=== PATIENT | female | born 1955 | race African-American/Black ===

== ENCOUNTER 2017-06-20 12:09 | Inpatient (IN) ==
[2017-06-20] MEDS ORDERED: ALBUTEROL/IPRATROPIUM 3 ML NEB RESP TX STA (12:38)
[2017-06-20] MEDS ORDERED: SODIUM CHLORIDE 0.9% 500 ML IV STA (12:38)
[2017-06-20] MEDS ORDERED: MORPHINE 2 MG/1 ML SYRINGE IV STA (12:38)
[2017-06-20] MEDS ORDERED: ONDANSETRON 4 MG/2 ML VIAL IV STA (12:38)
[2017-06-20] MEDS ORDERED: ASPIRIN 325 MG TABLET PO STA (12:38)
[2017-06-20] MEDS ORDERED: ONDANSETRON 4 MG/2 ML VIAL ONE (13:00)
[2017-06-20] MEDS ORDERED: ASPIRIN 325 MG TABLET ONE (13:01)
[2017-06-20] MEDS ORDERED: MORPHINE 2 MG/1 ML SYRINGE ONE (13:01)
[2017-06-20 13:07] LABS: Basophils # 0.1 10*3/uL (0.0-0.2); Basophils % 1.2 % (0.0-0.8); Eosinophils # 0.3 10*3/uL (0.0-0.87); Eosinophils % 2.7 % (0.00-10.9); Hematocrit 39.6 VOL% (35.7-47.0); Hemoglobin 13.6 GM/DL (12.0-16.0); Immature Granulocytes Absolute 0.11 #; Lymphocytes # 2.5 10*3/uL (1.4-4.0); Lymphocytes % 23.3 % (21.3-54.2); Mean Corpuscular HGB Conc 34.3 GM/DL (32-36); Mean Corpuscular Hemoglobin 30 PG (27-34); Mean Platelet Volume 10.1 FL (9.6-12.0); Monocytes # 0.9 10*3/uL (0.11-0.8); Monocytes % 8.6 % (1.7-12.7); Neutrophils # 6.8 10*3/uL (1.4-7.4); Neutrophils % 63.2 % (38.7-73.9); Platelet Count 211 T/CUMM (130-400); Red Blood Count 4.55 MC/CUMM (3.8-5.5); Red Cell Distribution Width 14.8 % (9.3-17.3); White Blood Count 10.8 T/CUMM (4-12)
[2017-06-20 13:18] LABS: INR 1.1; PT Patient Result 11.1 SECS
[2017-06-20 13:44] LABS: Albumin 3.7 G/DL (3.4-5.0); Bilirubin,Total 0.6 MG/DL (0.2-1.0); Calcium 9.2 MG/DL (8.5-10.1); Magnesium 1.8 MG/DL (1.8-2.4); Osmolality,Calculated 275.7 MOS/KG (273-304); Potassium 2.6 MMOL/L (3.5-5.1); Total Protein 6.5 G/DL (6.4-8.3)
[2017-06-20] MEDS ORDERED: POTASSIUM CHLORIDE 20 MEQ TABLET PO STA (13:49)
[2017-06-20] MEDS ORDERED: DEXTROSE 50% 25 GM/50 ML VIAL IV STA (13:50)
[2017-06-20] MEDS ORDERED: POTASSIUM CHLORIDE 20 MEQ TABLET PO ONE (14:06)
[2017-06-20] MEDS ORDERED: DEXTROSE 50% 25 GM/50 ML SYRINGE IV ONE (14:06)
[2017-06-20] MEDS ORDERED: ONDANSETRON 4 MG/2 ML VIAL IV PRN (15:16)
[2017-06-20] MEDS ORDERED: ALUM/MAG/SIMETH/LIDO VISC 1:1 30 ML BOTTLE PO STA (15:34)
[2017-06-20] MEDS ORDERED: ALUM/MAG/SIMETH/LIDO VISC 1:1 30 ML BOTTLE PO ONE (15:57)
[2017-06-20] MEDS ORDERED: ALBUTEROL/IPRATROPIUM 3 ML NEB RESP TX PRN (16:11)
[2017-06-20] MEDS ORDERED: ALBUTEROL 2.5 MG/3 ML NEB RESP TX PRN (16:11)
[2017-06-20] MEDS: ALBUTEROL 2.5 MG/3 ML NEB RESP TX SCH (20:32)
[2017-06-20 20:52] LABS: Troponin I Only 0.049 NG/ML (0.00-0.045)
[2017-06-20] MEDS ORDERED: THEOPHYLLINE ER 200 MG TABLET PO SCH (21:00)
[2017-06-20] MEDS: ACETAMINOPHEN 325 MG TABLET PO PRN (21:59)
[2017-06-20] MEDS: THEOPHYLLINE ER (24 HR) 200 MG CAPSULE PO SCH (21:59)
[2017-06-20] MEDS: MONTELUKAST 10 MG TABLET PO SCH (22:00)
[2017-06-20] MEDS: FLUTICASONE/SALMETEROL 250-50 DISKUS 14 DOSE INH SCH (22:00)
[2017-06-20] MEDS: SODIUM CHLORIDE 0.9% 1,000 ML IV SCH (22:01)
[2017-06-20] MEDS ORDERED: ALBUTEROL 2.5 MG/3 ML NEB RESP TX ONE (23:32)
[2017-06-21] MEDS: ALBUTEROL 2.5 MG/3 ML NEB RESP TX SCH ×4 (00:19→19:51)
[2017-06-21] MEDS: POTASSIUM CHLORIDE 20 MEQ TABLET PO PRN ×5 (06:21→21:44)
[2017-06-21 06:31] LABS: Basophils # 0.1 10*3/uL (0.0-0.2); Eosinophils # 0.3 10*3/uL (0.0-0.87); Eosinophils % 3.3 % (0.00-10.9); Hematocrit 35.1 VOL% (35.7-47.0); Immature Granulocytes % 0.4 %; Immature Granulocytes Absolute 0.04 #; Lymphocytes # 2.5 10*3/uL (1.4-4.0); Mean Corpuscular HGB Conc 34.2 GM/DL (32-36); Mean Corpuscular Hemoglobin 30 PG (27-34); Mean Corpuscular Volume 87.8 FL (87-102); Mean Platelet Volume 10.4 FL (9.6-12.0); Monocytes # 0.9 10*3/uL (0.11-0.8); Monocytes % 9.1 % (1.7-12.7); Neutrophils # 5.7 10*3/uL (1.4-7.4); Neutrophils % 60.2 % (38.7-73.9); Platelet Count 176 T/CUMM (130-400); White Blood Count 9.4 T/CUMM (4-12)
[2017-06-21 06:54] LABS: Calcium 8.8 MG/DL (8.5-10.1); Osmolality,Calculated 278.5 MOS/KG (273-304); Potassium 2.7 MMOL/L (3.5-5.1)
[2017-06-21 07:04] LABS: Free T4 (Free Thyroxine) 1.31 NG/DL (0.76-1.46); Thyroid Stimulating Hormone 1.17 uIU/ml (0.358-3.74)
[2017-06-21 07:16] LABS: Apearance,Urine CLEAR (Clear); Bilirubin,Urine Negative (Negative); Blood, Urine Negative (Negative); Glucose,Urine (UA) Negative (Negative); Hyaline Casts,Urine 1 /LPF (0-3); Ketones,Urine Negative (Negative); Mucus,Urine Occasional /LPF (Occasional); Nitrite,Urine Negative (Negative); Protein,Urine Negative; RBC,Urine <1 /HPF (0-4); Squamous Epithelial Cell,Urine Occasional /HPF (0-10); Urine Color Straw (Yellow); Urine Specific Gravity 1.005 (1.001-1.035); Urine Urobilinogen < 2.0 EU/DL (0.2-1.0); WBC,Urine <1 /HPF (0-6)
[2017-06-21] MEDS ORDERED: POTASSIUM CHLORIDE RIDER 10 MEQ in PREMIX 1 EACH IV PRN (07:56)
[2017-06-21] MEDS: POTASSIUM CHLORIDE 20 MEQ TABLET PO SCH (08:36)
[2017-06-21] MEDS: COLCHICINE 0.6 MG TABLET PO SCH (08:37)
[2017-06-21 10:34] LABS: Troponin I Only 0.053 NG/ML (0.00-0.045)
[2017-06-21] MEDS: THEOPHYLLINE ER (24 HR) 200 MG CAPSULE PO SCH ×2 (10:52→21:44)
[2017-06-21] MEDS: CHOLECALCIFEROL 400 UNIT TABLET PO SCH (10:52)
[2017-06-21] MEDS: prednisoLONE 5 MG TABLET PO SCH (10:52)
[2017-06-21] MEDS: ASPIRIN EC 81 MG TABLET PO SCH (10:53)
[2017-06-21] MEDS: MULTIVITAMIN (BEROCCA) TABLET PO SCH (10:53)
[2017-06-21] MEDS: PRAVASTATIN 40 MG TABLET PO SCH (10:53)
[2017-06-21] MEDS: ACETAMINOPHEN 325 MG TABLET PO PRN ×2 (10:54→16:59)
[2017-06-21] MEDS: PANTOPRAZOLE 40 MG TABLET PO SCH (10:54)
[2017-06-21] MEDS: FLUTICASONE/SALMETEROL 250-50 DISKUS 14 DOSE INH SCH ×2 (10:56→21:45)
[2017-06-21] MEDS: DILTIAZEM CD 120 MG CAPSULE PO SCH (10:56)
[2017-06-21] MEDS: metOLazone 5 MG TABLET PO SCH (10:57)
[2017-06-21] MEDS: DIGOXIN 0.125 MG TABLET PO SCH (12:58)
[2017-06-21] MEDS: diphenhydrAMINE CAP 25 MG CAPSULE PO PRN (19:09)
[2017-06-21] MEDS: ALBUTEROL/IPRATROPIUM 3 ML NEB RESP TX SCH (19:21)
[2017-06-21] MEDS: MONTELUKAST 10 MG TABLET PO SCH (21:44)
[2017-06-21] MEDS: DOCUSATE SODIUM 100 MG CAPSULE PO SCH (21:44)
[2017-06-21] MEDS: POLYETHYLENE GLYCOL POWDER 17 GM PACK PO SCH (21:45)
[2017-06-22] MEDS: ALBUTEROL 2.5 MG/3 ML NEB RESP TX SCH ×3 (00:31→12:11)
[2017-06-22] MEDS: ALBUTEROL/IPRATROPIUM 3 ML NEB RESP TX SCH ×5 (00:32→20:38)
[2017-06-22] MEDS: SODIUM CHLORIDE 0.9% 1,000 ML IV SCH ×4 (00:38→14:26)
[2017-06-22 05:20] LABS: Calcium 8.7 MG/DL (8.5-10.1); Osmolality,Calculated 279.4 MOS/KG (273-304); Potassium 3.4 MMOL/L (3.5-5.1)
[2017-06-22] MEDS: POTASSIUM CHLORIDE 20 MEQ TABLET PO PRN ×2 (06:19→11:26)
[2017-06-22] MEDS: diphenhydrAMINE CAP 25 MG CAPSULE PO PRN ×2 (06:46→19:25)
[2017-06-22] MEDS: POLYETHYLENE GLYCOL POWDER 17 GM PACK PO SCH ×2 (08:57→22:04)
[2017-06-22] MEDS: MULTIVITAMIN (BEROCCA) TABLET PO SCH (08:58)
[2017-06-22] MEDS: THEOPHYLLINE ER (24 HR) 200 MG CAPSULE PO SCH ×2 (09:00→22:04)
[2017-06-22] MEDS: DILTIAZEM CD 120 MG CAPSULE PO SCH (09:00)
[2017-06-22] MEDS: metOLazone 5 MG TABLET PO SCH (09:00)
[2017-06-22] MEDS: CHOLECALCIFEROL 400 UNIT TABLET PO SCH (09:00)
[2017-06-22] MEDS: ASPIRIN EC 81 MG TABLET PO SCH (09:00)
[2017-06-22] MEDS: prednisoLONE 5 MG TABLET PO SCH (09:00)
[2017-06-22] MEDS: COLCHICINE 0.6 MG TABLET PO SCH (09:00)
[2017-06-22] MEDS: POTASSIUM CHLORIDE 20 MEQ TABLET PO SCH (09:01)
[2017-06-22] MEDS: PRAVASTATIN 40 MG TABLET PO SCH (09:01)
[2017-06-22] MEDS: PANTOPRAZOLE 40 MG TABLET PO SCH (09:01)
[2017-06-22] MEDS: FLUTICASONE/SALMETEROL 250-50 DISKUS 14 DOSE INH SCH ×2 (09:02→22:05)
[2017-06-22] MEDS: DOCUSATE SODIUM 100 MG CAPSULE PO SCH ×2 (09:02→22:05)
[2017-06-22] MEDS: DIGOXIN 0.125 MG TABLET PO SCH (13:06)
[2017-06-22] MEDS: MONTELUKAST 10 MG TABLET PO SCH (22:05)
[2017-06-23] MEDS: ALBUTEROL/IPRATROPIUM 3 ML NEB RESP TX SCH ×4 (01:18→19:14)
[2017-06-23] MEDS: diphenhydrAMINE CAP 25 MG CAPSULE PO PRN ×2 (04:15→12:35)
[2017-06-23] MEDS: SODIUM CHLORIDE 0.9% 1,000 ML IV SCH (05:41)
[2017-06-23 05:51] LABS: Calcium 8.7 MG/DL (8.5-10.1); Osmolality,Calculated 277.4 MOS/KG (273-304); Potassium 3.9 MMOL/L (3.5-5.1)
[2017-06-23] MEDS: DILTIAZEM CD 120 MG CAPSULE PO SCH (08:44)
[2017-06-23] MEDS: POLYETHYLENE GLYCOL POWDER 17 GM PACK PO SCH ×2 (08:44→22:11)
[2017-06-23] MEDS: CHOLECALCIFEROL 400 UNIT TABLET PO SCH (08:46)
[2017-06-23] MEDS: POTASSIUM CHLORIDE 20 MEQ TABLET PO SCH (08:46)
[2017-06-23] MEDS: MULTIVITAMIN (BEROCCA) TABLET PO SCH (08:46)
[2017-06-23] MEDS: THEOPHYLLINE ER (24 HR) 200 MG CAPSULE PO SCH ×2 (08:46→22:10)
[2017-06-23] MEDS: DOCUSATE SODIUM 100 MG CAPSULE PO SCH ×2 (08:46→22:10)
[2017-06-23] MEDS: COLCHICINE 0.6 MG TABLET PO SCH (08:46)
[2017-06-23] MEDS: prednisoLONE 5 MG TABLET PO SCH (08:47)
[2017-06-23] MEDS: PRAVASTATIN 40 MG TABLET PO SCH (08:47)
[2017-06-23] MEDS: ASPIRIN EC 81 MG TABLET PO SCH (08:47)
[2017-06-23] MEDS: FLUTICASONE/SALMETEROL 250-50 DISKUS 14 DOSE INH SCH ×2 (08:48→22:10)
[2017-06-23] MEDS: PANTOPRAZOLE 40 MG TABLET PO SCH (10:48)
[2017-06-23] MEDS: metOLazone 5 MG TABLET PO SCH (10:48)
[2017-06-23] MEDS ORDERED: DIAZEPAM 5 MG TABLET PO ONE (11:49)
[2017-06-23] MEDS ORDERED: diphenhydrAMINE CAP 25 MG CAPSULE PO ONE (11:49)
[2017-06-23] MEDS: DIGOXIN 0.125 MG TABLET PO SCH (12:28)
[2017-06-23] MEDS ORDERED: NITROGLYCERIN SL 0.4 MG TABLET SL PRN (13:26)
[2017-06-23] MEDS: MONTELUKAST 10 MG TABLET PO SCH (22:10)
[2017-06-24] MEDS: ALBUTEROL/IPRATROPIUM 3 ML NEB RESP TX SCH ×4 (00:09→21:42)
[2017-06-24] MEDS ORDERED: SODIUM CHLORIDE 0.45% 1,000 ML IV SCH (03:00)
[2017-06-24 05:06] LABS: Basophils # 0.1 10*3/uL (0.0-0.2); Basophils % 1.1 % (0.0-0.8); Eosinophils # 0.4 10*3/uL (0.0-0.87); Eosinophils % 4.7 % (0.00-10.9); Hematocrit 34.2 VOL% (35.7-47.0); Hemoglobin 11.4 GM/DL (12.0-16.0); Immature Granulocytes % 0.4 %; Immature Granulocytes Absolute 0.04 #; Lymphocytes # 2.6 10*3/uL (1.4-4.0); Lymphocytes % 28.1 % (21.3-54.2); Mean Corpuscular HGB Conc 33.3 GM/DL (32-36); Mean Corpuscular Hemoglobin 30 PG (27-34); Mean Platelet Volume 10.1 FL (9.6-12.0); Monocytes # 0.8 10*3/uL (0.11-0.8); Monocytes % 8.8 % (1.7-12.7); Neutrophils # 5.2 10*3/uL (1.4-7.4); Neutrophils % 56.9 % (38.7-73.9); Platelet Count 180 T/CUMM (130-400); Red Cell Distribution Width 15.9 % (9.3-17.3); White Blood Count 9.1 T/CUMM (4-12)
[2017-06-24 05:36] LABS: Potassium 3.8 MMOL/L (3.5-5.1)
[2017-06-24] MEDS: diphenhydrAMINE CAP 25 MG CAPSULE PO PRN ×2 (05:41→18:29)
[2017-06-24] MEDS ORDERED: DIAZEPAM 5 MG TABLET PO ONE (06:00)
[2017-06-24] MEDS ORDERED: diphenhydrAMINE CAP 25 MG CAPSULE PO ONE (06:00)
[2017-06-24] MEDS ORDERED: HEPARIN/NACL 0.9% 2 UNITS/ML 2,000 ML IV ONE (07:22)
[2017-06-24] MEDS ORDERED: LIDOCAINE 1% 20 ML VIAL ONE (07:22)
[2017-06-24] MEDS ORDERED: fentaNYL 100 MCG/2 ML VIAL ONE (07:33)
[2017-06-24] MEDS ORDERED: MIDAZOLAM 2 MG/2 ML VIAL ONE (07:33)
[2017-06-24] MEDS: POLYETHYLENE GLYCOL POWDER 17 GM PACK PO SCH ×2 (10:25→22:29)
[2017-06-24] MEDS: THEOPHYLLINE ER (24 HR) 200 MG CAPSULE PO SCH ×2 (10:26→22:29)
[2017-06-24] MEDS: POTASSIUM CHLORIDE 20 MEQ TABLET PO SCH (10:26)
[2017-06-24] MEDS: COLCHICINE 0.6 MG TABLET PO SCH (10:26)
[2017-06-24] MEDS: DILTIAZEM CD 120 MG CAPSULE PO SCH (10:27)
[2017-06-24] MEDS: MULTIVITAMIN (BEROCCA) TABLET PO SCH (10:27)
[2017-06-24] MEDS: PANTOPRAZOLE 40 MG TABLET PO SCH (10:27)
[2017-06-24] MEDS: prednisoLONE 5 MG TABLET PO SCH (10:27)
[2017-06-24] MEDS: ASPIRIN EC 81 MG TABLET PO SCH (10:27)
[2017-06-24] MEDS: PRAVASTATIN 40 MG TABLET PO SCH (10:27)
[2017-06-24] MEDS: DOCUSATE SODIUM 100 MG CAPSULE PO SCH ×2 (10:28→22:29)
[2017-06-24] MEDS: metOLazone 5 MG TABLET PO SCH (10:28)
[2017-06-24] MEDS: FLUTICASONE/SALMETEROL 250-50 DISKUS 14 DOSE INH SCH ×2 (10:28→22:29)
[2017-06-24] MEDS: CHOLECALCIFEROL 400 UNIT TABLET PO SCH (10:28)
[2017-06-24] MEDS: DIGOXIN 0.125 MG TABLET PO SCH (13:59)
[2017-06-24] MEDS: MONTELUKAST 10 MG TABLET PO SCH (22:29)
[2017-06-25] MEDS: ALBUTEROL/IPRATROPIUM 3 ML NEB RESP TX SCH ×2 (02:11→08:52)
[2017-06-25] MEDS: diphenhydrAMINE CAP 25 MG CAPSULE PO PRN (02:31)
[2017-06-25 04:46] LABS: Basophils # 0.1 10*3/uL (0.0-0.2); Eosinophils # 0.5 10*3/uL (0.0-0.87); Eosinophils % 4.5 % (0.00-10.9); Hematocrit 32.6 VOL% (35.7-47.0); Hemoglobin 10.9 GM/DL (12.0-16.0); Immature Granulocytes % 0.5 %; Immature Granulocytes Absolute 0.05 #; Lymphocytes # 2.5 10*3/uL (1.4-4.0); Lymphocytes % 24.9 % (21.3-54.2); Mean Corpuscular HGB Conc 33.4 GM/DL (32-36); Mean Corpuscular Hemoglobin 30 PG (27-34); Mean Corpuscular Volume 89.8 FL (87-102); Mean Platelet Volume 10.7 FL (9.6-12.0); Monocytes # 0.9 10*3/uL (0.11-0.8); Monocytes % 8.5 % (1.7-12.7); Neutrophils # 6.1 10*3/uL (1.4-7.4); Neutrophils % 60.6 % (38.7-73.9); Platelet Count 204 T/CUMM (130-400); Red Blood Count 3.63 MC/CUMM (3.8-5.5); Red Cell Distribution Width 16.1 % (9.3-17.3); White Blood Count 10.1 T/CUMM (4-12)
[2017-06-25 05:15] LABS: Calcium 8.7 MG/DL (8.5-10.1); Osmolality,Calculated 279.1 MOS/KG (273-304); Potassium 3.9 MMOL/L (3.5-5.1)
[2017-06-25 08:23] VITALS: BP 84/64
[2017-06-25] MEDS: PRAVASTATIN 40 MG TABLET PO SCH (08:51)
[2017-06-25] MEDS: DOCUSATE SODIUM 100 MG CAPSULE PO SCH (08:51)
[2017-06-25] MEDS: POTASSIUM CHLORIDE 20 MEQ TABLET PO SCH (08:52)
[2017-06-25] MEDS: CHOLECALCIFEROL 400 UNIT TABLET PO SCH (08:53)
[2017-06-25] MEDS: THEOPHYLLINE ER (24 HR) 200 MG CAPSULE PO SCH (08:53)
[2017-06-25] MEDS: MULTIVITAMIN (BEROCCA) TABLET PO SCH (08:53)
[2017-06-25] MEDS: ASPIRIN EC 81 MG TABLET PO SCH (08:53)
[2017-06-25] MEDS: prednisoLONE 5 MG TABLET PO SCH (08:53)
[2017-06-25] MEDS: DILTIAZEM CD 120 MG CAPSULE PO SCH (08:53)
[2017-06-25] MEDS: COLCHICINE 0.6 MG TABLET PO SCH (08:54)
[2017-06-25] MEDS: POLYETHYLENE GLYCOL POWDER 17 GM PACK PO SCH (08:54)
[2017-06-25] MEDS: PANTOPRAZOLE 40 MG TABLET PO SCH (08:54)
[2017-06-25] MEDS: metOLazone 5 MG TABLET PO SCH (08:54)
[2017-06-25] MEDS: FLUTICASONE/SALMETEROL 250-50 DISKUS 14 DOSE INH SCH (08:57)
[2017-06-25] MEDS ORDERED: HEPARIN LOCK FLUSH 500 UNIT/5 ML SYRINGE IV ONE (09:52)
== END 2017-06-25 10:25 | disposition home health service (06) | DRG 286 ==
LOC: N.ED 12:09 → N.EDINP 12:09 → N.TELES 18:00 → SUATTDRO 06-21 11:59
PROVIDERS: ADMIT Hospitalist; ATTEND Internal Medicine

== ENCOUNTER 2017-09-13 10:36 | Inpatient (IN) ==
[2017-09-13] MEDS ORDERED: ONDANSETRON 4 MG/2 ML VIAL IV STA (11:01)
[2017-09-13] MEDS ORDERED: SODIUM CHLORIDE 0.9% 500 ML IV STA (11:01)
[2017-09-13 11:48] LABS: Basophils # 0.1 10*3/uL (0.0-0.2); Basophils % 0.8 % (0.0-0.8); Eosinophils # 0.2 10*3/uL (0.0-0.87); Eosinophils % 1.4 % (0.00-10.9); Hematocrit 41.9 VOL% (35.7-47.0); Hemoglobin 14.7 GM/DL (12.0-16.0); Immature Granulocytes % 0.2 %; Immature Granulocytes Absolute 0.02 #; Lymphocytes # 1.7 10*3/uL (1.4-4.0); Lymphocytes % 15.9 % (21.3-54.2); Mean Corpuscular HGB Conc 35.1 GM/DL (32-36); Mean Corpuscular Hemoglobin 30 PG (27-34); Mean Corpuscular Volume 85.2 FL (87-102); Monocytes # 0.9 10*3/uL (0.11-0.8); Monocytes % 8.2 % (1.7-12.7); Neutrophils # 7.9 10*3/uL (1.4-7.4); Neutrophils % 73.5 % (38.7-73.9); Platelet Count 292 T/CUMM (130-400); Red Blood Count 4.92 MC/CUMM (3.8-5.5); Red Cell Distribution Width 13.5 % (9.3-17.3); White Blood Count 10.8 T/CUMM (4-12)
[2017-09-13] MEDS ORDERED: ONDANSETRON 4 MG/2 ML VIAL ONE (12:04)
[2017-09-13 12:06] LABS: Alanine Aminotransferase 12 U/L (13-56); Alkaline Phosphatase 89 U/L (45-117); Aspartate Amino Transferase < 3 U/L (0-37); Blood Urea Nitrogen 16 MG/DL (7-18); Calcium 9.7 MG/DL (8.5-10.1); Glucose 97 MG/DL (74-106); Osmolality,Calculated 270.1 MOS/KG (273-304); Potassium 3.2 MMOL/L (3.5-5.1); Sodium 135 MMOL/L (136-145); Total Protein 7.4 G/DL (6.4-8.3)
[2017-09-13 12:14] LABS: Apearance,Urine Slightly Hazy (Clear); Bilirubin,Urine Negative (Negative); Blood, Urine Negative (Negative); Glucose,Urine (UA) Negative (Negative); Hyaline Casts,Urine 3 /LPF (0-3); Ketones,Urine Negative (Negative); Nitrite,Urine Negative (Negative); Protein,Urine Negative; Squamous Epithelial Cell,Urine Occasional /HPF (0-10); Urine Color Yellow (Yellow); Urine Specific Gravity 1.003 (1.001-1.035); Urine Urobilinogen < 2.0 EU/DL (0.2-1.0); WBC,Urine <1 /HPF (0-6)
[2017-09-13 12:21] LABS: Uric Acid 16.1 MG/DL (2.6-6.0)
[2017-09-13] MEDS ORDERED: methylPREDNISolone SOD SUC 125 MG/2 ML VIAL IV STA (13:46)
[2017-09-13] MEDS ORDERED: COLCHICINE 0.6 MG TABLET PO STA (13:49)
[2017-09-13] MEDS ORDERED: COLCHICINE 0.6 MG TABLET ONE (13:52)
[2017-09-13] MEDS ORDERED: methylPREDNISolone SOD SUC 125 MG/2 ML VIAL ONE (13:52)
[2017-09-13] MEDS ORDERED: ACETAMINOPHEN 325 MG TABLET PO PRN (15:17)
[2017-09-13] MEDS ORDERED: ONDANSETRON 4 MG/2 ML VIAL IV PRN (15:17)
[2017-09-13] MEDS ORDERED: DOCUSATE SODIUM 100 MG CAPSULE PO PRN (15:17)
[2017-09-13] MEDS ORDERED: guaiFENesin/DM ER 600-30 MG TABLET PO PRN (15:17)
[2017-09-13] MEDS ORDERED: LACTULOSE 20 GM/30 ML UDCUP PO PRN (15:17)
[2017-09-13] MEDS ORDERED: COLCHICINE 0.6 MG TABLET PO ONE (15:23)
[2017-09-13] MEDS ORDERED: ALBUTEROL 2.5 MG/3 ML NEB RESP TX PRN (15:42)
[2017-09-13] MEDS ORDERED: traMADol 50 MG TABLET PO PRN (15:42)
[2017-09-13 15:52] LABS: Risk Ratio 4.11; Thyroid Stimulating Hormone 0.598 uIU/ml (0.358-3.74); VLDL CHOLESTEROL 25.4 MG/DL
[2017-09-13] MEDS: SODIUM CHLORIDE 0.9% 1,000 ML IV SCH (17:41)
[2017-09-13] MEDS: predniSONE 20 MG TABLET PO SCH (17:42)
[2017-09-13] MEDS: FLUTICASONE/SALMETEROL 250-50 DISKUS 14 DOSE INH SCH (22:06)
[2017-09-13] MEDS: MONTELUKAST 10 MG TABLET PO SCH (22:07)
[2017-09-13] MEDS: PRAVASTATIN 40 MG TABLET PO SCH (22:07)
[2017-09-13] MEDS: METOPROLOL TARTRATE 25 MG TABLET PO SCH (22:07)
[2017-09-13] MEDS: INSULIN LISPRO 100 UNIT/ML SUBCUT SCH (22:07)
[2017-09-13] MEDS: THEOPHYLLINE ER (24 HR) 400 MG TABLET PO SCH (22:08)
[2017-09-14] MEDS ORDERED: diphenhydrAMINE CAP 25 MG CAPSULE ONE (00:59)
[2017-09-14] MEDS: diphenhydrAMINE CAP 25 MG CAPSULE PO PRN ×4 (01:01→21:22)
[2017-09-14] MEDS: SODIUM CHLORIDE 0.9% 1,000 ML IV SCH ×4 (01:32→23:49)
[2017-09-14] MEDS: POTASSIUM CHLORIDE 20 MEQ TABLET PO PRN ×4 (02:01→09:24)
[2017-09-14 06:23] LABS: Basophils % 0.3 % (0.0-0.8); Hematocrit 39.4 VOL% (35.7-47.0); Hemoglobin 13.8 GM/DL (12.0-16.0); Immature Granulocytes % 0.6 %; Immature Granulocytes Absolute 0.06 #; Lymphocytes # 1.3 10*3/uL (1.4-4.0); Lymphocytes % 12.8 % (21.3-54.2); Mean Corpuscular Hemoglobin 30 PG (27-34); Mean Corpuscular Volume 84.5 FL (87-102); Monocytes # 0.4 10*3/uL (0.11-0.8); Monocytes % 3.6 % (1.7-12.7); Neutrophils # 8.6 10*3/uL (1.4-7.4); Neutrophils % 82.7 % (38.7-73.9); Platelet Count 300 T/CUMM (130-400); Red Blood Count 4.66 MC/CUMM (3.8-5.5); Red Cell Distribution Width 13.4 % (9.3-17.3); White Blood Count 10.3 T/CUMM (4-12)
[2017-09-14 06:57] LABS: Albumin 3.3 G/DL (3.4-5.0); Bilirubin,Total 0.8 MG/DL (0.2-1.0); Osmolality,Calculated 272.2 MOS/KG (273-304); Potassium 3.9 MMOL/L (3.5-5.1)
[2017-09-14] MEDS: INSULIN LISPRO 100 UNIT/ML SUBCUT SCH ×4 (08:02→21:20)
[2017-09-14] MEDS ORDERED: FUROSEMIDE 40 MG TABLET PO SCH (09:00)
[2017-09-14] MEDS: METOPROLOL TARTRATE 25 MG TABLET PO SCH ×2 (09:20→21:22)
[2017-09-14] MEDS: DILTIAZEM CD 120 MG CAPSULE PO SCH (09:20)
[2017-09-14] MEDS: FLUTICASONE/SALMETEROL 250-50 DISKUS 14 DOSE INH SCH ×2 (09:22→21:21)
[2017-09-14] MEDS: ASPIRIN EC 81 MG TABLET PO SCH (09:23)
[2017-09-14] MEDS: PANTOPRAZOLE 40 MG TABLET PO SCH (09:23)
[2017-09-14] MEDS: THEOPHYLLINE ER (24 HR) 400 MG TABLET PO SCH ×2 (09:24→21:22)
[2017-09-14] MEDS: metOLazone 5 MG TABLET PO SCH (09:24)
[2017-09-14] MEDS: DIGOXIN 0.125 MG TABLET PO SCH ×2 (12:27→16:53)
[2017-09-14] MEDS: predniSONE 20 MG TABLET PO SCH (15:23)
[2017-09-14] MEDS ORDERED: SODIUM CHLORIDE 0.9% 500 ML IV ONE (15:34)
[2017-09-14] MEDS: ENOXAPARIN 30 MG/0.3 ML SYRINGE SUBCUT SCH (21:22)
[2017-09-14] MEDS: MONTELUKAST 10 MG TABLET PO SCH (21:22)
[2017-09-14] MEDS: PRAVASTATIN 40 MG TABLET PO SCH (21:22)
[2017-09-14] MEDS: ALUMINUM/MAGNES/SIMETH MAX STR 30 ML UDCUP PO PRN (23:15)
[2017-09-15 07:13] LABS: Basophils % 0.2 % (0.0-0.8); Hematocrit 35.5 VOL% (35.7-47.0); Hemoglobin 12.3 GM/DL (12.0-16.0); Immature Granulocytes % 0.9 %; Immature Granulocytes Absolute 0.11 #; Lymphocytes # 1.4 10*3/uL (1.4-4.0); Mean Corpuscular HGB Conc 34.6 GM/DL (32-36); Mean Corpuscular Hemoglobin 30 PG (27-34); Mean Corpuscular Volume 86.2 FL (87-102); Mean Platelet Volume 9.8 FL (9.6-12.0); Monocytes # 1.1 10*3/uL (0.11-0.8); Monocytes % 8.4 % (1.7-12.7); Neutrophils # 9.9 10*3/uL (1.4-7.4); Neutrophils % 79.5 % (38.7-73.9); Platelet Count 280 T/CUMM (130-400); Red Blood Count 4.12 MC/CUMM (3.8-5.5); Red Cell Distribution Width 13.7 % (9.3-17.3); White Blood Count 12.5 T/CUMM (4-12)
[2017-09-15 07:39] LABS: Albumin 3.1 G/DL (3.4-5.0); Bilirubin,Total 0.4 MG/DL (0.2-1.0); Calcium 8.4 MG/DL (8.5-10.1); Osmolality,Calculated 277.7 MOS/KG (273-304); Potassium 3.5 MMOL/L (3.5-5.1)
[2017-09-15 07:54] LABS: Theophylline 21.5 UG/ML (10-20)
[2017-09-15] MEDS: INSULIN LISPRO 100 UNIT/ML SUBCUT SCH ×4 (08:41→21:53)
[2017-09-15] MEDS: THEOPHYLLINE ER (24 HR) 400 MG TABLET PO SCH (08:42)
[2017-09-15] MEDS: FLUTICASONE/SALMETEROL 250-50 DISKUS 14 DOSE INH SCH ×2 (09:29→21:10)
[2017-09-15] MEDS: SODIUM CHLORIDE 0.9% 1,000 ML IV SCH ×2 (09:29→18:00)
[2017-09-15] MEDS: DILTIAZEM CD 120 MG CAPSULE PO SCH (09:30)
[2017-09-15] MEDS: metOLazone 5 MG TABLET PO SCH (09:35)
[2017-09-15] MEDS: PANTOPRAZOLE 40 MG TABLET PO SCH ×2 (09:35→21:11)
[2017-09-15] MEDS: ASPIRIN EC 81 MG TABLET PO SCH (09:35)
[2017-09-15] MEDS: METOPROLOL TARTRATE 25 MG TABLET PO SCH ×2 (09:35→21:11)
[2017-09-15] MEDS ORDERED: ALUM/MAG/SIMETH/LIDO VISC 1:1 30 ML BOTTLE PO ONE (10:09)
[2017-09-15] MEDS: predniSONE 20 MG TABLET PO SCH (11:39)
[2017-09-15] MEDS: DIGOXIN 0.125 MG TABLET PO SCH (14:44)
[2017-09-15] MEDS: PRAVASTATIN 40 MG TABLET PO SCH (21:10)
[2017-09-15] MEDS: ENOXAPARIN 30 MG/0.3 ML SYRINGE SUBCUT SCH (21:10)
[2017-09-15] MEDS: MONTELUKAST 10 MG TABLET PO SCH (21:11)
[2017-09-16 05:40] LABS: Basophils % 0.3 % (0.0-0.8); Eosinophils % 0.1 % (0.00-10.9); Hematocrit 34.7 VOL% (35.7-47.0); Hemoglobin 11.9 GM/DL (12.0-16.0); Immature Granulocytes % 0.9 %; Immature Granulocytes Absolute 0.08 #; Lymphocytes # 1.8 10*3/uL (1.4-4.0); Lymphocytes % 20.6 % (21.3-54.2); Mean Corpuscular HGB Conc 34.3 GM/DL (32-36); Mean Corpuscular Hemoglobin 30 PG (27-34); Mean Corpuscular Volume 87.2 FL (87-102); Mean Platelet Volume 10.1 FL (9.6-12.0); Monocytes # 0.7 10*3/uL (0.11-0.8); Monocytes % 7.6 % (1.7-12.7); Neutrophils # 6.2 10*3/uL (1.4-7.4); Neutrophils % 70.5 % (38.7-73.9); Platelet Count 267 T/CUMM (130-400); Red Blood Count 3.98 MC/CUMM (3.8-5.5); Red Cell Distribution Width 14.1 % (9.3-17.3); White Blood Count 8.8 T/CUMM (4-12)
[2017-09-16 06:04] LABS: Calcium 8.2 MG/DL (8.5-10.1); Osmolality,Calculated 281.4 MOS/KG (273-304); Potassium 3.3 MMOL/L (3.5-5.1)
[2017-09-16 06:08] LABS: Albumin 3.1 G/DL (3.4-5.0); Bilirubin,Total 0.6 MG/DL (0.2-1.0); Calcium 8.3 MG/DL (8.5-10.1); Potassium 3.3 MMOL/L (3.5-5.1); Total Protein 5.8 G/DL (6.4-8.3)
[2017-09-16] MEDS: INSULIN LISPRO 100 UNIT/ML SUBCUT SCH ×4 (08:12→22:54)
[2017-09-16] MEDS: POTASSIUM CHLORIDE 20 MEQ TABLET PO PRN ×2 (09:22→11:03)
[2017-09-16] MEDS: DILTIAZEM CD 120 MG CAPSULE PO SCH (09:22)
[2017-09-16] MEDS: METOPROLOL TARTRATE 25 MG TABLET PO SCH ×2 (09:22→23:02)
[2017-09-16] MEDS: ASPIRIN EC 81 MG TABLET PO SCH (09:23)
[2017-09-16] MEDS: PANTOPRAZOLE 40 MG TABLET PO SCH ×3 (09:23→23:02)
[2017-09-16] MEDS: metOLazone 5 MG TABLET PO SCH (09:23)
[2017-09-16] MEDS: FLUTICASONE/SALMETEROL 250-50 DISKUS 14 DOSE INH SCH ×2 (09:23→23:57)
[2017-09-16] MEDS: diphenhydrAMINE CAP 25 MG CAPSULE PO PRN ×2 (09:30→23:56)
[2017-09-16] MEDS: SODIUM CHLORIDE 0.9% 1,000 ML IV SCH (10:00)
[2017-09-16] MEDS: predniSONE 20 MG TABLET PO SCH (11:03)
[2017-09-16] MEDS ORDERED: NITROGLYCERIN SL 0.4 MG TABLET SL ONE (11:35)
[2017-09-16] MEDS ORDERED: ASPIRIN CHEW 81 MG TABLET PO ONE ×2 (11:35→11:36)
[2017-09-16] MEDS ORDERED: NITROGLYCERIN SL 0.4 MG TABLET SL PRN (11:36)
[2017-09-16] MEDS ORDERED: SODIUM CHLORIDE 0.9% 1,000 ML IV ONE (11:39)
[2017-09-16 11:56] LABS: Basophils # 0.1 10*3/uL (0.0-0.2); Basophils % 0.4 % (0.0-0.8); Eosinophils % 0.1 % (0.00-10.9); Hematocrit 37.8 VOL% (35.7-47.0); Hemoglobin 12.6 GM/DL (12.0-16.0); Immature Granulocytes % 0.9 %; Lymphocytes # 3.4 10*3/uL (1.4-4.0); Lymphocytes % 29.9 % (21.3-54.2); Mean Corpuscular HGB Conc 33.3 GM/DL (32-36); Mean Corpuscular Hemoglobin 30 PG (27-34); Mean Corpuscular Volume 88.5 FL (87-102); Mean Platelet Volume 9.9 FL (9.6-12.0); Monocytes % 9.1 % (1.7-12.7); Neutrophils # 6.7 10*3/uL (1.4-7.4); Neutrophils % 59.6 % (38.7-73.9); Platelet Count 293 T/CUMM (130-400); Red Blood Count 4.27 MC/CUMM (3.8-5.5); Red Cell Distribution Width 14.4 % (9.3-17.3); White Blood Count 11.3 T/CUMM (4-12)
[2017-09-16 12:05] LABS: INR 1.2; PT Patient Result 12.4 SECS; Partial Thromboplastin Time 29.2 SECS (0-40)
[2017-09-16 12:17] LABS: Albumin 3.2 G/DL (3.4-5.0); Bilirubin,Total 0.4 MG/DL (0.2-1.0); Calcium 7.8 MG/DL (8.5-10.1); Osmolality,Calculated 282.5 MOS/KG (273-304); Potassium 3.7 MMOL/L (3.5-5.1); Total Protein 5.8 G/DL (6.4-8.3); Troponin I Only 0.04 NG/ML (0.00-0.045)
[2017-09-16] MEDS ORDERED: LIDOCAINE 1% 20 ML VIAL ONE (12:39)
[2017-09-16] MEDS ORDERED: MEPERIDINE 25 MG/1 ML VIAL ONE (12:43)
[2017-09-16] MEDS ORDERED: MIDAZOLAM 2 MG/2 ML VIAL ONE (12:43)
[2017-09-16] MEDS ORDERED: HEPARIN 5,000 UNIT/1 ML VIAL ONE (12:56)
[2017-09-16] MEDS ORDERED: ONDANSETRON 4 MG/2 ML VIAL ONE (12:58)
[2017-09-16] MEDS ORDERED: DOPamine 800 MG/250 ML PREMIX IV ONE (13:12)
[2017-09-16] MEDS ORDERED: DOBUTamine 500 MG/250 ML PREMIX IV ONE ×2 (13:13)
[2017-09-16] MEDS ORDERED: NALOXONE 0.4 MG/ML VIAL ONE (13:14)
[2017-09-16 17:27] LABS: Troponin I Only 0.039 NG/ML (0.00-0.045)
[2017-09-16] MEDS: DIGOXIN 0.125 MG TABLET PO SCH (18:09)
[2017-09-16 19:38] LABS: Troponin I Only 0.047 NG/ML (0.00-0.045)
[2017-09-16 21:50] LABS: Troponin I Only 0.047 NG/ML (0.00-0.045)
[2017-09-16] MEDS: MONTELUKAST 10 MG TABLET PO SCH (23:01)
[2017-09-16] MEDS: PRAVASTATIN 40 MG TABLET PO SCH (23:02)
[2017-09-17] MEDS: SODIUM CHLORIDE 0.9% 1,000 ML IV SCH ×3 (00:45→23:25)
[2017-09-17 04:49] LABS: Basophils % 0.3 % (0.0-0.8); Hematocrit 37.2 VOL% (35.7-47.0); Hemoglobin 12.6 GM/DL (12.0-16.0); Immature Granulocytes % 0.7 %; Immature Granulocytes Absolute 0.08 #; Lymphocytes % 17.7 % (21.3-54.2); Mean Corpuscular HGB Conc 33.9 GM/DL (32-36); Mean Corpuscular Hemoglobin 29 PG (27-34); Mean Corpuscular Volume 86.9 FL (87-102); Mean Platelet Volume 10.1 FL (9.6-12.0); Monocytes # 0.9 10*3/uL (0.11-0.8); Monocytes % 8.5 % (1.7-12.7); Neutrophils % 72.8 % (38.7-73.9); Platelet Count 296 T/CUMM (130-400); Red Blood Count 4.28 MC/CUMM (3.8-5.5); Red Cell Distribution Width 14.4 % (9.3-17.3)
[2017-09-17 05:18] LABS: Albumin 3.3 G/DL (3.4-5.0); Bilirubin,Total 0.4 MG/DL (0.2-1.0); Calcium 8.4 MG/DL (8.5-10.1); Osmolality,Calculated 281.4 MOS/KG (273-304); Potassium 3.9 MMOL/L (3.5-5.1); Total Protein 6.3 G/DL (6.4-8.3)
[2017-09-17 05:55] LABS: Troponin I Only 0.045 NG/ML (0.00-0.045)
[2017-09-17] MEDS ORDERED: DEXTROSE 50% 25 GM/50 ML VIAL IV PRN (09:29)
[2017-09-17] MEDS ORDERED: GLUCAGON 1 MG VIAL IM PRN (09:29)
[2017-09-17] MEDS: INSULIN LISPRO 100 UNIT/ML SUBCUT SCH ×4 (10:37→22:27)
[2017-09-17] MEDS: THEOPHYLLINE ER (24 HR) 400 MG TABLET PO SCH ×2 (10:39→20:14)
[2017-09-17] MEDS: DILTIAZEM CD 120 MG CAPSULE PO SCH (10:39)
[2017-09-17] MEDS: predniSONE 20 MG TABLET PO SCH (10:40)
[2017-09-17] MEDS: PANTOPRAZOLE 40 MG TABLET PO SCH ×2 (10:40→20:13)
[2017-09-17] MEDS: ASPIRIN EC 81 MG TABLET PO SCH (10:41)
[2017-09-17] MEDS: METOPROLOL TARTRATE 25 MG TABLET PO SCH (10:41)
[2017-09-17] MEDS: metOLazone 5 MG TABLET PO SCH (10:50)
[2017-09-17] MEDS: FLUTICASONE/SALMETEROL 250-50 DISKUS 14 DOSE INH SCH ×2 (11:27→20:14)
[2017-09-17] MEDS: DOPamine 800 MG/250 ML PREMIX IV SCH ×2 (11:32→22:30)
[2017-09-17] MEDS ORDERED: ONDANSETRON 4 MG/2 ML VIAL ONE (11:38)
[2017-09-17] MEDS ORDERED: PROPOFOL 200 MG/20 ML VIAL IV ONE (11:38)
[2017-09-17] MEDS ORDERED: LIDOCAINE 100 MG/5 ML SYRINGE ONE (11:38)
[2017-09-17] MEDS: DIGOXIN 0.125 MG TABLET PO SCH (13:40)
[2017-09-17] MEDS: MONTELUKAST 10 MG TABLET PO SCH (20:13)
[2017-09-17] MEDS ORDERED: ATORVASTATIN 40 MG TABLET PO SCH (21:00)
[2017-09-18] MEDS: SODIUM CHLORIDE 0.9% 1,000 ML IV SCH ×3 (03:21→14:26)
[2017-09-18 04:37] LABS: Basophils % 0.2 % (0.0-0.8); Eosinophils % 0.1 % (0.00-10.9); Hematocrit 35.2 VOL% (35.7-47.0); Hemoglobin 11.5 GM/DL (12.0-16.0); Immature Granulocytes % 0.6 %; Immature Granulocytes Absolute 0.07 #; Lymphocytes # 1.8 10*3/uL (1.4-4.0); Lymphocytes % 16.5 % (21.3-54.2); Mean Corpuscular HGB Conc 32.7 GM/DL (32-36); Mean Corpuscular Hemoglobin 29 PG (27-34); Mean Corpuscular Volume 88.9 FL (87-102); Mean Platelet Volume 10.1 FL (9.6-12.0); Monocytes # 0.7 10*3/uL (0.11-0.8); Monocytes % 6.3 % (1.7-12.7); Neutrophils # 8.4 10*3/uL (1.4-7.4); Neutrophils % 76.3 % (38.7-73.9); Platelet Count 256 T/CUMM (130-400); Red Blood Count 3.96 MC/CUMM (3.8-5.5); Red Cell Distribution Width 14.1 % (9.3-17.3); White Blood Count 11.1 T/CUMM (4-12)
[2017-09-18 04:53] LABS: Calcium 8.5 MG/DL (8.5-10.1); Osmolality,Calculated 282.3 MOS/KG (273-304); Potassium 3.2 MMOL/L (3.5-5.1)
[2017-09-18] MEDS: INSULIN LISPRO 100 UNIT/ML SUBCUT SCH ×5 (08:03→21:19)
[2017-09-18] MEDS: POTASSIUM CHLORIDE 20 MEQ TABLET PO PRN (08:49)
[2017-09-18] MEDS: THEOPHYLLINE ER (24 HR) 400 MG TABLET PO SCH ×2 (08:50→21:14)
[2017-09-18] MEDS: metOLazone 5 MG TABLET PO SCH (08:50)
[2017-09-18] MEDS: ASPIRIN EC 81 MG TABLET PO SCH (08:50)
[2017-09-18] MEDS: PANTOPRAZOLE 40 MG TABLET PO SCH ×2 (08:50→21:14)
[2017-09-18] MEDS: FLUTICASONE/SALMETEROL 250-50 DISKUS 14 DOSE INH SCH ×2 (08:51→21:16)
[2017-09-18] MEDS: predniSONE 20 MG TABLET PO SCH (10:04)
[2017-09-18] MEDS: DOPamine 800 MG/250 ML PREMIX IV SCH (10:32)
[2017-09-18] MEDS: DIGOXIN 0.125 MG TABLET PO SCH (12:51)
[2017-09-18] MEDS: diphenhydrAMINE CAP 25 MG CAPSULE PO PRN ×3 (12:51→23:45)
[2017-09-18] MEDS: POTASSIUM CHLORIDE 20 MEQ TABLET PO SCH ×2 (14:11→21:14)
[2017-09-18] MEDS: ALUMINUM/MAGNES/SIMETH MAX STR 30 ML UDCUP PO PRN (20:05)
[2017-09-18] MEDS: ATORVASTATIN 20 MG TABLET PO SCH (21:14)
[2017-09-18] MEDS: MONTELUKAST 10 MG TABLET PO SCH (21:14)
[2017-09-19] MEDS: SODIUM CHLORIDE 0.9% 1,000 ML IV SCH ×2 (06:02→18:18)
[2017-09-19 07:06] LABS: Calcium 8.5 MG/DL (8.5-10.1); Osmolality,Calculated 282.1 MOS/KG (273-304); Potassium 3.7 MMOL/L (3.5-5.1)
[2017-09-19] MEDS: INSULIN LISPRO 100 UNIT/ML SUBCUT SCH ×4 (08:54→21:29)
[2017-09-19] MEDS: FLUTICASONE/SALMETEROL 250-50 DISKUS 14 DOSE INH SCH ×2 (10:08→21:34)
[2017-09-19] MEDS: ASPIRIN EC 81 MG TABLET PO SCH (10:08)
[2017-09-19] MEDS: COLCHICINE 0.6 MG TABLET PO SCH (10:08)
[2017-09-19] MEDS: predniSONE 20 MG TABLET PO SCH (10:08)
[2017-09-19] MEDS: THEOPHYLLINE ER (24 HR) 400 MG TABLET PO SCH ×2 (10:08→21:28)
[2017-09-19] MEDS: PANTOPRAZOLE 40 MG TABLET PO SCH ×2 (10:09→21:29)
[2017-09-19] MEDS: POTASSIUM CHLORIDE 20 MEQ TABLET PO SCH (10:09)
[2017-09-19] MEDS: diphenhydrAMINE CAP 25 MG CAPSULE PO PRN ×2 (10:10→18:01)
[2017-09-19] MEDS: DILTIAZEM CD 120 MG CAPSULE PO SCH (14:58)
[2017-09-19] MEDS: DIGOXIN 0.125 MG TABLET PO SCH (15:00)
[2017-09-19] MEDS: metOLazone 5 MG TABLET PO SCH (15:00)
[2017-09-19] MEDS ORDERED: FUROSEMIDE 40 MG TABLET PO ONE (18:00)
[2017-09-19] MEDS: SILDENAFIL 20 MG TABLET PO SCH (21:29)
[2017-09-19] MEDS: MONTELUKAST 10 MG TABLET PO SCH (21:29)
[2017-09-19] MEDS: ATORVASTATIN 20 MG TABLET PO SCH (21:29)
[2017-09-19] MEDS: ALUMINUM/MAGNES/SIMETH MAX STR 30 ML UDCUP PO PRN (21:34)
[2017-09-20] MEDS: diphenhydrAMINE CAP 25 MG CAPSULE PO PRN ×3 (03:00→20:35)
[2017-09-20 05:44] LABS: Calcium 8.5 MG/DL (8.5-10.1); Osmolality,Calculated 280.3 MOS/KG (273-304); Potassium 3.7 MMOL/L (3.5-5.1)
[2017-09-20] MEDS ORDERED: MAGNESIUM SULF RIDER 4 GM in PREMIX 1 EACH IV PRN (07:11)
[2017-09-20] MEDS ORDERED: MAGNESIUM SULF RIDER 2 GM in PREMIX 1 EACH IV PRN (07:11)
[2017-09-20] MEDS: INSULIN LISPRO 100 UNIT/ML SUBCUT SCH ×4 (08:34→20:32)
[2017-09-20] MEDS: DILTIAZEM CD 120 MG CAPSULE PO SCH (08:39)
[2017-09-20] MEDS: COLCHICINE 0.6 MG TABLET PO SCH (08:40)
[2017-09-20] MEDS: SILDENAFIL 20 MG TABLET PO SCH ×3 (08:40→20:35)
[2017-09-20] MEDS: metOLazone 5 MG TABLET PO SCH (08:40)
[2017-09-20] MEDS: THEOPHYLLINE ER (24 HR) 400 MG TABLET PO SCH ×2 (08:40→20:34)
[2017-09-20] MEDS: PANTOPRAZOLE 40 MG TABLET PO SCH ×2 (08:40→20:35)
[2017-09-20] MEDS: ASPIRIN EC 81 MG TABLET PO SCH (08:41)
[2017-09-20] MEDS: FLUTICASONE/SALMETEROL 250-50 DISKUS 14 DOSE INH SCH ×2 (08:41→20:35)
[2017-09-20] MEDS: predniSONE 20 MG TABLET PO SCH (10:07)
[2017-09-20] MEDS: SODIUM CHLORIDE 0.9% 1,000 ML IV SCH (10:43)
[2017-09-20] MEDS: DIGOXIN 0.125 MG TABLET PO SCH (14:43)
[2017-09-20] MEDS ORDERED: FUROSEMIDE 40 MG/4 ML VIAL IV ONE (18:11)
[2017-09-20] MEDS: ATORVASTATIN 20 MG TABLET PO SCH (20:35)
[2017-09-20] MEDS: METOPROLOL TARTRATE 25 MG TABLET PO SCH (20:35)
[2017-09-20] MEDS: MAGNESIUM OXIDE 400 MG TABLET PO SCH (20:35)
[2017-09-20] MEDS: MONTELUKAST 10 MG TABLET PO SCH (20:35)
[2017-09-21 06:59] LABS: Albumin 3.7 G/DL (3.4-5.0); Bilirubin,Total 0.6 MG/DL (0.2-1.0); Calcium 9.4 MG/DL (8.5-10.1); Osmolality,Calculated 276.4 MOS/KG (273-304); Potassium 3.2 MMOL/L (3.5-5.1); Total Protein 6.2 G/DL (6.4-8.3)
[2017-09-21] MEDS ORDERED: POTASSIUM CHLORIDE 20 MEQ TABLET PO ONE (08:22)
[2017-09-21] MEDS ORDERED: ALUMINUM/MAGNES/SIMETH MAX STR 30 ML UDCUP PO SCH (09:00)
[2017-09-21] MEDS: COLCHICINE 0.6 MG TABLET PO SCH (10:02)
[2017-09-21] MEDS: DILTIAZEM CD 120 MG CAPSULE PO SCH (10:03)
[2017-09-21] MEDS: METOPROLOL TARTRATE 25 MG TABLET PO SCH (10:03)
[2017-09-21] MEDS: ASPIRIN EC 81 MG TABLET PO SCH (10:03)
[2017-09-21] MEDS: PANTOPRAZOLE 40 MG TABLET PO SCH (10:03)
[2017-09-21] MEDS: SILDENAFIL 20 MG TABLET PO SCH (10:03)
[2017-09-21] MEDS: MAGNESIUM OXIDE 400 MG TABLET PO SCH (10:03)
[2017-09-21] MEDS: metOLazone 5 MG TABLET PO SCH (10:08)
[2017-09-21] MEDS: THEOPHYLLINE ER (24 HR) 400 MG TABLET PO SCH (10:08)
[2017-09-21] MEDS: FLUTICASONE/SALMETEROL 250-50 DISKUS 14 DOSE INH SCH (10:09)
[2017-09-21] MEDS: INSULIN LISPRO 100 UNIT/ML SUBCUT SCH (10:16)
[2017-09-21 12:11] VITALS: BP 110/70
[2017-09-21] MEDS: predniSONE 20 MG TABLET PO SCH (12:29)
== END 2017-09-21 12:13 | disposition home health service (06) | DRG 381 ==
LOC: EDBD → EDUNIT# → N.ED 10:36 → SUATTDRO 13:50 → SUPCPDRO 13:50 → N.EDINP 13:50 → N.2E 15:35 → N.ICU 09-16 11:59 → N.2E 09-18 16:35
PROVIDERS: ADMIT Internal Medicine; ATTEND Internal Medicine Cardiovascular Disease

== ENCOUNTER 2017-10-09 10:00 | Observation (INO) ==
[2017-10-09] MEDS ORDERED: SODIUM CHLORIDE 0.9% 1,000 ML IV STA (10:45)
[2017-10-09 10:50] LABS: Basophils # 0.1 10*3/uL (0.0-0.2); Basophils % 0.4 % (0.0-0.8); Eosinophils # 0.2 10*3/uL (0.0-0.87); Eosinophils % 1.5 % (0.00-10.9); Hematocrit 40.3 VOL% (35.7-47.0); Immature Granulocytes % 1.5 %; Immature Granulocytes Absolute 0.17 #; Lymphocytes # 3.5 10*3/uL (1.4-4.0); Lymphocytes % 30.8 % (21.3-54.2); Mean Corpuscular HGB Conc 32.3 GM/DL (32-36); Mean Corpuscular Hemoglobin 29 PG (27-34); Mean Corpuscular Volume 90.4 FL (87-102); Monocytes # 0.7 10*3/uL (0.11-0.8); Monocytes % 6.5 % (1.7-12.7); Neutrophils # 6.8 10*3/uL (1.4-7.4); Neutrophils % 59.3 % (38.7-73.9); Platelet Count 206 T/CUMM (130-400); Red Blood Count 4.46 MC/CUMM (3.8-5.5); Red Cell Distribution Width 15.7 % (9.3-17.3); White Blood Count 11.5 T/CUMM (4-12)
[2017-10-09 11:21] LABS: Albumin 3.8 G/DL (3.4-5.0); Bilirubin,Total 0.5 MG/DL (0.2-1.0); Potassium 3.5 MMOL/L (3.5-5.1); Total Protein 6.5 G/DL (6.4-8.3); Troponin I Only 0.036 NG/ML (0.00-0.045)
[2017-10-09] MEDS ORDERED: DOCUSATE SODIUM 100 MG CAPSULE PO PRN (13:59)
[2017-10-09] MEDS ORDERED: ONDANSETRON 4 MG/2 ML VIAL IV PRN (13:59)
[2017-10-09] MEDS ORDERED: LACTULOSE 20 GM/30 ML UDCUP PO PRN (13:59)
[2017-10-09] MEDS: PANTOPRAZOLE 40 MG TABLET PO SCH (14:13)
[2017-10-09 15:32] LABS: Apearance,Urine Slightly Hazy (Clear); Bacteria,Urine Occasional /HPF (Few); Bilirubin,Urine Negative (Negative); Blood, Urine Negative (Negative); Glucose,Urine (UA) Negative (Negative); Ketones,Urine Negative (Negative); Mucus,Urine Occasional /LPF (Occasional); Nitrite,Urine Negative (Negative); Protein,Urine Negative; RBC,Urine <1 /HPF (0-4); Squamous Epithelial Cell,Urine Occasional /HPF (0-10); Urine Color Yellow (Yellow); Urine Specific Gravity 1.006 (1.001-1.035); Urine Urobilinogen < 2.0 EU/DL (0.2-1.0); WBC,Urine <1 /HPF (0-6)
[2017-10-09] MEDS ORDERED: NYSTATIN CREAM 15 GM TUBE TOP PRN (16:52)
[2017-10-09] MEDS ORDERED: NITROGLYCERIN SL 0.4 MG TABLET SL PRN (16:52)
[2017-10-09] MEDS ORDERED: ALBUTEROL 2.5 MG/3 ML NEB RESP TX PRN ×2 (16:52→19:00)
[2017-10-09] MEDS: METOPROLOL TARTRATE 25 MG TABLET PO SCH (21:13)
[2017-10-09] MEDS: ACETAMINOPHEN 325 MG TABLET PO PRN (21:19)
[2017-10-09] MEDS: FLUTICASONE/SALMETEROL 250-50 DISKUS 14 DOSE INH SCH (21:19)
[2017-10-10 07:19] LABS: Basophils # 0.1 10*3/uL (0.0-0.2); Basophils % 0.5 % (0.0-0.8); Eosinophils # 0.2 10*3/uL (0.0-0.87); Eosinophils % 1.8 % (0.00-10.9); Hematocrit 36.9 VOL% (35.7-47.0); Hemoglobin 12.2 GM/DL (12.0-16.0); Immature Granulocytes % 1.1 %; Immature Granulocytes Absolute 0.12 #; Lymphocytes # 3.4 10*3/uL (1.4-4.0); Lymphocytes % 32.3 % (21.3-54.2); Mean Corpuscular HGB Conc 33.1 GM/DL (32-36); Mean Corpuscular Hemoglobin 30 PG (27-34); Mean Platelet Volume 9.7 FL (9.6-12.0); Monocytes # 0.9 10*3/uL (0.11-0.8); Monocytes % 8.1 % (1.7-12.7); Neutrophils # 5.9 10*3/uL (1.4-7.4); Neutrophils % 56.2 % (38.7-73.9); Platelet Count 170 T/CUMM (130-400); Red Cell Distribution Width 15.8 % (9.3-17.3); White Blood Count 10.5 T/CUMM (4-12)
[2017-10-10 07:34] LABS: Calcium 8.7 MG/DL (8.5-10.1); Osmolality,Calculated 286.1 MOS/KG (273-304); Potassium 3.3 MMOL/L (3.5-5.1)
[2017-10-10] MEDS ORDERED: HEPARIN/NACL 0.9% 2 UNITS/ML 500 ML IV ONE (08:14)
[2017-10-10] MEDS ORDERED: LIDOCAINE 1% 20 ML VIAL ONE ×2 (08:14→10:08)
[2017-10-10] MEDS ORDERED: ISOPROTERENOL 1 MG/5 ML VIAL IV ONE (08:15)
[2017-10-10] MEDS ORDERED: MIDAZOLAM 2 MG/2 ML VIAL ONE ×2 (08:20→09:08)
[2017-10-10] MEDS ORDERED: fentaNYL 100 MCG/2 ML VIAL ONE ×2 (08:20→09:08)
[2017-10-10] MEDS ORDERED: HEPARIN 5,000 UNIT/1 ML VIAL ONE (09:22)
[2017-10-10] MEDS ORDERED: VANCOMYCIN 500 MG VIAL ONE (09:39)
[2017-10-10] MEDS ORDERED: TISSUE ADHESIVE 1 EACH APPLICATOR TOP ONE (09:49)
[2017-10-10] MEDS: METOPROLOL TARTRATE 25 MG TABLET PO SCH ×2 (10:59→22:26)
[2017-10-10] MEDS: DILTIAZEM CD 120 MG CAPSULE PO SCH (10:59)
[2017-10-10] MEDS: COLCHICINE 0.6 MG TABLET PO SCH (10:59)
[2017-10-10] MEDS: ASPIRIN EC 81 MG TABLET PO SCH (10:59)
[2017-10-10] MEDS: FLUTICASONE/SALMETEROL 250-50 DISKUS 14 DOSE INH SCH ×2 (11:00→22:21)
[2017-10-10] MEDS: PANTOPRAZOLE 40 MG TABLET PO SCH (11:00)
[2017-10-10] MEDS: predniSONE 5 MG TABLET PO SCH (11:00)
[2017-10-10] MEDS ORDERED: DIGOXIN 0.125 MG TABLET PO SCH (13:00)
[2017-10-10] MEDS: SILDENAFIL 20 MG TABLET PO SCH ×2 (15:36→22:26)
[2017-10-10] MEDS: ACETAMINOPHEN 325 MG TABLET PO PRN (22:26)
[2017-10-11] MEDS: predniSONE 5 MG TABLET PO SCH (09:33)
[2017-10-11] MEDS: PANTOPRAZOLE 40 MG TABLET PO SCH (09:33)
[2017-10-11] MEDS: DILTIAZEM CD 120 MG CAPSULE PO SCH (09:34)
[2017-10-11] MEDS: SILDENAFIL 20 MG TABLET PO SCH (09:35)
[2017-10-11] MEDS: METOPROLOL TARTRATE 25 MG TABLET PO SCH (09:35)
[2017-10-11] MEDS: ASPIRIN EC 81 MG TABLET PO SCH (09:35)
[2017-10-11] MEDS: COLCHICINE 0.6 MG TABLET PO SCH (09:35)
[2017-10-11] MEDS: FLUTICASONE/SALMETEROL 250-50 DISKUS 14 DOSE INH SCH (09:35)
[2017-10-11 12:10] VITALS: BP 90/66
== END 2017-10-11 12:20 | disposition home or self-care (01) ==
LOC: N.EDINP 10:00 → N.ED 10:00 → N.5E 14:01
PROVIDERS: ADMIT Internal Medicine; ATTEND Internal Medicine

== ENCOUNTER 2017-10-25 12:15 | Inpatient (IN) ==
[2017-10-25] MEDS ORDERED: ONDANSETRON 4 MG/2 ML VIAL IV STA (12:56)
[2017-10-25] MEDS ORDERED: ONDANSETRON 4 MG/2 ML VIAL ONE (13:02)
[2017-10-25] MEDS ORDERED: SODIUM CHLORIDE 0.9% 1,000 ML IV STA (13:25)
[2017-10-25 14:20] LABS: Basophils # 0.1 10*3/uL (0.0-0.2); Basophils % 0.8 % (0.0-0.8); Eosinophils # 0.1 10*3/uL (0.0-0.87); Eosinophils % 1.2 % (0.00-10.9); Hematocrit 36.8 VOL% (35.7-47.0); Hemoglobin 11.7 GM/DL (12.0-16.0); Immature Granulocytes % 0.8 %; Immature Granulocytes Absolute 0.07 #; Lymphocytes % 23.7 % (21.3-54.2); Mean Corpuscular HGB Conc 31.8 GM/DL (32-36); Mean Corpuscular Hemoglobin 29 PG (27-34); Mean Corpuscular Volume 91.3 FL (87-102); Monocytes # 1.2 10*3/uL (0.11-0.8); Neutrophils # 5.1 10*3/uL (1.4-7.4); Neutrophils % 59.5 % (38.7-73.9); Platelet Count 235 T/CUMM (130-400); Red Blood Count 4.03 MC/CUMM (3.8-5.5); Red Cell Distribution Width 15.9 % (9.3-17.3); White Blood Count 8.6 T/CUMM (4-12)
[2017-10-25 14:43] LABS: Alanine Aminotransferase 30 U/L (13-56); Albumin 3.2 G/DL (3.4-5.0); Alkaline Phosphatase 89 U/L (45-117); Aspartate Amino Transferase 68 U/L (0-37); Blood Urea Nitrogen 18 MG/DL (7-18); Calcium 8.4 MG/DL (8.5-10.1); Glucose 88 MG/DL (74-106); Osmolality,Calculated 283.1 MOS/KG (273-304); Potassium 3.3 MMOL/L (3.5-5.1); Sodium 142 MMOL/L (136-145); Total Protein 5.7 G/DL (6.4-8.3); Troponin I Only 0.037 NG/ML (0.00-0.045)
[2017-10-25 16:44] LABS: INR 1.1; PT Patient Result 11.9 SECS
[2017-10-25] MEDS ORDERED: ONDANSETRON 4 MG/2 ML VIAL IV PRN (18:12)
[2017-10-25] MEDS ORDERED: DEXTROSE 50% 25 GM/50 ML VIAL IV PRN (18:12)
[2017-10-25] MEDS ORDERED: GLUCAGON 1 MG VIAL IM PRN (18:12)
[2017-10-25] MEDS: THEOPHYLLINE ER (24 HR) 200 MG CAPSULE PO SCH (18:53)
[2017-10-25] MEDS: ALBUTEROL/IPRATROPIUM 3 ML NEB RESP TX SCH (20:32)
[2017-10-25] MEDS: PRAVASTATIN 40 MG TABLET PO SCH (21:31)
[2017-10-25] MEDS: traZODone 50 MG TABLET PO SCH (21:31)
[2017-10-25] MEDS: INSULIN REGULAR 100 UNIT/ML SUBCUT SCH (21:31)
[2017-10-26] MEDS: ALBUTEROL/IPRATROPIUM 3 ML NEB RESP TX SCH ×4 (02:00→19:29)
[2017-10-26] MEDS ORDERED: PROMETHAZINE 25 MG TABLET PO PRN (07:24)
[2017-10-26] MEDS ORDERED: ALBUTEROL 2.5 MG/3 ML NEB RESP TX PRN ×2 (07:24→13:00)
[2017-10-26] MEDS ORDERED: DICLOFENAC 1% GEL 100 GM TUBE TOP PRN (07:24)
[2017-10-26] MEDS ORDERED: MECLIZINE 25 MG TABLET PO PRN (07:24)
[2017-10-26] MEDS ORDERED: NITROGLYCERIN SL 0.4 MG TABLET SL PRN (07:24)
[2017-10-26] MEDS ORDERED: CYCLOBENZAPRINE 10 MG TABLET PO PRN (07:24)
[2017-10-26 08:15] LABS: Blood Urea Nitrogen 23 MG/DL (7-18); Calcium 8.4 MG/DL (8.5-10.1); Glucose 73 MG/DL (74-106); Osmolality,Calculated 277.7 MOS/KG (273-304); Potassium 3.3 MMOL/L (3.5-5.1); Sodium 138 MMOL/L (136-145); Troponin I Only 0.043 NG/ML (0.00-0.045)
[2017-10-26] MEDS: diphenhydrAMINE CAP 25 MG CAPSULE PO SCH ×4 (08:37→20:43)
[2017-10-26] MEDS ORDERED: FUROSEMIDE 40 MG TABLET PO SCH (09:00)
[2017-10-26] MEDS ORDERED: CHERRY TART PO SCH (09:00)
[2017-10-26] MEDS: OMEGA 3 ACID ETHYL ESTERS 1 GM CAPSULE PO SCH (09:48)
[2017-10-26] MEDS: DILTIAZEM CD 120 MG CAPSULE PO SCH (09:48)
[2017-10-26] MEDS: FAMOTIDINE 20 MG TABLET PO SCH (09:49)
[2017-10-26] MEDS: CHOLECALCIFEROL 400 UNIT TABLET PO SCH (09:49)
[2017-10-26] MEDS: PANTOPRAZOLE 40 MG TABLET PO SCH (09:49)
[2017-10-26] MEDS: COLCHICINE 0.6 MG TABLET PO SCH (09:49)
[2017-10-26] MEDS: MAGNESIUM OXIDE 400 MG TABLET PO SCH (09:49)
[2017-10-26] MEDS: MULTIVITAMIN (BEROCCA) TABLET PO SCH (09:50)
[2017-10-26] MEDS: POTASSIUM CHLORIDE 10 MEQ TABLET PO SCH (09:50)
[2017-10-26] MEDS: THEOPHYLLINE ER (24 HR) 200 MG CAPSULE PO SCH ×2 (09:50→17:25)
[2017-10-26] MEDS: predniSONE 5 MG TABLET PO SCH (09:50)
[2017-10-26] MEDS: MONTELUKAST 10 MG TABLET PO SCH (09:50)
[2017-10-26] MEDS: ASPIRIN 325 MG TABLET PO SCH (09:51)
[2017-10-26] MEDS: metOLazone 5 MG TABLET PO SCH (09:51)
[2017-10-26] MEDS: FLUTICASONE/SALMETEROL 250-50 DISKUS 14 DOSE INH SCH ×2 (09:59→20:42)
[2017-10-26] MEDS: SILDENAFIL 20 MG TABLET PO SCH ×3 (10:00→20:46)
[2017-10-26] MEDS: INSULIN REGULAR 100 UNIT/ML SUBCUT SCH ×4 (12:03→20:47)
[2017-10-26] MEDS: THEOPHYLLINE ER (24 HR) 400 MG TABLET PO SCH ×2 (12:14→20:43)
[2017-10-26] MEDS: DIGOXIN 0.125 MG TABLET PO SCH (13:53)
[2017-10-26] MEDS: traZODone 50 MG TABLET PO SCH ×2 (20:43→20:46)
[2017-10-26] MEDS: PRAVASTATIN 40 MG TABLET PO SCH ×2 (20:43→20:47)
[2017-10-27] MEDS: ALBUTEROL/IPRATROPIUM 3 ML NEB RESP TX SCH ×4 (00:56→19:25)
[2017-10-27] MEDS ORDERED: ENOXAPARIN 40 MG/0.4 ML SYRINGE SUBCUT ONE (06:00)
[2017-10-27] MEDS ORDERED: methylPREDNISolone SOD SUC 125 MG/2 ML VIAL IV ONE (06:30)
[2017-10-27] MEDS ORDERED: MORPHINE 4 MG/1 ML VIAL IV PRN (06:42)
[2017-10-27] MEDS: FUROSEMIDE 40 MG/4 ML VIAL IV SCH (09:04)
[2017-10-27] MEDS: diphenhydrAMINE CAP 25 MG CAPSULE PO SCH ×4 (09:05→21:22)
[2017-10-27] MEDS: COLCHICINE 0.6 MG TABLET PO SCH (09:05)
[2017-10-27] MEDS: FAMOTIDINE 20 MG TABLET PO SCH (09:05)
[2017-10-27] MEDS: MULTIVITAMIN (BEROCCA) TABLET PO SCH (09:05)
[2017-10-27] MEDS: ASPIRIN 325 MG TABLET PO SCH (09:06)
[2017-10-27] MEDS: THEOPHYLLINE ER (24 HR) 200 MG CAPSULE PO SCH ×2 (09:06→16:53)
[2017-10-27] MEDS: MONTELUKAST 10 MG TABLET PO SCH (09:06)
[2017-10-27] MEDS: predniSONE 5 MG TABLET PO SCH (09:07)
[2017-10-27] MEDS: POTASSIUM CHLORIDE 10 MEQ TABLET PO SCH (09:08)
[2017-10-27] MEDS: THEOPHYLLINE ER (24 HR) 400 MG TABLET PO SCH ×2 (09:08→21:23)
[2017-10-27] MEDS: DILTIAZEM CD 120 MG CAPSULE PO SCH (09:09)
[2017-10-27] MEDS: OMEGA 3 ACID ETHYL ESTERS 1 GM CAPSULE PO SCH (09:09)
[2017-10-27] MEDS: FLUTICASONE/SALMETEROL 250-50 DISKUS 14 DOSE INH SCH ×2 (09:21→21:22)
[2017-10-27] MEDS ORDERED: ENOXAPARIN 30 MG/0.3 ML SYRINGE SUBCUT SCH (10:00)
[2017-10-27] MEDS: SILDENAFIL 20 MG TABLET PO SCH ×3 (10:32→21:23)
[2017-10-27] MEDS: CHOLECALCIFEROL 400 UNIT TABLET PO SCH (10:32)
[2017-10-27] MEDS: metOLazone 5 MG TABLET PO SCH (10:32)
[2017-10-27] MEDS: MAGNESIUM OXIDE 400 MG TABLET PO SCH (10:33)
[2017-10-27] MEDS: PANTOPRAZOLE 40 MG TABLET PO SCH (10:33)
[2017-10-27] MEDS: INSULIN REGULAR 100 UNIT/ML SUBCUT SCH ×4 (10:33→21:23)
[2017-10-27] MEDS ORDERED: DIGOXIN 0.125 MG TABLET PO ONE (11:30)
[2017-10-27] MEDS: methylPREDNISolone SOD SUC 40 MG/1 ML VIAL IV SCH ×2 (16:51→22:11)
[2017-10-27] MEDS: DIGOXIN 0.125 MG TABLET PO SCH (16:52)
[2017-10-27] MEDS: traZODone 50 MG TABLET PO SCH ×2 (21:22)
[2017-10-27] MEDS: POTASSIUM CHLORIDE 20 MEQ TABLET PO SCH (21:23)
[2017-10-27] MEDS: PRAVASTATIN 40 MG TABLET PO SCH ×2 (21:23)
[2017-10-28] MEDS: ALBUTEROL/IPRATROPIUM 3 ML NEB RESP TX SCH ×4 (00:09→21:25)
[2017-10-28 05:44] LABS: Albumin 3.2 G/DL (3.4-5.0); Bilirubin,Total 1.1 MG/DL (0.2-1.0); Osmolality,Calculated 274.2 MOS/KG (273-304); Potassium 3.3 MMOL/L (3.5-5.1)
[2017-10-28] MEDS: methylPREDNISolone SOD SUC 40 MG/1 ML VIAL IV SCH ×3 (05:59→21:47)
[2017-10-28] MEDS: INSULIN REGULAR 100 UNIT/ML SUBCUT SCH ×4 (07:56→21:49)
[2017-10-28] MEDS: MONTELUKAST 10 MG TABLET PO SCH (08:53)
[2017-10-28] MEDS: CHOLECALCIFEROL 400 UNIT TABLET PO SCH (08:53)
[2017-10-28] MEDS: metOLazone 5 MG TABLET PO SCH (08:53)
[2017-10-28] MEDS: ASPIRIN 325 MG TABLET PO SCH (08:53)
[2017-10-28] MEDS: COLCHICINE 0.6 MG TABLET PO SCH (08:53)
[2017-10-28] MEDS: MAGNESIUM OXIDE 400 MG TABLET PO SCH (08:54)
[2017-10-28] MEDS: diphenhydrAMINE CAP 25 MG CAPSULE PO SCH ×4 (08:54→21:48)
[2017-10-28] MEDS: PANTOPRAZOLE 40 MG TABLET PO SCH (08:54)
[2017-10-28] MEDS: MULTIVITAMIN (BEROCCA) TABLET PO SCH (08:54)
[2017-10-28] MEDS: THEOPHYLLINE ER (24 HR) 200 MG CAPSULE PO SCH ×2 (08:54→16:49)
[2017-10-28] MEDS: THEOPHYLLINE ER (24 HR) 400 MG TABLET PO SCH ×2 (08:54→21:48)
[2017-10-28] MEDS: FAMOTIDINE 20 MG TABLET PO SCH (08:54)
[2017-10-28] MEDS: OMEGA 3 ACID ETHYL ESTERS 1 GM CAPSULE PO SCH (08:55)
[2017-10-28] MEDS: POTASSIUM CHLORIDE 20 MEQ TABLET PO SCH ×2 (08:55→21:48)
[2017-10-28] MEDS: SILDENAFIL 20 MG TABLET PO SCH ×3 (08:55→21:48)
[2017-10-28] MEDS: predniSONE 5 MG TABLET PO SCH (08:55)
[2017-10-28] MEDS: DILTIAZEM CD 120 MG CAPSULE PO SCH (08:55)
[2017-10-28] MEDS: FLUTICASONE/SALMETEROL 250-50 DISKUS 14 DOSE INH SCH ×2 (08:56→21:51)
[2017-10-28] MEDS: FUROSEMIDE 40 MG/4 ML VIAL IV SCH (08:56)
[2017-10-28] MEDS ORDERED: AMIODARONE INJ 450 MG in DEXTROSE 5% 241 ML IV SCH (09:30)
[2017-10-28] MEDS: APIXABAN 5 MG TABLET PO SCH ×2 (09:33→21:48)
[2017-10-28] MEDS ORDERED: MAGNESIUM HYDROXIDE SUSP 30 ML UDCUP PO ONE (11:49)
[2017-10-28] MEDS: DIGOXIN 0.125 MG TABLET PO SCH (12:14)
[2017-10-28] MEDS ORDERED: SODIUM CHLORIDE 0.45% 500 ML IV ONE (12:18)
[2017-10-28] MEDS: AMIODARONE INJ 450 MG in DEXTROSE 5% 241 ML IV SCH (16:48)
[2017-10-28 17:54] LABS: ABG Base Excess 2.4 MMOL/L (-2.5-2.5); ABG HCO3 26.4 MMOL/L (20-26); ABG PCO2 27.5 MM HG (35-48); ABG PH 7.546 (7.35-7.45); ABG PO2 68.6 MM HG (80-95); ABG TCO2 21.1 MMOL/L (23-27)
[2017-10-28] MEDS: traZODone 50 MG TABLET PO SCH ×2 (21:48→21:50)
[2017-10-28] MEDS: PRAVASTATIN 40 MG TABLET PO SCH (21:50)
[2017-10-28] MEDS: POLYETHYLENE GLYCOL POWDER 17 GM PACK PO PRN (21:57)
[2017-10-29] MEDS: ALBUTEROL/IPRATROPIUM 3 ML NEB RESP TX SCH ×4 (00:18→19:30)
[2017-10-29] MEDS: methylPREDNISolone SOD SUC 40 MG/1 ML VIAL IV SCH (06:03)
[2017-10-29] MEDS: AMIODARONE INJ 450 MG in DEXTROSE 5% 241 ML IV SCH ×2 (06:06→21:14)
[2017-10-29 06:17] LABS: Basophils % 0.2 % (0.0-0.8); Hematocrit 31.6 VOL% (35.7-47.0); Hemoglobin 10.9 GM/DL (12.0-16.0); Immature Granulocytes % 4.1 %; Immature Granulocytes Absolute 0.82 #; Lymphocytes % 5.2 % (21.3-54.2); Mean Corpuscular HGB Conc 34.5 GM/DL (32-36); Mean Corpuscular Hemoglobin 29 PG (27-34); Mean Corpuscular Volume 84.3 FL (87-102); Mean Platelet Volume 10.3 FL (9.6-12.0); Monocytes # 0.8 10*3/uL (0.11-0.8); Monocytes % 4.2 % (1.7-12.7); Neutrophils # 17.1 10*3/uL (1.4-7.4); Neutrophils % 86.3 % (38.7-73.9); Platelet Count 284 T/CUMM (130-400); Red Blood Count 3.75 MC/CUMM (3.8-5.5); Red Cell Distribution Width 15.6 % (9.3-17.3); White Blood Count 19.8 T/CUMM (4-12)
[2017-10-29 06:36] LABS: Band Neutrophils 2 % (0-10); Lymphocytes 5 % (20-55); Segmented Neutrophils 86 % (50-85); Total Cells Counted 100
[2017-10-29 06:37] LABS: Giant Platelets Few; Hypochromasia 1+; Ovalocytes Slight; Platelet Estimate Adequate
[2017-10-29 06:51] LABS: Albumin 3.2 G/DL (3.4-5.0); Bilirubin,Direct 0.19 MG/DL (0.0-0.20); Bilirubin,Indirect 0.3 MG/DL (0.0-1.0); Bilirubin,Total 0.5 MG/DL (0.2-1.0); Calcium 8.5 MG/DL (8.5-10.1); Osmolality,Calculated 269.7 MOS/KG (273-304); Potassium 3.6 MMOL/L (3.5-5.1)
[2017-10-29] MEDS: INSULIN REGULAR 100 UNIT/ML SUBCUT SCH ×4 (09:37→21:05)
[2017-10-29] MEDS: FAMOTIDINE 20 MG TABLET PO SCH (09:51)
[2017-10-29] MEDS: POTASSIUM CHLORIDE 20 MEQ TABLET PO SCH ×2 (09:52→21:05)
[2017-10-29] MEDS: MAGNESIUM OXIDE 400 MG TABLET PO SCH (09:52)
[2017-10-29] MEDS: OMEGA 3 ACID ETHYL ESTERS 1 GM CAPSULE PO SCH (09:52)
[2017-10-29] MEDS: SILDENAFIL 20 MG TABLET PO SCH ×3 (09:52→21:05)
[2017-10-29] MEDS: THEOPHYLLINE ER (24 HR) 200 MG CAPSULE PO SCH (09:52)
[2017-10-29] MEDS: MONTELUKAST 10 MG TABLET PO SCH (09:52)
[2017-10-29] MEDS: PANTOPRAZOLE 40 MG TABLET PO SCH (09:52)
[2017-10-29] MEDS: COLCHICINE 0.6 MG TABLET PO SCH (09:52)
[2017-10-29] MEDS: diphenhydrAMINE CAP 25 MG CAPSULE PO SCH ×5 (09:52→21:05)
[2017-10-29] MEDS: CHOLECALCIFEROL 400 UNIT TABLET PO SCH (09:52)
[2017-10-29] MEDS: FLUTICASONE/SALMETEROL 250-50 DISKUS 14 DOSE INH SCH ×2 (09:52→21:06)
[2017-10-29] MEDS: MULTIVITAMIN (BEROCCA) TABLET PO SCH (09:53)
[2017-10-29] MEDS: ASPIRIN CHEW 81 MG TABLET PO SCH (09:53)
[2017-10-29] MEDS: APIXABAN 5 MG TABLET PO SCH ×2 (09:53→21:05)
[2017-10-29] MEDS: THEOPHYLLINE ER (24 HR) 400 MG TABLET PO SCH (09:53)
[2017-10-29] MEDS: DILTIAZEM INJ 100 MG in SODIUM CHLORIDE 0.9% 100 ML IV SCH ×2 (11:05→21:13)
[2017-10-29] MEDS: DIGOXIN 0.125 MG TABLET PO SCH (12:41)
[2017-10-29] MEDS: AMIODARONE 200 MG TABLET PO SCH ×2 (14:07→21:05)
[2017-10-29] MEDS: traZODone 50 MG TABLET PO SCH (21:05)
[2017-10-29] MEDS: PRAVASTATIN 40 MG TABLET PO SCH (21:06)
[2017-10-30] MEDS: ALBUTEROL/IPRATROPIUM 3 ML NEB RESP TX SCH ×4 (00:52→20:02)
[2017-10-30] MEDS: DILTIAZEM INJ 100 MG in SODIUM CHLORIDE 0.9% 100 ML IV SCH ×2 (05:57→12:04)
[2017-10-30 05:58] LABS: Basophils % 0.1 % (0.0-0.8); Hematocrit 31.7 VOL% (35.7-47.0); Hemoglobin 10.5 GM/DL (12.0-16.0); Immature Granulocytes Absolute 0.72 #; Lymphocytes # 0.9 10*3/uL (1.4-4.0); Lymphocytes % 5.3 % (21.3-54.2); Mean Corpuscular HGB Conc 33.1 GM/DL (32-36); Mean Corpuscular Hemoglobin 29 PG (27-34); Mean Corpuscular Volume 88.1 FL (87-102); Mean Platelet Volume 9.9 FL (9.6-12.0); Monocytes # 1.1 10*3/uL (0.11-0.8); Monocytes % 6.4 % (1.7-12.7); Neutrophils % 84.2 % (38.7-73.9); Platelet Count 264 T/CUMM (130-400); Red Cell Distribution Width 15.8 % (9.3-17.3); White Blood Count 17.8 T/CUMM (4-12)
[2017-10-30 06:17] LABS: Calcium 8.8 MG/DL (8.5-10.1); Osmolality,Calculated 274.1 MOS/KG (273-304); Potassium 4.2 MMOL/L (3.5-5.1)
[2017-10-30 06:35] LABS: Hypochromasia 1+
[2017-10-30 06:36] LABS: Giant Platelets Few; Ovalocytes Slight; Platelet Estimate Adequate
[2017-10-30] MEDS ORDERED: methylPREDNISolone SOD SUC 40 MG/1 ML VIAL IV SCH (09:00)
[2017-10-30] MEDS: INSULIN REGULAR 100 UNIT/ML SUBCUT SCH ×4 (09:03→21:08)
[2017-10-30] MEDS: MONTELUKAST 10 MG TABLET PO SCH (09:05)
[2017-10-30] MEDS: CHOLECALCIFEROL 400 UNIT TABLET PO SCH (09:05)
[2017-10-30] MEDS: COLCHICINE 0.6 MG TABLET PO SCH (09:05)
[2017-10-30] MEDS: OMEGA 3 ACID ETHYL ESTERS 1 GM CAPSULE PO SCH (09:05)
[2017-10-30] MEDS: MAGNESIUM OXIDE 400 MG TABLET PO SCH (09:06)
[2017-10-30] MEDS: PANTOPRAZOLE 40 MG TABLET PO SCH (09:06)
[2017-10-30] MEDS: FAMOTIDINE 20 MG TABLET PO SCH (09:06)
[2017-10-30] MEDS: AMIODARONE 200 MG TABLET PO SCH ×2 (09:06→21:07)
[2017-10-30] MEDS: MULTIVITAMIN (BEROCCA) TABLET PO SCH (09:06)
[2017-10-30] MEDS: ASPIRIN CHEW 81 MG TABLET PO SCH (09:06)
[2017-10-30] MEDS: POTASSIUM CHLORIDE 20 MEQ TABLET PO SCH ×2 (09:07→21:07)
[2017-10-30] MEDS: diphenhydrAMINE CAP 25 MG CAPSULE PO SCH ×4 (09:07→21:08)
[2017-10-30] MEDS: APIXABAN 5 MG TABLET PO SCH ×2 (09:07→21:08)
[2017-10-30] MEDS: FLUTICASONE/SALMETEROL 250-50 DISKUS 14 DOSE INH SCH ×2 (09:12→21:08)
[2017-10-30] MEDS: ALLOPURINOL 100 MG TABLET PO SCH (12:03)
[2017-10-30] MEDS: SILDENAFIL 20 MG TABLET PO SCH ×3 (12:04→21:08)
[2017-10-30] MEDS: MUPIROCIN 2% OINT 22 GM TUBE TOP SCH ×2 (12:04→21:08)
[2017-10-30] MEDS: AMIODARONE INJ 450 MG in DEXTROSE 5% 241 ML IV SCH (12:57)
[2017-10-30] MEDS: DIGOXIN 0.125 MG TABLET PO SCH (13:06)
[2017-10-30] MEDS: methylPREDNISolone SOD SUC 40 MG/1 ML VIAL IV SCH (15:59)
[2017-10-30] MEDS: PRAVASTATIN 40 MG TABLET PO SCH (21:08)
[2017-10-30] MEDS: traZODone 50 MG TABLET PO SCH (21:08)
[2017-10-31] MEDS: methylPREDNISolone SOD SUC 40 MG/1 ML VIAL IV SCH ×3 (00:18→15:51)
[2017-10-31] MEDS: ALBUTEROL/IPRATROPIUM 3 ML NEB RESP TX SCH ×4 (03:02→20:23)
[2017-10-31 05:31] LABS: Basophils % 0.2 % (0.0-0.8); Hematocrit 31.1 VOL% (35.7-47.0); Hemoglobin 10.1 GM/DL (12.0-16.0); Immature Granulocytes % 7.4 %; Immature Granulocytes Absolute 1.28 #; Lymphocytes # 1.1 10*3/uL (1.4-4.0); Lymphocytes % 6.1 % (21.3-54.2); Mean Corpuscular HGB Conc 32.5 GM/DL (32-36); Mean Corpuscular Hemoglobin 29 PG (27-34); Mean Corpuscular Volume 88.9 FL (87-102); Mean Platelet Volume 10.5 FL (9.6-12.0); Monocytes # 0.7 10*3/uL (0.11-0.8); Monocytes % 4.3 % (1.7-12.7); Neutrophils # 14.1 10*3/uL (1.4-7.4); Platelet Count 264 T/CUMM (130-400); Red Cell Distribution Width 16.2 % (9.3-17.3); White Blood Count 17.3 T/CUMM (4-12)
[2017-10-31 05:59] LABS: Band Neutrophils 5 % (0-10); Burr Cells Slight; Hypochromasia 1+; Lymphocytes 2 % (20-55); Ovalocytes Slight; Platelet Estimate Adequate; Segmented Neutrophils 89 % (50-85); Total Cells Counted 100
[2017-10-31 06:10] LABS: Calcium 8.5 MG/DL (8.5-10.1); Osmolality,Calculated 278.7 MOS/KG (273-304); Potassium 4.5 MMOL/L (3.5-5.1)
[2017-10-31] MEDS: FLUTICASONE/SALMETEROL 250-50 DISKUS 14 DOSE INH SCH ×2 (08:26→21:36)
[2017-10-31] MEDS: MUPIROCIN 2% OINT 22 GM TUBE TOP SCH ×2 (08:27→21:36)
[2017-10-31] MEDS: FAMOTIDINE 20 MG TABLET PO SCH (08:27)
[2017-10-31] MEDS: MAGNESIUM OXIDE 400 MG TABLET PO SCH (08:28)
[2017-10-31] MEDS: APIXABAN 5 MG TABLET PO SCH ×2 (08:28→21:35)
[2017-10-31] MEDS: ASPIRIN CHEW 81 MG TABLET PO SCH (08:28)
[2017-10-31] MEDS: POTASSIUM CHLORIDE 20 MEQ TABLET PO SCH ×2 (08:28→21:35)
[2017-10-31] MEDS: COLCHICINE 0.6 MG TABLET PO SCH (08:29)
[2017-10-31] MEDS: AMIODARONE 200 MG TABLET PO SCH (08:29)
[2017-10-31] MEDS: MULTIVITAMIN (BEROCCA) TABLET PO SCH (08:29)
[2017-10-31] MEDS: ALLOPURINOL 100 MG TABLET PO SCH (08:29)
[2017-10-31] MEDS: CHOLECALCIFEROL 400 UNIT TABLET PO SCH (08:29)
[2017-10-31] MEDS: OMEGA 3 ACID ETHYL ESTERS 1 GM CAPSULE PO SCH (08:29)
[2017-10-31] MEDS: PANTOPRAZOLE 40 MG TABLET PO SCH (08:30)
[2017-10-31] MEDS: diphenhydrAMINE CAP 25 MG CAPSULE PO SCH ×4 (08:30→21:35)
[2017-10-31] MEDS: INSULIN REGULAR 100 UNIT/ML SUBCUT SCH ×4 (08:31→22:14)
[2017-10-31] MEDS ORDERED: DIGOXIN 0.125 MG TABLET PO SCH (10:56)
[2017-10-31] MEDS: SILDENAFIL 20 MG TABLET PO SCH ×3 (12:37→21:35)
[2017-10-31] MEDS: MONTELUKAST 10 MG TABLET PO SCH (12:37)
[2017-10-31] MEDS: DILTIAZEM CD 180 MG CAPSULE PO SCH ×2 (12:40→21:35)
[2017-10-31] MEDS: POLYETHYLENE GLYCOL POWDER 17 GM PACK PO PRN (21:34)
[2017-10-31] MEDS: traZODone 50 MG TABLET PO SCH (21:35)
[2017-10-31] MEDS: PRAVASTATIN 40 MG TABLET PO SCH (21:36)
[2017-11-01] MEDS: methylPREDNISolone SOD SUC 40 MG/1 ML VIAL IV SCH ×2 (00:02→08:33)
[2017-11-01] MEDS: ALBUTEROL/IPRATROPIUM 3 ML NEB RESP TX SCH ×2 (01:07→06:52)
[2017-11-01 05:56] LABS: Basophils # 0.1 10*3/uL (0.0-0.2); Basophils % 0.3 % (0.0-0.8); Hematocrit 32.6 VOL% (35.7-47.0); Hemoglobin 10.7 GM/DL (12.0-16.0); Immature Granulocytes % 7.5 %; Immature Granulocytes Absolute 1.75 #; Lymphocytes # 1.3 10*3/uL (1.4-4.0); Lymphocytes % 5.4 % (21.3-54.2); Mean Corpuscular HGB Conc 32.8 GM/DL (32-36); Mean Corpuscular Hemoglobin 29 PG (27-34); Mean Corpuscular Volume 88.6 FL (87-102); Monocytes % 4.1 % (1.7-12.7); Neutrophils # 19.3 10*3/uL (1.4-7.4); Neutrophils % 82.7 % (38.7-73.9); Platelet Count 271 T/CUMM (130-400); Red Blood Count 3.68 MC/CUMM (3.8-5.5); Red Cell Distribution Width 16.4 % (9.3-17.3); White Blood Count 23.3 T/CUMM (4-12)
[2017-11-01 06:15] LABS: Band Neutrophils 3 % (0-10); Lymphocytes 5 % (20-55); Platelet Estimate Adequate; Segmented Neutrophils 89 % (50-85); Total Cells Counted 100
[2017-11-01 06:16] LABS: Giant Platelets Few; Hypochromasia 1+; Ovalocytes Slight
[2017-11-01 06:31] LABS: Calcium 8.3 MG/DL (8.5-10.1); Osmolality,Calculated 279.7 MOS/KG (273-304); Potassium 4.5 MMOL/L (3.5-5.1)
[2017-11-01] MEDS: INSULIN REGULAR 100 UNIT/ML SUBCUT SCH ×2 (08:02→11:59)
[2017-11-01] MEDS: FAMOTIDINE 20 MG TABLET PO SCH (08:34)
[2017-11-01] MEDS: MULTIVITAMIN (BEROCCA) TABLET PO SCH (08:34)
[2017-11-01] MEDS: MONTELUKAST 10 MG TABLET PO SCH (08:34)
[2017-11-01] MEDS: MAGNESIUM OXIDE 400 MG TABLET PO SCH (08:34)
[2017-11-01] MEDS: COLCHICINE 0.6 MG TABLET PO SCH (08:34)
[2017-11-01] MEDS: CHOLECALCIFEROL 400 UNIT TABLET PO SCH (08:34)
[2017-11-01] MEDS: SILDENAFIL 20 MG TABLET PO SCH (08:35)
[2017-11-01] MEDS: PANTOPRAZOLE 40 MG TABLET PO SCH (08:35)
[2017-11-01] MEDS: DILTIAZEM CD 180 MG CAPSULE PO SCH (08:35)
[2017-11-01] MEDS: ASPIRIN CHEW 81 MG TABLET PO SCH (08:35)
[2017-11-01] MEDS: diphenhydrAMINE CAP 25 MG CAPSULE PO SCH ×2 (08:35→12:00)
[2017-11-01] MEDS: ALLOPURINOL 100 MG TABLET PO SCH (08:35)
[2017-11-01] MEDS: POTASSIUM CHLORIDE 20 MEQ TABLET PO SCH (08:35)
[2017-11-01] MEDS: OMEGA 3 ACID ETHYL ESTERS 1 GM CAPSULE PO SCH (08:35)
[2017-11-01] MEDS: FLUTICASONE/SALMETEROL 250-50 DISKUS 14 DOSE INH SCH (08:36)
[2017-11-01] MEDS: APIXABAN 5 MG TABLET PO SCH (08:36)
[2017-11-01] MEDS: MUPIROCIN 2% OINT 22 GM TUBE TOP SCH (08:36)
[2017-11-01] MEDS ORDERED: AMIODARONE 200 MG TABLET PO SCH (09:00)
[2017-11-01] MEDS: POLYETHYLENE GLYCOL POWDER 17 GM PACK PO PRN (09:58)
[2017-11-01 12:09] VITALS: BP 117/67
[2017-11-01] MEDS ORDERED: THEOPHYLLINE ER (24 HR) 400 MG CAPSULE PO SCH (17:00)
== END 2017-11-01 13:05 | disposition swing bed (61) | DRG 291 ==
LOC: EDBD → EDUNIT# → N.ED 12:15 → N.EDINP 16:41 → N.TELEN 18:12
PROVIDERS: ADMIT Family Medicine; ATTEND Family Medicine

== ENCOUNTER 2017-11-29 09:39 | Observation (INO) ==
[2017-11-29] MEDS ORDERED: ONDANSETRON 4 MG/2 ML VIAL IV STA (10:55)
[2017-11-29] MEDS ORDERED: SODIUM CHLORIDE 0.9% 500 ML IV STA (10:55)
[2017-11-29] MEDS ORDERED: ONDANSETRON 4 MG/2 ML VIAL ONE (11:02)
[2017-11-29 11:06] LABS: Basophils # 0.1 10*3/uL (0.0-0.2); Basophils % 0.9 % (0.0-0.8); Eosinophils # 0.1 10*3/uL (0.0-0.87); Eosinophils % 0.8 % (0.00-10.9); Hematocrit 41.2 VOL% (35.7-47.0); Hemoglobin 13.5 GM/DL (12.0-16.0); Immature Granulocytes % 1.5 %; Immature Granulocytes Absolute 0.18 #; Lymphocytes # 2.9 10*3/uL (1.4-4.0); Lymphocytes % 23.5 % (21.3-54.2); Mean Corpuscular HGB Conc 32.8 GM/DL (32-36); Mean Corpuscular Hemoglobin 29 PG (27-34); Mean Platelet Volume 9.7 FL (9.6-12.0); Monocytes # 1.1 10*3/uL (0.11-0.8); Monocytes % 9.4 % (1.7-12.7); NRBC # 0.02 10*3/uL; Neutrophils # 7.7 10*3/uL (1.4-7.4); Neutrophils % 63.9 % (38.7-73.9); Platelet Count 312 T/CUMM (130-400); Red Blood Count 4.68 MC/CUMM (3.8-5.5); Red Cell Distribution Width 16.2 % (9.3-17.3); White Blood Count 12.1 T/CUMM (4-12)
[2017-11-29 11:35] LABS: Albumin 4.1 G/DL (3.4-5.0); Bilirubin,Total 0.7 MG/DL (0.2-1.0); Calcium 9.5 MG/DL (8.5-10.1); Total Protein 7.4 G/DL (6.4-8.3)
[2017-11-29 11:36] LABS: Osmolality,Calculated 268.4 MOS/KG (273-304)
[2017-11-29 11:38] LABS: Potassium 2.3 MMOL/L (3.5-5.1)
[2017-11-29] MEDS ORDERED: POTASSIUM CHLORIDE RIDER 20 MEQ in PREMIX 1 EACH IV STA (11:43)
[2017-11-29 11:45] LABS: Apearance,Urine CLOUDY (Clear); Bacteria,Urine Occasional /HPF (Few); Bilirubin,Urine Negative (Negative); Blood, Urine Negative (Negative); Glucose,Urine (UA) Negative (Negative); Granular Casts,Urine 2 /LPF (0-1); Hyaline Casts,Urine 43 /LPF (0-3); Ketones,Urine Negative (Negative); Mucus,Urine Occasional /LPF (Occasional); Nitrite,Urine Negative (Negative); Protein,Urine Negative; RBC,Urine 2 /HPF (0-4); Squamous Epithelial Cell,Urine Moderate /HPF (0-10); Urine Color Amber (Yellow); Urine Specific Gravity 1.016 (1.001-1.035); Urine Urobilinogen < 2.0 EU/DL (0.2-1.0); WBC,Urine 4 /HPF (0-6); White Blood Cell Casts,Urine 2 /LPF (<1)
[2017-11-29] MEDS ORDERED: ACETAMINOPHEN 325 MG TABLET PO PRN (16:44)
[2017-11-29] MEDS ORDERED: ONDANSETRON 4 MG/2 ML VIAL IV PRN (16:44)
[2017-11-29] MEDS ORDERED: ALBUTEROL 2.5 MG/3 ML NEB RESP TX PRN (16:47)
[2017-11-29] MEDS ORDERED: POLYETHYLENE GLYCOL POWDER 17 GM PACK PO PRN (16:47)
[2017-11-29] MEDS ORDERED: PROMETHAZINE 25 MG TABLET PO PRN (16:47)
[2017-11-29] MEDS ORDERED: COLCHICINE 0.6 MG TABLET PO PRN (16:47)
[2017-11-29] MEDS ORDERED: NITROGLYCERIN SL 0.4 MG TABLET SL PRN (16:47)
[2017-11-29] MEDS ORDERED: ALLOPURINOL 100 MG TABLET PO PRN (16:47)
[2017-11-29] MEDS ORDERED: ENOXAPARIN 30 MG/0.3 ML SYRINGE SUBCUT SCH (17:00)
[2017-11-29] MEDS ORDERED: CIPROFLOXACIN INJ 400 MG in PREMIX 1 EACH IV SCH (17:00)
[2017-11-29] MEDS ORDERED: POTASSIUM CHLORIDE INJ 40 MEQ in SODIUM CHLORIDE 0.45% 1,000 ML IV SCH (18:00)
[2017-11-29] MEDS ORDERED: diphenhydrAMINE CAP 25 MG CAPSULE PO PRN (20:21)
[2017-11-29] MEDS: ALBUTEROL/IPRATROPIUM 3 ML NEB RESP TX SCH (20:36)
[2017-11-29] MEDS ORDERED: traZODone 50 MG TABLET PO SCH (21:00)
[2017-11-29] MEDS ORDERED: MONTELUKAST 10 MG TABLET PO SCH (21:00)
[2017-11-29] MEDS: POTASSIUM CHLORIDE 10 MEQ TABLET PO SCH (22:09)
[2017-11-29] MEDS: THEOPHYLLINE ER (24 HR) 400 MG TABLET PO SCH (22:09)
[2017-11-29] MEDS: DOCUSATE SODIUM 100 MG CAPSULE PO SCH (22:09)
[2017-11-29] MEDS: DILTIAZEM CD 180 MG CAPSULE PO SCH (22:10)
[2017-11-29] MEDS: SILDENAFIL 20 MG TABLET PO SCH (23:16)
[2017-11-30] MEDS: ALBUTEROL/IPRATROPIUM 3 ML NEB RESP TX SCH ×2 (01:41→07:45)
[2017-11-30] MEDS: metroNIDAZOLE INJ 500 MG in PREMIX 1 EACH IV SCH ×2 (02:05)
[2017-11-30 04:49] LABS: Basophils # 0.1 10*3/uL (0.0-0.2); Basophils % 0.9 % (0.0-0.8); Eosinophils # 0.1 10*3/uL (0.0-0.87); Eosinophils % 1.4 % (0.00-10.9); Hematocrit 34.9 VOL% (35.7-47.0); Hemoglobin 11.7 GM/DL (12.0-16.0); Immature Granulocytes % 1.3 %; Lymphocytes # 2.5 10*3/uL (1.4-4.0); Lymphocytes % 31.4 % (21.3-54.2); Mean Corpuscular HGB Conc 33.5 GM/DL (32-36); Mean Corpuscular Hemoglobin 29 PG (27-34); Mean Corpuscular Volume 86.2 FL (87-102); Mean Platelet Volume 10.3 FL (9.6-12.0); Monocytes # 0.9 10*3/uL (0.11-0.8); Monocytes % 11.6 % (1.7-12.7); Neutrophils # 4.2 10*3/uL (1.4-7.4); Neutrophils % 53.4 % (38.7-73.9); Platelet Count 254 T/CUMM (130-400); Red Blood Count 4.05 MC/CUMM (3.8-5.5); Red Cell Distribution Width 15.9 % (9.3-17.3); White Blood Count 7.9 T/CUMM (4-12)
[2017-11-30 05:16] LABS: Calcium 8.6 MG/DL (8.5-10.1); Osmolality,Calculated 269.1 MOS/KG (273-304)
[2017-11-30 05:19] LABS: Potassium 2.5 MMOL/L (3.5-5.1)
[2017-11-30] MEDS ORDERED: CHOLECALCIFEROL 5,000 UNIT TABLET PO SCH (09:00)
[2017-11-30] MEDS ORDERED: FUROSEMIDE 40 MG TABLET PO SCH (09:00)
[2017-11-30] MEDS ORDERED: predniSONE 5 MG TABLET PO SCH (09:00)
[2017-11-30] MEDS ORDERED: ASPIRIN EC 81 MG TABLET PO SCH (09:00)
[2017-11-30] MEDS ORDERED: PANTOPRAZOLE 40 MG TABLET PO SCH (09:00)
[2017-11-30] MEDS ORDERED: MAGNESIUM GLUCONATE 500 MG TABLET PO SCH (09:00)
[2017-11-30] MEDS ORDERED: AMIODARONE 200 MG TABLET PO SCH (09:00)
[2017-11-30] MEDS ORDERED: metOLazone 5 MG TABLET PO SCH (09:00)
[2017-11-30] MEDS: THEOPHYLLINE ER (24 HR) 400 MG TABLET PO SCH (10:41)
[2017-11-30] MEDS: DILTIAZEM CD 180 MG CAPSULE PO SCH (10:42)
[2017-11-30] MEDS: SILDENAFIL 20 MG TABLET PO SCH (10:42)
[2017-11-30] MEDS: DOCUSATE SODIUM 100 MG CAPSULE PO SCH (10:42)
[2017-11-30] MEDS: POTASSIUM CHLORIDE 10 MEQ TABLET PO SCH (10:44)
[2017-11-30 12:04] VITALS: BP 113/60
[2017-11-30] MEDS ORDERED: DIGOXIN 0.125 MG TABLET PO SCH (13:00)
== END 2017-11-30 12:40 | disposition home or self-care (01) ==
LOC: N.ED 09:39 → N.EDINP 09:39 → N.3E 17:26
PROVIDERS: ADMIT Family Medicine; ATTEND Family Medicine

== ENCOUNTER 2018-04-01 08:27 | Inpatient (IN) ==
[2018-04-01] MEDS ORDERED: MORPHINE 4 MG/1 ML VIAL IV PRN (08:55)
[2018-04-01] MEDS ORDERED: ONDANSETRON 4 MG/2 ML VIAL IV PRN ×2 (08:55→14:15)
[2018-04-01] MEDS ORDERED: ASPIRIN 325 MG TABLET PO STA (08:55)
[2018-04-01] MEDS ORDERED: KETOROLAC 30 MG/1 ML VIAL IV STA (09:03)
[2018-04-01 09:17] LABS: INR 1.2; PT Patient Result 12.5 SECS
[2018-04-01 09:52] LABS: Partial Thromboplastin Time 68.6 SECS (0-40)
[2018-04-01 09:58] LABS: Albumin 3.9 G/DL (3.4-5.0); Bilirubin,Total 0.8 MG/DL (0.2-1.0); Calcium 8.9 MG/DL (8.5-10.1); Potassium 2.9 MMOL/L (3.5-5.1); Total Protein 7.3 G/DL (6.4-8.3)
[2018-04-01 10:20] LABS: Barbiturates Screen,Urine Negative (Negative); Benzodiazepines Screen,Urine Negative (Negative); Cannabinoid Screen,Urine Negative (Negative); Opiate Screen,Urine Positive (Negative); Phencyclidine Screen,Urine Negative (Negative)
[2018-04-01 10:22] LABS: Theophylline < 2.0 UG/ML (10-20)
[2018-04-01] MEDS ORDERED: POTASSIUM CHLORIDE 20 MEQ TABLET PO STA (11:40)
[2018-04-01 12:10] LABS: Basophils # 0.1 10*3/uL (0.0-0.2); Basophils % 0.4 % (0.0-0.8); Eosinophils # 0.2 10*3/uL (0.0-0.87); Eosinophils % 1.2 % (0.00-10.9); Hematocrit 39.5 VOL% (35.7-47.0); Hemoglobin 12.5 GM/DL (12.0-16.0); Immature Granulocytes % 0.6 %; Immature Granulocytes Absolute 0.09 #; Lymphocytes # 1.5 10*3/uL (1.4-4.0); Lymphocytes % 10.3 % (21.3-54.2); Mean Corpuscular HGB Conc 31.6 GM/DL (32-36); Mean Corpuscular Hemoglobin 27 PG (27-34); Mean Corpuscular Volume 85.3 FL (87-102); Mean Platelet Volume 12.1 FL (9.6-12.0); Monocytes # 1.4 10*3/uL (0.11-0.8); Monocytes % 9.9 % (1.7-12.7); Neutrophils # 11.1 10*3/uL (1.4-7.4); Neutrophils % 77.6 % (38.7-73.9); Platelet Count 224 T/CUMM (130-400); Red Blood Count 4.63 MC/CUMM (3.8-5.5); Red Cell Distribution Width 15.1 % (9.3-17.3); White Blood Count 14.3 T/CUMM (4-12)
[2018-04-01] MEDS ORDERED: ACETAMINOPHEN 325 MG TABLET PO PRN (14:15)
[2018-04-01] MEDS ORDERED: GLUCAGON 1 MG VIAL IM PRN (14:15)
[2018-04-01] MEDS ORDERED: DEXTROSE 50% 25 GM/50 ML VIAL IV PRN (14:15)
[2018-04-01] MEDS ORDERED: FAMOTIDINE 20 MG TABLET PO PRN (16:03)
[2018-04-01] MEDS ORDERED: COLCHICINE 0.6 MG TABLET PO PRN (16:03)
[2018-04-01] MEDS ORDERED: ALBUTEROL 2.5 MG/3 ML NEB RESP TX PRN (16:03)
[2018-04-01] MEDS ORDERED: PROMETHAZINE 25 MG TABLET PO PRN (16:03)
[2018-04-01] MEDS ORDERED: NITROGLYCERIN SL 0.4 MG TABLET SL PRN (16:03)
[2018-04-01] MEDS ORDERED: ONDANSETRON 4 MG TABLET PO PRN (16:03)
[2018-04-01] MEDS ORDERED: POLYETHYLENE GLYCOL POWDER 17 GM PACK PO PRN (16:03)
[2018-04-01] MEDS ORDERED: ALLOPURINOL 100 MG TABLET PO PRN (16:03)
[2018-04-01] MEDS: INSULIN LISPRO 100 UNIT/ML SUBCUT SCH ×2 (17:06→22:28)
[2018-04-01] MEDS: CYCLOBENZAPRINE 10 MG TABLET PO PRN (17:37)
[2018-04-01] MEDS: SODIUM CHLORIDE 0.9% 1,000 ML IV SCH (17:52)
[2018-04-01] MEDS: ALBUTEROL/IPRATROPIUM 3 ML NEB RESP TX SCH (19:10)
[2018-04-01] MEDS ORDERED: DOCUSATE SODIUM 100 MG CAPSULE PO SCH (21:00)
[2018-04-01] MEDS: traZODone 50 MG TABLET PO SCH (21:32)
[2018-04-01] MEDS: MONTELUKAST 10 MG TABLET PO SCH (21:32)
[2018-04-01] MEDS: PRAVASTATIN 40 MG TABLET PO SCH (21:32)
[2018-04-01] MEDS: DILTIAZEM CD 180 MG CAPSULE PO SCH (21:33)
[2018-04-01] MEDS: SILDENAFIL 20 MG TABLET PO SCH (21:34)
[2018-04-01] MEDS: APIXABAN 5 MG TABLET PO SCH (21:34)
[2018-04-01] MEDS: POTASSIUM CHLORIDE 20 MEQ TABLET PO SCH (21:34)
[2018-04-02] MEDS: POTASSIUM CHLORIDE 20 MEQ TABLET PO PRN ×2 (00:24→05:41)
[2018-04-02] MEDS: ALBUTEROL/IPRATROPIUM 3 ML NEB RESP TX SCH ×5 (00:33→19:32)
[2018-04-02] MEDS: KETOROLAC 30 MG/1 ML VIAL IV PRN ×3 (03:03→21:52)
[2018-04-02 05:12] LABS: Basophils % 0.3 % (0.0-0.8); Eosinophils # 0.1 10*3/uL (0.0-0.87); Eosinophils % 0.4 % (0.00-10.9); Hematocrit 33.3 VOL% (35.7-47.0); Hemoglobin 10.6 GM/DL (12.0-16.0); Immature Granulocytes % 0.5 %; Immature Granulocytes Absolute 0.07 #; Lymphocytes # 1.3 10*3/uL (1.4-4.0); Lymphocytes % 9.5 % (21.3-54.2); Mean Corpuscular HGB Conc 31.8 GM/DL (32-36); Mean Corpuscular Hemoglobin 27 PG (27-34); Mean Corpuscular Volume 83.9 FL (87-102); Mean Platelet Volume 11.2 FL (9.6-12.0); Monocytes # 1.7 10*3/uL (0.11-0.8); Monocytes % 12.6 % (1.7-12.7); Neutrophils # 10.2 10*3/uL (1.4-7.4); Neutrophils % 76.7 % (38.7-73.9); Platelet Count 178 T/CUMM (130-400); Red Blood Count 3.97 MC/CUMM (3.8-5.5); Red Cell Distribution Width 15.1 % (9.3-17.3); White Blood Count 13.4 T/CUMM (4-12)
[2018-04-02 05:34] LABS: Calcium 7.9 MG/DL (8.5-10.1); Osmolality,Calculated 274.8 MOS/KG (273-304); Potassium 3.5 MMOL/L (3.5-5.1); Thyroid Stimulating Hormone 0.422 uIU/ml (0.358-3.74)
[2018-04-02] MEDS: CHOLECALCIFEROL 1,000 UNIT TABLET PO SCH (08:57)
[2018-04-02] MEDS: PANTOPRAZOLE 40 MG TABLET PO SCH (08:57)
[2018-04-02] MEDS: AMIODARONE 200 MG TABLET PO SCH (08:57)
[2018-04-02] MEDS: SILDENAFIL 20 MG TABLET PO SCH ×3 (08:58→21:53)
[2018-04-02] MEDS: CYCLOBENZAPRINE 10 MG TABLET PO PRN (08:58)
[2018-04-02] MEDS: POTASSIUM CHLORIDE 20 MEQ TABLET PO SCH ×2 (08:58→21:52)
[2018-04-02] MEDS: MAGNESIUM OXIDE 400 MG TABLET PO SCH (08:58)
[2018-04-02] MEDS: INSULIN LISPRO 100 UNIT/ML SUBCUT SCH ×4 (08:59→22:02)
[2018-04-02] MEDS: APIXABAN 5 MG TABLET PO SCH ×2 (08:59→21:53)
[2018-04-02] MEDS: predniSONE 5 MG TABLET PO SCH (08:59)
[2018-04-02] MEDS: ASPIRIN EC 81 MG TABLET PO SCH (08:59)
[2018-04-02 11:33] LABS: ABG Base Excess 2.6 MMOL/L (-2.5-2.5); ABG HCO3 26.2 MMOL/L (20-26); ABG Oxygen Saturation 68.9 % (95-100); ABG PCO2 42.1 MM HG (35-48); ABG TCO2 24.6 MMOL/L (23-27)
[2018-04-02] MEDS: DILTIAZEM CD 180 MG CAPSULE PO SCH ×2 (11:33→22:02)
[2018-04-02 11:43] LABS: ABG PO2 40.1 MM HG (80-95)
[2018-04-02] MEDS: BENZONATATE 100 MG CAPSULE PO SCH ×3 (12:14→21:52)
[2018-04-02] MEDS: FUROSEMIDE 40 MG TABLET PO SCH (12:14)
[2018-04-02] MEDS: DIGOXIN 0.125 MG TABLET PO SCH (12:18)
[2018-04-02 15:07] LABS: ABG Base Excess 2.3 MMOL/L (-2.5-2.5); ABG HCO3 26.1 MMOL/L (20-26); ABG Oxygen Saturation 81.6 % (95-100); ABG PCO2 38.1 MM HG (35-48); ABG PH 7.447 (7.35-7.45); ABG PO2 48.6 MM HG (80-95); ABG TCO2 23.8 MMOL/L (23-27)
[2018-04-02] MEDS: SODIUM CHLORIDE 0.9% 1,000 ML IV SCH (15:42)
[2018-04-02] MEDS: PRAVASTATIN 40 MG TABLET PO SCH (21:52)
[2018-04-02] MEDS: MONTELUKAST 10 MG TABLET PO SCH (21:53)
[2018-04-02] MEDS: traZODone 50 MG TABLET PO SCH (21:53)
[2018-04-03] MEDS: ALBUTEROL/IPRATROPIUM 3 ML NEB RESP TX SCH ×4 (00:41→19:15)
[2018-04-03] MEDS: INSULIN LISPRO 100 UNIT/ML SUBCUT SCH ×4 (07:51→21:50)
[2018-04-03] MEDS ORDERED: metOLazone 5 MG TABLET PO SCH (09:00)
[2018-04-03] MEDS: PANTOPRAZOLE 40 MG TABLET PO SCH (09:37)
[2018-04-03] MEDS: predniSONE 5 MG TABLET PO SCH (09:38)
[2018-04-03] MEDS: AMIODARONE 200 MG TABLET PO SCH (09:38)
[2018-04-03] MEDS: APIXABAN 5 MG TABLET PO SCH ×2 (09:38→21:32)
[2018-04-03] MEDS: SILDENAFIL 20 MG TABLET PO SCH ×3 (09:38→21:31)
[2018-04-03] MEDS: FUROSEMIDE 40 MG TABLET PO SCH (09:38)
[2018-04-03] MEDS: CHOLECALCIFEROL 1,000 UNIT TABLET PO SCH (09:38)
[2018-04-03] MEDS: ASPIRIN EC 81 MG TABLET PO SCH (09:38)
[2018-04-03] MEDS: BENZONATATE 100 MG CAPSULE PO SCH ×3 (09:38→21:31)
[2018-04-03] MEDS: DILTIAZEM CD 180 MG CAPSULE PO SCH ×2 (09:38→21:32)
[2018-04-03] MEDS: MAGNESIUM OXIDE 400 MG TABLET PO SCH (09:38)
[2018-04-03] MEDS: POTASSIUM CHLORIDE 20 MEQ TABLET PO SCH ×2 (09:39→21:32)
[2018-04-03] MEDS: POTASSIUM CHLORIDE 20 MEQ TABLET PO PRN (09:39)
[2018-04-03] MEDS: CYCLOBENZAPRINE 10 MG TABLET PO PRN (09:45)
[2018-04-03] MEDS: KETOROLAC 30 MG/1 ML VIAL IV PRN ×2 (09:45→21:30)
[2018-04-03 10:07] LABS: Basophils % 0.2 % (0.0-0.8); Eosinophils # 0.2 10*3/uL (0.0-0.87); Eosinophils % 1.7 % (0.00-10.9); Immature Granulocytes % 0.5 %; Immature Granulocytes Absolute 0.06 #; Lymphocytes # 0.8 10*3/uL (1.4-4.0); Lymphocytes % 7.5 % (21.3-54.2); Mean Corpuscular HGB Conc 32.3 GM/DL (32-36); Mean Corpuscular Hemoglobin 27 PG (27-34); Mean Corpuscular Volume 84.5 FL (87-102); Mean Platelet Volume 11.1 FL (9.6-12.0); Monocytes # 1.1 10*3/uL (0.11-0.8); Monocytes % 9.5 % (1.7-12.7); Neutrophils # 8.9 10*3/uL (1.4-7.4); Neutrophils % 80.6 % (38.7-73.9); Platelet Count 162 T/CUMM (130-400); Red Blood Count 3.67 MC/CUMM (3.8-5.5); Red Cell Distribution Width 15.2 % (9.3-17.3)
[2018-04-03 10:41] LABS: Calcium 8.2 MG/DL (8.5-10.1); Osmolality,Calculated 276.8 MOS/KG (273-304); Potassium 3.9 MMOL/L (3.5-5.1)
[2018-04-03] MEDS: SODIUM CHLORIDE 0.9% 1,000 ML IV SCH (11:57)
[2018-04-03] MEDS: DIGOXIN 0.125 MG TABLET PO SCH (14:06)
[2018-04-03] MEDS ORDERED: POLYETHYLENE GLYCOL POWDER 17 GM PACK PO PRN (16:13)
[2018-04-03] MEDS: PRAVASTATIN 40 MG TABLET PO SCH (21:32)
[2018-04-03] MEDS: traZODone 50 MG TABLET PO SCH (21:32)
[2018-04-03] MEDS: MONTELUKAST 10 MG TABLET PO SCH (21:50)
[2018-04-04] MEDS: ALBUTEROL/IPRATROPIUM 3 ML NEB RESP TX SCH ×2 (00:02→06:54)
[2018-04-04 04:44] LABS: Basophils # 0.1 10*3/uL (0.0-0.2); Basophils % 0.4 % (0.0-0.8); Eosinophils # 0.2 10*3/uL (0.0-0.87); Eosinophils % 1.8 % (0.00-10.9); Hematocrit 30.2 VOL% (35.7-47.0); Hemoglobin 9.5 GM/DL (12.0-16.0); Immature Granulocytes % 0.7 %; Immature Granulocytes Absolute 0.08 #; Lymphocytes # 1.1 10*3/uL (1.4-4.0); Lymphocytes % 8.9 % (21.3-54.2); Mean Corpuscular HGB Conc 31.5 GM/DL (32-36); Mean Corpuscular Hemoglobin 27 PG (27-34); Mean Corpuscular Volume 84.1 FL (87-102); Mean Platelet Volume 11.2 FL (9.6-12.0); Monocytes # 1.2 10*3/uL (0.11-0.8); Monocytes % 9.9 % (1.7-12.7); Neutrophils # 9.6 10*3/uL (1.4-7.4); Neutrophils % 78.3 % (38.7-73.9); Platelet Count 181 T/CUMM (130-400); Red Blood Count 3.59 MC/CUMM (3.8-5.5); Red Cell Distribution Width 15.2 % (9.3-17.3); White Blood Count 12.3 T/CUMM (4-12)
[2018-04-04 05:06] LABS: Calcium 8.4 MG/DL (8.5-10.1); Potassium 4.4 MMOL/L (3.5-5.1)
[2018-04-04] MEDS ORDERED: DILTIAZEM CD 120 MG CAPSULE PO SCH (07:58)
[2018-04-04] MEDS: INSULIN LISPRO 100 UNIT/ML SUBCUT SCH (08:08)
[2018-04-04 08:23] VITALS: BP 91/61
[2018-04-04] MEDS: KETOROLAC 30 MG/1 ML VIAL IV PRN (09:41)
[2018-04-04] MEDS: BENZONATATE 100 MG CAPSULE PO SCH (09:42)
[2018-04-04] MEDS: FUROSEMIDE 40 MG TABLET PO SCH (09:42)
[2018-04-04] MEDS: PANTOPRAZOLE 40 MG TABLET PO SCH (09:42)
[2018-04-04] MEDS: AMIODARONE 200 MG TABLET PO SCH (09:42)
[2018-04-04] MEDS: MAGNESIUM OXIDE 400 MG TABLET PO SCH (09:43)
[2018-04-04] MEDS: SILDENAFIL 20 MG TABLET PO SCH (09:43)
[2018-04-04] MEDS: predniSONE 5 MG TABLET PO SCH (09:43)
[2018-04-04] MEDS: CHOLECALCIFEROL 1,000 UNIT TABLET PO SCH (09:43)
[2018-04-04] MEDS: POTASSIUM CHLORIDE 20 MEQ TABLET PO SCH (09:43)
[2018-04-04] MEDS: ASPIRIN EC 81 MG TABLET PO SCH (09:43)
[2018-04-04] MEDS: APIXABAN 5 MG TABLET PO SCH (09:43)
[2018-04-04] MEDS: CYCLOBENZAPRINE 10 MG TABLET PO PRN (09:48)
== END 2018-04-04 11:26 | disposition home health service (06) | DRG 206 ==
LOC: N.EDINP 08:27 → N.ED 08:27 → N.TELES 15:15
PROVIDERS: ADMIT Family Medicine; ATTEND Family Medicine

== ENCOUNTER 2018-08-04 13:31 | Inpatient (IN) ==
[2018-08-04 14:17] LABS: Basophils # 0.1 10*3/uL (0.0-0.2); Basophils % 1.2 % (0.0-0.8); Eosinophils # 0.9 10*3/uL (0.0-0.87); Eosinophils % 15.6 % (0.00-10.9); Hematocrit 31.5 VOL% (35.7-47.0); Hemoglobin 9.8 GM/DL (12.0-16.0); Immature Granulocytes % 0.5 %; Immature Granulocytes Absolute 0.03 #; Lymphocytes # 1.4 10*3/uL (1.4-4.0); Lymphocytes % 23.1 % (21.3-54.2); Mean Corpuscular HGB Conc 31.1 GM/DL (32-36); Mean Corpuscular Hemoglobin 27 PG (27-34); Mean Corpuscular Volume 85.4 FL (87-102); Mean Platelet Volume 10.8 FL (9.6-12.0); Monocytes # 0.5 10*3/uL (0.11-0.8); Monocytes % 7.5 % (1.7-12.7); Neutrophils # 3.2 10*3/uL (1.4-7.4); Neutrophils % 52.1 % (38.7-73.9); Platelet Count 228 T/CUMM (130-400); Red Blood Count 3.69 MC/CUMM (3.8-5.5); Red Cell Distribution Width 17.7 % (9.3-17.3)
[2018-08-04 14:43] LABS: Albumin 3.7 G/DL (3.4-5.0); Bilirubin,Total 0.5 MG/DL (0.2-1.0); Calcium 9.3 MG/DL (8.5-10.1); Osmolality,Calculated 263.9 MOS/KG (273-304)
[2018-08-04 15:25] LABS: Band Neutrophils 1 % (0-10); Eosinophils 10 % (0-10); Hypochromasia 2+; Lymphocytes 16 % (20-55); Ovalocytes Few; Poikilocytosis 1+; Schistocytes Few; Segmented Neutrophils 61 % (50-85); Sickle Cells Few; Total Cells Counted 100
[2018-08-04 15:26] LABS: Platelet Estimate Normal
[2018-08-04 15:41] LABS: Apearance,Urine CLEAR (Clear); Bilirubin,Urine Negative (Negative); Blood, Urine Negative (Negative); Glucose,Urine (UA) Negative (Negative); Hyaline Casts,Urine 15 /LPF (0-3); Ketones,Urine Negative (Negative); Nitrite,Urine Negative (Negative); Protein,Urine Negative; RBC,Urine 2 /HPF (0-4); Squamous Epithelial Cell,Urine Occasional /HPF (0-10); Urine Color Straw (Yellow); Urine Specific Gravity 1.004 (1.001-1.035); Urine Urobilinogen < 2.0 EU/DL (0.2-1.0); WBC,Urine <1 /HPF (0-6)
[2018-08-04] MEDS ORDERED: SODIUM CHLORIDE 0.9% 500 ML IV STA (17:27)
[2018-08-04] MEDS ORDERED: ONDANSETRON 4 MG/2 ML VIAL IV PRN (18:47)
[2018-08-04] MEDS ORDERED: DOCUSATE SODIUM 100 MG CAPSULE PO SCH (21:00)
[2018-08-04] MEDS: ACETAMINOPHEN 325 MG TABLET PO PRN (22:00)
[2018-08-05 05:18] LABS: Basophils # 0.1 10*3/uL (0.0-0.2); Basophils % 1.5 % (0.0-0.8); Eosinophils # 1.1 10*3/uL (0.0-0.87); Eosinophils % 17.6 % (0.00-10.9); Hematocrit 25.7 VOL% (35.7-47.0); Immature Granulocytes % 0.5 %; Immature Granulocytes Absolute 0.03 #; Lymphocytes # 1.5 10*3/uL (1.4-4.0); Lymphocytes % 25.1 % (21.3-54.2); Mean Corpuscular HGB Conc 31.1 GM/DL (32-36); Mean Corpuscular Hemoglobin 27 PG (27-34); Mean Corpuscular Volume 85.1 FL (87-102); Mean Platelet Volume 10.7 FL (9.6-12.0); Monocytes # 0.6 10*3/uL (0.11-0.8); Monocytes % 9.8 % (1.7-12.7); Neutrophils # 2.7 10*3/uL (1.4-7.4); Neutrophils % 45.5 % (38.7-73.9); Platelet Count 204 T/CUMM (130-400); Red Blood Count 3.02 MC/CUMM (3.8-5.5); Red Cell Distribution Width 17.6 % (9.3-17.3)
[2018-08-05 05:40] LABS: Bilirubin,Total 0.5 MG/DL (0.2-1.0); Calcium 8.5 MG/DL (8.5-10.1); Osmolality,Calculated 268.5 MOS/KG (273-304); Potassium 3.3 MMOL/L (3.5-5.1); Total Protein 5.7 G/DL (6.4-8.3)
[2018-08-05 05:42] LABS: Eosinophils 18 % (0-10); Hypochromasia 1+; Lymphocytes 20 % (20-55); Ovalocytes Slight; Platelet Estimate Adequate; Segmented Neutrophils 50 % (50-85); Total Cells Counted 100
[2018-08-05] MEDS: ACETAMINOPHEN 325 MG TABLET PO PRN (05:44)
[2018-08-05] MEDS: PANTOPRAZOLE 40 MG TABLET PO SCH ×2 (08:39→20:19)
[2018-08-05] MEDS: LINACLOTIDE 145 MCG CAPSULE PO SCH (08:41)
[2018-08-05] MEDS ORDERED: PANTOPRAZOLE 40 MG VIAL IV SCH (09:00)
[2018-08-05] MEDS ORDERED: PANTOPRAZOLE 40 MG TABLET PO SCH (09:00)
[2018-08-05] MEDS ORDERED: ALBUTEROL/IPRATROPIUM 3 ML NEB RESP TX PRN (09:58)
[2018-08-05 10:40] LABS: Free T4 (Free Thyroxine) 1.69 NG/DL (0.76-1.46); Thyroid Stimulating Hormone 2.32 uIU/ml (0.358-3.74)
[2018-08-05] MEDS ORDERED: POTASSIUM CHLORIDE 20 MEQ TABLET PO ONE (10:48)
[2018-08-05 11:00] LABS: % Iron Saturation 8.1 % (18-50)
[2018-08-05] MEDS ORDERED: SODIUM CHLORIDE 0.45% 1,000 ML IV SCH ×2 (11:00)
[2018-08-05 11:43] LABS: Folate 10.2 NG/ML (5.4-24.0)
[2018-08-05] MEDS: ALBUTEROL/IPRATROPIUM 3 ML NEB RESP TX SCH ×2 (12:36→19:41)
[2018-08-05] MEDS: AMBRISENTAN 10 MG PO SCH (12:50)
[2018-08-05] MEDS ORDERED: traMADol 50 MG TABLET PO PRN (14:30)
[2018-08-05] MEDS ORDERED: NITROGLYCERIN SL 0.4 MG TABLET SL PRN (14:30)
[2018-08-05] MEDS ORDERED: PROMETHAZINE 25 MG TABLET PO PRN (14:30)
[2018-08-05 15:27] LABS: Hemoglobin 8.3 GM/DL (12.0-16.0)
[2018-08-05] MEDS: SILDENAFIL 20 MG TABLET PO SCH ×2 (15:27→20:59)
[2018-08-05] MEDS: diphenhydrAMINE 25 MG/10 ML UDCUP PO PRN (18:15)
[2018-08-05] MEDS: POTASSIUM CHLORIDE 20 MEQ TABLET PO SCH (21:01)
[2018-08-06] MEDS: ALBUTEROL/IPRATROPIUM 3 ML NEB RESP TX SCH ×4 (01:26→19:49)
[2018-08-06] MEDS: diphenhydrAMINE 25 MG/10 ML UDCUP PO PRN (02:32)
[2018-08-06 06:19] LABS: Basophils # 0.1 10*3/uL (0.0-0.2); Basophils % 1.2 % (0.0-0.8); Eosinophils # 1.1 10*3/uL (0.0-0.87); Eosinophils % 17.8 % (0.00-10.9); Hematocrit 25.7 VOL% (35.7-47.0); Hemoglobin 7.9 GM/DL (12.0-16.0); Immature Granulocytes % 0.3 %; Immature Granulocytes Absolute 0.02 #; Lymphocytes # 1.7 10*3/uL (1.4-4.0); Lymphocytes % 28.5 % (21.3-54.2); Mean Corpuscular HGB Conc 30.7 GM/DL (32-36); Mean Corpuscular Hemoglobin 27 PG (27-34); Mean Corpuscular Volume 86.2 FL (87-102); Mean Platelet Volume 11.5 FL (9.6-12.0); Monocytes # 0.5 10*3/uL (0.11-0.8); Neutrophils # 2.6 10*3/uL (1.4-7.4); Neutrophils % 43.2 % (38.7-73.9); Platelet Count 205 T/CUMM (130-400); Red Blood Count 2.98 MC/CUMM (3.8-5.5); Red Cell Distribution Width 17.6 % (9.3-17.3); White Blood Count 5.9 T/CUMM (4-12)
[2018-08-06 06:58] LABS: Eosinophils 19 % (0-10); Lymphocytes 34 % (20-55); Platelet Estimate Normal; Poikilocytosis 1+; Segmented Neutrophils 40 % (50-85); Total Cells Counted 100
[2018-08-06 06:59] LABS: Anisocytosis 2+
[2018-08-06 07:00] LABS: Osmolality,Calculated 265.5 MOS/KG (273-304); Potassium 3.2 MMOL/L (3.5-5.1)
[2018-08-06] MEDS: PANTOPRAZOLE 40 MG TABLET PO SCH ×2 (07:12→20:42)
[2018-08-06] MEDS: predniSONE 5 MG TABLET PO SCH (08:58)
[2018-08-06] MEDS: POTASSIUM CHLORIDE 20 MEQ TABLET PO SCH ×2 (08:58→20:42)
[2018-08-06] MEDS: MAGNESIUM OXIDE 400 MG TABLET PO SCH (08:58)
[2018-08-06] MEDS: SILDENAFIL 20 MG TABLET PO SCH ×3 (08:58→20:42)
[2018-08-06] MEDS: LINACLOTIDE 145 MCG CAPSULE PO SCH (08:58)
[2018-08-06] MEDS: COLCHICINE 0.6 MG CAPSULE PO SCH (08:58)
[2018-08-06] MEDS ORDERED: SODIUM CHLORIDE 0.9% 1,000 ML IV PRN (09:21)
[2018-08-06] MEDS: FERROUS SULFATE 325 MG TABLET PO SCH ×2 (10:32→20:42)
[2018-08-06] MEDS: ACETAMINOPHEN 325 MG TABLET PO PRN (17:51)
[2018-08-06 18:39] LABS: Hematocrit 31.1 VOL% (35.7-47.0); Hemoglobin 9.8 GM/DL (12.0-16.0)
[2018-08-07] MEDS: ALBUTEROL/IPRATROPIUM 3 ML NEB RESP TX SCH ×4 (01:03→20:23)
[2018-08-07 06:07] LABS: Basophils # 0.1 10*3/uL (0.0-0.2); Basophils % 0.9 % (0.0-0.8); Hematocrit 27.7 VOL% (35.7-47.0); Hemoglobin 8.6 GM/DL (12.0-16.0); Immature Granulocytes % 0.2 %; Immature Granulocytes Absolute 0.01 #; Lymphocytes # 1.2 10*3/uL (1.4-4.0); Lymphocytes % 18.8 % (21.3-54.2); Mean Corpuscular Hemoglobin 27 PG (27-34); Mean Corpuscular Volume 85.8 FL (87-102); Mean Platelet Volume 11.5 FL (9.6-12.0); Monocytes # 0.6 10*3/uL (0.11-0.8); Monocytes % 9.3 % (1.7-12.7); Neutrophils # 3.6 10*3/uL (1.4-7.4); Neutrophils % 55.8 % (38.7-73.9); Platelet Count 206 T/CUMM (130-400); Red Blood Count 3.23 MC/CUMM (3.8-5.5); Red Cell Distribution Width 17.3 % (9.3-17.3); White Blood Count 6.5 T/CUMM (4-12)
[2018-08-07] MEDS: PANTOPRAZOLE 40 MG TABLET PO SCH ×2 (06:10→20:38)
[2018-08-07 06:24] LABS: Calcium 8.3 MG/DL (8.5-10.1); Potassium 3.5 MMOL/L (3.5-5.1)
[2018-08-07 06:45] LABS: Band Neutrophils 1 % (0-10); Eosinophils 14 % (0-10); Hypochromasia 1+; Lymphocytes 22 % (20-55); Nucleated Red Blood Cells 1 (0-5); Ovalocytes Slight; Platelet Estimate Adequate; Segmented Neutrophils 58 % (50-85); Total Cells Counted 100
[2018-08-07] MEDS ORDERED: SODIUM CHLORIDE 0.9% 1,000 ML IV PRN (08:34)
[2018-08-07] MEDS: COLCHICINE 0.6 MG CAPSULE PO SCH (09:07)
[2018-08-07] MEDS: MAGNESIUM OXIDE 400 MG TABLET PO SCH (09:07)
[2018-08-07] MEDS: predniSONE 5 MG TABLET PO SCH (09:09)
[2018-08-07] MEDS: FERROUS SULFATE 325 MG TABLET PO SCH ×2 (09:09→20:38)
[2018-08-07] MEDS: SILDENAFIL 20 MG TABLET PO SCH ×2 (09:09→15:10)
[2018-08-07] MEDS: POTASSIUM CHLORIDE 20 MEQ TABLET PO SCH ×2 (09:10→20:38)
[2018-08-07] MEDS: LINACLOTIDE 145 MCG CAPSULE PO SCH (09:14)
[2018-08-07] MEDS: ACETAMINOPHEN 325 MG TABLET PO PRN (09:23)
[2018-08-07 16:02] LABS: Hematocrit 32.4 VOL% (35.7-47.0); Hemoglobin 10.3 GM/DL (12.0-16.0)
[2018-08-08] MEDS: ALBUTEROL/IPRATROPIUM 3 ML NEB RESP TX SCH ×2 (00:22→07:40)
[2018-08-08] MEDS: ACETAMINOPHEN 325 MG TABLET PO PRN (05:23)
[2018-08-08 05:52] LABS: Basophils # 0.1 10*3/uL (0.0-0.2); Basophils % 1.1 % (0.0-0.8); Eosinophils # 1.3 10*3/uL (0.0-0.87); Eosinophils % 16.8 % (0.00-10.9); Hematocrit 31.3 VOL% (35.7-47.0); Hemoglobin 9.8 GM/DL (12.0-16.0); Immature Granulocytes % 0.8 %; Immature Granulocytes Absolute 0.06 #; Lymphocytes # 1.5 10*3/uL (1.4-4.0); Mean Corpuscular HGB Conc 31.3 GM/DL (32-36); Mean Corpuscular Hemoglobin 27 PG (27-34); Mean Platelet Volume 10.7 FL (9.6-12.0); Monocytes # 0.7 10*3/uL (0.11-0.8); Monocytes % 9.2 % (1.7-12.7); Neutrophils # 4.2 10*3/uL (1.4-7.4); Neutrophils % 53.1 % (38.7-73.9); Platelet Count 191 T/CUMM (130-400); Red Blood Count 3.64 MC/CUMM (3.8-5.5); Red Cell Distribution Width 17.2 % (9.3-17.3); White Blood Count 7.9 T/CUMM (4-12)
[2018-08-08 06:10] LABS: Calcium 8.8 MG/DL (8.5-10.1); Osmolality,Calculated 270.8 MOS/KG (273-304); Potassium 3.9 MMOL/L (3.5-5.1)
[2018-08-08 06:27] LABS: Eosinophils 13 % (0-10); Lymphocytes 27 % (20-55); Segmented Neutrophils 55 % (50-85); Total Cells Counted 100
[2018-08-08 06:28] LABS: Hypochromasia 1+; Ovalocytes Slight; Platelet Estimate Adequate
[2018-08-08] MEDS: LINACLOTIDE 145 MCG CAPSULE PO SCH (10:26)
[2018-08-08] MEDS: PANTOPRAZOLE 40 MG TABLET PO SCH (10:26)
[2018-08-08] MEDS: FERROUS SULFATE 325 MG TABLET PO SCH (10:27)
[2018-08-08] MEDS: POTASSIUM CHLORIDE 20 MEQ TABLET PO SCH (10:27)
[2018-08-08] MEDS: AMBRISENTAN 10 MG PO SCH (10:27)
[2018-08-08] MEDS: COLCHICINE 0.6 MG CAPSULE PO SCH (10:27)
[2018-08-08] MEDS: MAGNESIUM OXIDE 400 MG TABLET PO SCH (10:28)
[2018-08-08] MEDS: predniSONE 5 MG TABLET PO SCH (10:28)
[2018-08-08] MEDS ORDERED: ASPIRIN EC 81 MG TABLET PO SCH (12:00)
[2018-08-08 12:38] VITALS: BP 121/80
== END 2018-08-08 15:03 | disposition home health service (06) | DRG 291 ==
LOC: N.ED 13:31 → N.EDINP 18:47 → N.ICU 20:18 → N.TELEN 08-07 16:18
PROVIDERS: ADMIT Family Medicine; ATTEND Family Medicine

== ENCOUNTER 2018-11-07 10:12 | Inpatient (IN) ==
[2018-11-07] MEDS ORDERED: ONDANSETRON 4 MG/2 ML VIAL IV PRN (11:05)
[2018-11-07 12:06] LABS: Basophils # 0.1 10*3/uL (0.0-0.2); Basophils % 0.6 % (0.0-0.8); Eosinophils % 11.7 % (0.00-10.9); Hemoglobin 8.1 GM/DL (12.0-16.0); Immature Granulocytes % 1.3 %; Immature Granulocytes Absolute 0.11 #; Lymphocytes % 12.3 % (21.3-54.2); Mean Corpuscular HGB Conc 31.2 GM/DL (32-36); Mean Corpuscular Volume 93.2 FL (87-102); Mean Platelet Volume 10.3 FL (9.6-12.0); Monocytes % 8.2 % (1.7-12.7); Neutrophils % 65.9 % (38.7-73.9); Platelet Count 179 T/CUMM (130-400); Red Blood Count 2.79 MC/CUMM (3.8-5.5); Red Cell Distribution Width 19.7 % (9.3-17.3); White Blood Count 8.5 T/CUMM (4-12)
[2018-11-07 12:33] LABS: Anisocytosis 2+; Band Neutrophils 7 % (0-10); Eosinophils 10 % (0-10); Lymphocytes 11 % (20-55); Macrocytosis 1+; Platelet Estimate Normal; Poikilocytosis 1+; Polychromasia Slight; Segmented Neutrophils 67 % (50-85); Total Cells Counted 100
[2018-11-07 12:34] LABS: Acanthocytes Few; Helmet Cells Few
[2018-11-07 12:40] LABS: Albumin 3.6 G/DL (3.4-5.0); Bilirubin,Total 0.6 MG/DL (0.2-1.0); Calcium 8.3 MG/DL (8.5-10.1); Osmolality,Calculated 288.7 MOS/KG (273-304); Total Protein 6.6 G/DL (6.4-8.3)
[2018-11-07 12:47] LABS: Troponin I < 0.015 NG/ML (0.00-0.045)
[2018-11-07] MEDS ORDERED: NITROGLYCERIN SL 0.4 MG TABLET SL PRN (12:51)
[2018-11-07] MEDS ORDERED: PROMETHAZINE 25 MG TABLET PO PRN (12:51)
[2018-11-07] MEDS ORDERED: ALBUTEROL 2.5 MG/3 ML NEB RESP TX PRN (13:30)
[2018-11-07] MEDS: MAGNESIUM OXIDE 400 MG TABLET PO SCH (14:19)
[2018-11-07] MEDS: BENZONATATE 100 MG CAPSULE PO SCH ×2 (14:19→20:57)
[2018-11-07] MEDS: POTASSIUM CHLORIDE 10 MEQ TABLET PO SCH ×2 (14:19→20:57)
[2018-11-07] MEDS: SILDENAFIL 20 MG TABLET PO SCH ×2 (14:19→20:57)
[2018-11-07] MEDS ORDERED: FUROSEMIDE 40 MG/4 ML VIAL IV SCH (16:00)
[2018-11-07 18:43] LABS: Apearance,Urine CLEAR (Clear); Bacteria,Urine Occasional /HPF (Few); Bilirubin,Urine Negative (Negative); Blood, Urine Negative (Negative); Glucose,Urine (UA) Negative (Negative); Hyaline Casts,Urine 7 /LPF (0-3); Ketones,Urine Negative (Negative); Mucus,Urine Occasional /LPF (Occasional); Nitrite,Urine Negative (Negative); Protein,Urine Negative; RBC,Urine 2 /HPF (0-4); Squamous Epithelial Cell,Urine Occasional /HPF (0-10); Urine Color Colorless (Yellow); Urine Specific Gravity 1.004 (1.001-1.035); Urine Urobilinogen < 2.0 EU/DL (0.2-1.0); WBC,Urine 8 /HPF (0-6)
[2018-11-07] MEDS: ALBUTEROL 2.5 MG/3 ML NEB RESP TX SCH (19:36)
[2018-11-07] MEDS: DOCUSATE SODIUM 100 MG CAPSULE PO SCH (20:57)
[2018-11-07] MEDS ORDERED: DILTIAZEM 60 MG TABLET PO SCH (21:00)
[2018-11-07] MEDS: SIMVASTATIN 20 MG TABLET PO SCH (21:16)
[2018-11-07] MEDS: diphenhydrAMINE CAP 25 MG CAPSULE PO PRN (21:24)
[2018-11-08 05:12] LABS: Basophils # 0.1 10*3/uL (0.0-0.2); Basophils % 0.6 % (0.0-0.8); Eosinophils % 12.6 % (0.00-10.9); Hematocrit 23.6 VOL% (35.7-47.0); Hemoglobin 7.4 GM/DL (12.0-16.0); Immature Granulocytes Absolute 0.08 #; Lymphocytes # 1.5 10*3/uL (1.4-4.0); Lymphocytes % 18.9 % (21.3-54.2); Mean Corpuscular HGB Conc 31.4 GM/DL (32-36); Mean Corpuscular Volume 92.9 FL (87-102); Mean Platelet Volume 10.4 FL (9.6-12.0); Monocytes % 9.7 % (1.7-12.7); Neutrophils % 57.2 % (38.7-73.9); Platelet Count 178 T/CUMM (130-400); Red Blood Count 2.54 MC/CUMM (3.8-5.5); Red Cell Distribution Width 19.6 % (9.3-17.3); White Blood Count 7.9 T/CUMM (4-12)
[2018-11-08 05:43] LABS: Albumin 3.4 G/DL (3.4-5.0); Bilirubin,Total 0.6 MG/DL (0.2-1.0); Calcium 8.5 MG/DL (8.5-10.1)
[2018-11-08 06:26] LABS: Eosinophils 4 % (0-10); Lymphocytes 13 % (20-55); Segmented Neutrophils 81 % (50-85); Total Cells Counted 100
[2018-11-08 06:27] LABS: Acanthocytes Few; Anisocytosis 1+; Helmet Cells Slight; Hypochromasia 1+; Microcytosis 1+; Polychromasia Slight; Smudge Cells Few
[2018-11-08 06:28] LABS: Platelet Estimate Adequate
[2018-11-08] MEDS: ALBUTEROL 2.5 MG/3 ML NEB RESP TX SCH ×3 (07:13→13:56)
[2018-11-08] MEDS ORDERED: SODIUM CHLORIDE 0.9% 1,000 ML IV PRN (08:39)
[2018-11-08] MEDS ORDERED: FUROSEMIDE 40 MG/4 ML VIAL IV ONE (08:40)
[2018-11-08] MEDS ORDERED: MECLIZINE 12.5 MG TABLET PO PRN (08:45)
[2018-11-08] MEDS ORDERED: AMBRISENTAN 10 MG PO SCH (09:00)
[2018-11-08] MEDS ORDERED: metOLazone 2.5 MG TABLET PO SCH (09:00)
[2018-11-08] MEDS: POTASSIUM CHLORIDE 10 MEQ TABLET PO SCH ×3 (09:25→20:29)
[2018-11-08] MEDS: FEXOFENADINE 60 MG TABLET PO SCH (09:25)
[2018-11-08] MEDS: COLCHICINE 0.6 MG CAPSULE PO SCH (09:25)
[2018-11-08] MEDS: ASPIRIN EC 81 MG TABLET PO SCH (09:25)
[2018-11-08] MEDS: SILDENAFIL 20 MG TABLET PO SCH ×3 (09:25→20:28)
[2018-11-08] MEDS: BENZONATATE 100 MG CAPSULE PO SCH ×3 (09:25→20:28)
[2018-11-08] MEDS: LEVOFLOXACIN 250 MG TABLET PO SCH (09:25)
[2018-11-08] MEDS: DOCUSATE SODIUM 100 MG CAPSULE PO SCH ×2 (09:26→20:29)
[2018-11-08] MEDS: ALLOPURINOL 100 MG TABLET PO SCH (09:26)
[2018-11-08] MEDS: PANTOPRAZOLE 40 MG TABLET PO SCH (09:26)
[2018-11-08] MEDS: FERROUS SULFATE 325 MG TABLET PO SCH ×2 (09:26→20:29)
[2018-11-08] MEDS: MAGNESIUM OXIDE 400 MG TABLET PO SCH (09:26)
[2018-11-08] MEDS: DILTIAZEM CD 120 MG CAPSULE PO SCH ×2 (09:26→20:29)
[2018-11-08] MEDS: CHOLECALCIFEROL 1,000 UNIT TABLET PO SCH (09:26)
[2018-11-08] MEDS: FUROSEMIDE 40 MG/4 ML VIAL IV SCH (09:27)
[2018-11-08] MEDS: predniSONE 5 MG TABLET PO SCH (09:31)
[2018-11-08] MEDS: diphenhydrAMINE CAP 25 MG CAPSULE PO PRN ×2 (09:31→20:31)
[2018-11-08] MEDS: ALBUTEROL/IPRATROPIUM 3 ML NEB RESP TX SCH ×3 (10:54→19:48)
[2018-11-08 19:02] LABS: Hematocrit 29.9 VOL% (35.7-47.0); Hemoglobin 9.3 GM/DL (12.0-16.0)
[2018-11-08] MEDS: SIMVASTATIN 20 MG TABLET PO SCH (20:29)
[2018-11-09] MEDS: ALBUTEROL/IPRATROPIUM 3 ML NEB RESP TX SCH ×7 (00:35→23:48)
[2018-11-09 04:59] LABS: Basophils # 0.1 10*3/uL (0.0-0.2); Basophils % 0.8 % (0.0-0.8); Eosinophils # 0.9 10*3/uL (0.0-0.87); Eosinophils % 12.1 % (0.00-10.9); Hematocrit 28.5 VOL% (35.7-47.0); Immature Granulocytes % 0.8 %; Immature Granulocytes Absolute 0.06 #; Lymphocytes # 1.7 10*3/uL (1.4-4.0); Lymphocytes % 22.2 % (21.3-54.2); Mean Corpuscular HGB Conc 31.6 GM/DL (32-36); Mean Corpuscular Volume 90.2 FL (87-102); Mean Platelet Volume 10.1 FL (9.6-12.0); Monocytes % 9.1 % (1.7-12.7); Platelet Count 172 T/CUMM (130-400); Red Blood Count 3.16 MC/CUMM (3.8-5.5); Red Cell Distribution Width 19.3 % (9.3-17.3); White Blood Count 7.6 T/CUMM (4-12)
[2018-11-09 05:24] LABS: Albumin 3.4 G/DL (3.4-5.0); Bilirubin,Total 0.7 MG/DL (0.2-1.0); Calcium 8.8 MG/DL (8.5-10.1); Osmolality,Calculated 282.3 MOS/KG (273-304)
[2018-11-09 06:00] LABS: Anisocytosis 2+; Eosinophils 12 % (0-10); Lymphocytes 13 % (20-55); Metamyelocytes 1 %; Microcytosis 1+; Poikilocytosis 1+; Segmented Neutrophils 70 % (50-85); Total Cells Counted 100
[2018-11-09 06:01] LABS: Burr Cells Few; Macrocytosis Slight; Ovalocytes 1+; Platelet Estimate Adequate; Polychromasia Slight; Smudge Cells Few; Target Cells Slight
[2018-11-09] MEDS: LINACLOTIDE 145 MCG CAPSULE PO SCH (09:59)
[2018-11-09] MEDS: DOCUSATE SODIUM 100 MG CAPSULE PO SCH ×2 (09:59→20:32)
[2018-11-09] MEDS: COLCHICINE 0.6 MG CAPSULE PO SCH (09:59)
[2018-11-09] MEDS: FEXOFENADINE 60 MG TABLET PO SCH (09:59)
[2018-11-09] MEDS: CHOLECALCIFEROL 1,000 UNIT TABLET PO SCH (09:59)
[2018-11-09] MEDS: LEVOFLOXACIN 250 MG TABLET PO SCH (09:59)
[2018-11-09] MEDS: ALLOPURINOL 100 MG TABLET PO SCH (10:00)
[2018-11-09] MEDS: ASPIRIN EC 81 MG TABLET PO SCH (10:00)
[2018-11-09] MEDS: PANTOPRAZOLE 40 MG TABLET PO SCH (10:00)
[2018-11-09] MEDS: predniSONE 5 MG TABLET PO SCH (10:00)
[2018-11-09] MEDS: POTASSIUM CHLORIDE 20 MEQ TABLET PO SCH ×2 (10:00→20:32)
[2018-11-09] MEDS: MAGNESIUM OXIDE 400 MG TABLET PO SCH (10:00)
[2018-11-09] MEDS: SILDENAFIL 20 MG TABLET PO SCH ×3 (10:00→20:36)
[2018-11-09] MEDS: DILTIAZEM CD 120 MG CAPSULE PO SCH ×2 (10:00→20:32)
[2018-11-09] MEDS: BENZONATATE 100 MG CAPSULE PO SCH ×3 (10:00→20:32)
[2018-11-09] MEDS: FUROSEMIDE 40 MG/4 ML VIAL IV SCH (10:01)
[2018-11-09] MEDS: FERROUS SULFATE 325 MG TABLET PO SCH ×2 (10:01→20:32)
[2018-11-09] MEDS: POTASSIUM CHLORIDE 10 MEQ TABLET PO SCH (10:08)
[2018-11-09] MEDS: SIMVASTATIN 20 MG TABLET PO SCH (20:32)
[2018-11-09] MEDS: diphenhydrAMINE CAP 25 MG CAPSULE PO PRN (20:36)
[2018-11-10] MEDS: ALBUTEROL/IPRATROPIUM 3 ML NEB RESP TX SCH ×6 (03:21→23:54)
[2018-11-10 04:27] LABS: Basophils # 0.1 10*3/uL (0.0-0.2); Basophils % 0.8 % (0.0-0.8); Eosinophils # 1.1 10*3/uL (0.0-0.87); Eosinophils % 12.5 % (0.00-10.9); Hematocrit 29.5 VOL% (35.7-47.0); Hemoglobin 9.4 GM/DL (12.0-16.0); Immature Granulocytes % 0.7 %; Immature Granulocytes Absolute 0.06 #; Lymphocytes # 1.8 10*3/uL (1.4-4.0); Lymphocytes % 20.3 % (21.3-54.2); Mean Corpuscular HGB Conc 31.9 GM/DL (32-36); Mean Platelet Volume 10.2 FL (9.6-12.0); Monocytes % 8.4 % (1.7-12.7); Neutrophils % 57.3 % (38.7-73.9); Platelet Count 178 T/CUMM (130-400); Red Blood Count 3.24 MC/CUMM (3.8-5.5); Red Cell Distribution Width 18.6 % (9.3-17.3); White Blood Count 8.8 T/CUMM (4-12)
[2018-11-10 05:11] LABS: Albumin 3.4 G/DL (3.4-5.0); Anisocytosis 1+; Band Neutrophils 2 % (0-10); Bilirubin,Total 0.5 MG/DL (0.2-1.0); Calcium 8.5 MG/DL (8.5-10.1); Eosinophils 9 % (0-10); Lymphocytes 15 % (20-55); Osmolality,Calculated 273.8 MOS/KG (273-304); Segmented Neutrophils 66 % (50-85); Total Cells Counted 100; Total Protein 6.1 G/DL (6.4-8.3)
[2018-11-10 05:12] LABS: Acanthocytes 1+; Ovalocytes Few; Platelet Estimate Adequate
[2018-11-10] MEDS: LINACLOTIDE 145 MCG CAPSULE PO SCH (10:20)
[2018-11-10] MEDS: CHOLECALCIFEROL 1,000 UNIT TABLET PO SCH (10:20)
[2018-11-10] MEDS: MAGNESIUM OXIDE 400 MG TABLET PO SCH (10:21)
[2018-11-10] MEDS: DILTIAZEM CD 120 MG CAPSULE PO SCH ×2 (10:21→20:12)
[2018-11-10] MEDS: COLCHICINE 0.6 MG CAPSULE PO SCH (10:21)
[2018-11-10] MEDS: DOCUSATE SODIUM 100 MG CAPSULE PO SCH ×2 (10:22→20:12)
[2018-11-10] MEDS: predniSONE 5 MG TABLET PO SCH (10:22)
[2018-11-10] MEDS: LEVOFLOXACIN 250 MG TABLET PO SCH (10:22)
[2018-11-10] MEDS: ALLOPURINOL 100 MG TABLET PO SCH (10:22)
[2018-11-10] MEDS: SILDENAFIL 20 MG TABLET PO SCH ×3 (10:23→20:12)
[2018-11-10] MEDS: PANTOPRAZOLE 40 MG TABLET PO SCH (10:23)
[2018-11-10] MEDS: ASPIRIN EC 81 MG TABLET PO SCH (10:23)
[2018-11-10] MEDS: POTASSIUM CHLORIDE 20 MEQ TABLET PO SCH ×2 (10:23→20:12)
[2018-11-10] MEDS: BENZONATATE 100 MG CAPSULE PO SCH ×3 (10:23→20:12)
[2018-11-10] MEDS: FUROSEMIDE 40 MG/4 ML VIAL IV SCH (10:23)
[2018-11-10] MEDS: FERROUS SULFATE 325 MG TABLET PO SCH ×2 (10:23→20:12)
[2018-11-10] MEDS: FEXOFENADINE 60 MG TABLET PO SCH (10:34)
[2018-11-10] MEDS: AMBRISENTAN 10 MG PO SCH (13:41)
[2018-11-10] MEDS: diphenhydrAMINE CAP 25 MG CAPSULE PO PRN (20:12)
[2018-11-10] MEDS: SIMVASTATIN 20 MG TABLET PO SCH (20:12)
[2018-11-11] MEDS: ALBUTEROL/IPRATROPIUM 3 ML NEB RESP TX SCH ×5 (03:50→20:35)
[2018-11-11 05:18] LABS: Basophils # 0.1 10*3/uL (0.0-0.2); Basophils % 0.9 % (0.0-0.8); Eosinophils # 1.3 10*3/uL (0.0-0.87); Eosinophils % 14.9 % (0.00-10.9); Hematocrit 30.8 VOL% (35.7-47.0); Hemoglobin 9.5 GM/DL (12.0-16.0); Immature Granulocytes % 0.8 %; Immature Granulocytes Absolute 0.07 #; Lymphocytes # 1.5 10*3/uL (1.4-4.0); Lymphocytes % 17.9 % (21.3-54.2); Mean Corpuscular HGB Conc 30.8 GM/DL (32-36); Mean Corpuscular Volume 92.8 FL (87-102); Mean Platelet Volume 10.9 FL (9.6-12.0); Monocytes % 7.8 % (1.7-12.7); Neutrophils % 57.7 % (38.7-73.9); Platelet Count 187 T/CUMM (130-400); Red Blood Count 3.32 MC/CUMM (3.8-5.5); Red Cell Distribution Width 18.2 % (9.3-17.3); White Blood Count 8.6 T/CUMM (4-12)
[2018-11-11 06:00] LABS: Calcium 9.1 MG/DL (8.5-10.1); Osmolality,Calculated 276.5 MOS/KG (273-304)
[2018-11-11 06:13] LABS: Eosinophils 5 % (0-10); Lymphocytes 21 % (20-55); Segmented Neutrophils 67 % (50-85); Total Cells Counted 100
[2018-11-11 06:14] LABS: Acanthocytes Few; Anisocytosis 1+; Microcytosis 1+
[2018-11-11 06:15] LABS: Ovalocytes Slight; Platelet Estimate Normal
[2018-11-11] MEDS: FEXOFENADINE 60 MG TABLET PO SCH (09:10)
[2018-11-11] MEDS: LINACLOTIDE 145 MCG CAPSULE PO SCH (09:10)
[2018-11-11] MEDS: predniSONE 5 MG TABLET PO SCH (09:11)
[2018-11-11] MEDS: POTASSIUM CHLORIDE 20 MEQ TABLET PO SCH ×2 (09:11→21:12)
[2018-11-11] MEDS: SILDENAFIL 20 MG TABLET PO SCH ×3 (09:11→21:13)
[2018-11-11] MEDS: LEVOFLOXACIN 250 MG TABLET PO SCH (09:11)
[2018-11-11] MEDS: PANTOPRAZOLE 40 MG TABLET PO SCH (09:12)
[2018-11-11] MEDS: CHOLECALCIFEROL 1,000 UNIT TABLET PO SCH (09:12)
[2018-11-11] MEDS: BENZONATATE 100 MG CAPSULE PO SCH ×3 (09:12→21:10)
[2018-11-11] MEDS: ALLOPURINOL 100 MG TABLET PO SCH (09:12)
[2018-11-11] MEDS: FERROUS SULFATE 325 MG TABLET PO SCH ×2 (09:12→21:13)
[2018-11-11] MEDS: DILTIAZEM CD 120 MG CAPSULE PO SCH ×2 (09:12→21:11)
[2018-11-11] MEDS: COLCHICINE 0.6 MG CAPSULE PO SCH (09:12)
[2018-11-11] MEDS: ASPIRIN EC 81 MG TABLET PO SCH (09:12)
[2018-11-11] MEDS: DOCUSATE SODIUM 100 MG CAPSULE PO SCH ×2 (09:13→21:10)
[2018-11-11] MEDS: MAGNESIUM OXIDE 400 MG TABLET PO SCH (09:13)
[2018-11-11] MEDS: AMBRISENTAN 10 MG PO SCH (09:13)
[2018-11-11] MEDS: FUROSEMIDE 40 MG/4 ML VIAL IV SCH (09:19)
[2018-11-11 13:28] LABS: % Iron Saturation 17.9 % (18-50); Free T4 (Free Thyroxine) 1.68 NG/DL (0.76-1.46); Thyroid Stimulating Hormone 3.47 uIU/ml (0.358-3.74)
[2018-11-11] MEDS: MONTELUKAST 10 MG TABLET PO SCH ×2 (14:38→21:11)
[2018-11-11] MEDS: ACETAMINOPHEN 325 MG TABLET PO PRN (14:38)
[2018-11-11] MEDS: diphenhydrAMINE CAP 25 MG CAPSULE PO PRN (18:13)
[2018-11-11] MEDS: SIMVASTATIN 20 MG TABLET PO SCH (21:10)
[2018-11-12] MEDS: ALBUTEROL/IPRATROPIUM 3 ML NEB RESP TX SCH ×6 (00:05→20:57)
[2018-11-12 05:04] LABS: Basophils # 0.1 10*3/uL (0.0-0.2); Basophils % 0.9 % (0.0-0.8); Eosinophils # 0.9 10*3/uL (0.0-0.87); Eosinophils % 13.8 % (0.00-10.9); Hematocrit 40.2 VOL% (35.7-47.0); Hemoglobin 12.5 GM/DL (12.0-16.0); Immature Granulocytes % 0.6 %; Immature Granulocytes Absolute 0.04 #; Lymphocytes # 1.1 10*3/uL (1.4-4.0); Lymphocytes % 16.5 % (21.3-54.2); Mean Corpuscular HGB Conc 31.1 GM/DL (32-36); Mean Corpuscular Volume 91.4 FL (87-102); Mean Platelet Volume 9.9 FL (9.6-12.0); Monocytes % 7.4 % (1.7-12.7); Neutrophils % 60.8 % (38.7-73.9); Platelet Count 139 T/CUMM (130-400); Red Cell Distribution Width 17.8 % (9.3-17.3); White Blood Count 6.5 T/CUMM (4-12)
[2018-11-12 05:27] LABS: Calcium 8.2 MG/DL (8.5-10.1); Osmolality,Calculated 278.4 MOS/KG (273-304)
[2018-11-12 05:37] LABS: Eosinophils 10 % (0-10); Lymphocytes 17 % (20-55); Segmented Neutrophils 66 % (50-85); Total Cells Counted 100
[2018-11-12 05:38] LABS: Acanthocytes 1+; Anisocytosis 1+; Platelet Estimate Adequate
[2018-11-12] MEDS: diphenhydrAMINE CAP 25 MG CAPSULE PO PRN (06:07)
[2018-11-12] MEDS ORDERED: FUROSEMIDE 40 MG TABLET PO SCH (09:00)
[2018-11-12] MEDS: MONTELUKAST 10 MG TABLET PO SCH ×2 (09:07→21:03)
[2018-11-12] MEDS: DOCUSATE SODIUM 100 MG CAPSULE PO SCH ×2 (09:07→21:04)
[2018-11-12] MEDS: ASPIRIN EC 81 MG TABLET PO SCH (09:07)
[2018-11-12] MEDS: MAGNESIUM OXIDE 400 MG TABLET PO SCH (09:07)
[2018-11-12] MEDS: CHOLECALCIFEROL 1,000 UNIT TABLET PO SCH (09:08)
[2018-11-12] MEDS: FEXOFENADINE 60 MG TABLET PO SCH (09:08)
[2018-11-12] MEDS: COLCHICINE 0.6 MG CAPSULE PO SCH (09:09)
[2018-11-12] MEDS: PANTOPRAZOLE 40 MG TABLET PO SCH (09:09)
[2018-11-12] MEDS: SILDENAFIL 20 MG TABLET PO SCH (09:09)
[2018-11-12] MEDS: LEVOFLOXACIN 250 MG TABLET PO SCH (09:09)
[2018-11-12] MEDS: DILTIAZEM CD 120 MG CAPSULE PO SCH (09:09)
[2018-11-12] MEDS: LINACLOTIDE 145 MCG CAPSULE PO SCH (09:09)
[2018-11-12] MEDS: ALLOPURINOL 100 MG TABLET PO SCH (09:09)
[2018-11-12] MEDS: POTASSIUM CHLORIDE 20 MEQ TABLET PO SCH ×3 (09:09→21:03)
[2018-11-12] MEDS: BENZONATATE 100 MG CAPSULE PO SCH ×3 (09:09→21:03)
[2018-11-12] MEDS: predniSONE 5 MG TABLET PO SCH (09:09)
[2018-11-12] MEDS: FERROUS SULFATE 325 MG TABLET PO SCH ×2 (09:09→21:03)
[2018-11-12] MEDS: AMBRISENTAN 10 MG PO SCH (09:10)
[2018-11-12] MEDS ORDERED: SODIUM CHLORIDE 0.9% 500 ML IV ONE (11:37)
[2018-11-12] MEDS: FLUTICASONE/SALMETEROL 250-50 DISKUS 14 DOSE INH SCH ×2 (13:08→21:04)
[2018-11-12] MEDS: SIMVASTATIN 20 MG TABLET PO SCH (21:03)
[2018-11-13] MEDS: ALBUTEROL/IPRATROPIUM 3 ML NEB RESP TX SCH ×7 (04:09→23:04)
[2018-11-13 06:07] LABS: Basophils # 0.1 10*3/uL (0.0-0.2); Eosinophils # 1.1 10*3/uL (0.0-0.87); Eosinophils % 12.2 % (0.00-10.9); Hematocrit 30.7 VOL% (35.7-47.0); Hemoglobin 9.6 GM/DL (12.0-16.0); Immature Granulocytes % 0.6 %; Immature Granulocytes Absolute 0.05 #; Lymphocytes # 1.1 10*3/uL (1.4-4.0); Lymphocytes % 12.8 % (21.3-54.2); Mean Corpuscular HGB Conc 31.3 GM/DL (32-36); Mean Corpuscular Volume 93.6 FL (87-102); Mean Platelet Volume 10.5 FL (9.6-12.0); Monocytes % 8.7 % (1.7-12.7); Neutrophils % 64.7 % (38.7-73.9); Platelet Count 177 T/CUMM (130-400); Red Blood Count 3.28 MC/CUMM (3.8-5.5); Red Cell Distribution Width 17.6 % (9.3-17.3); White Blood Count 8.9 T/CUMM (4-12)
[2018-11-13 06:13] LABS: Calcium 9.1 MG/DL (8.5-10.1); Osmolality,Calculated 280.3 MOS/KG (273-304)
[2018-11-13 06:43] LABS: Eosinophils 14 % (0-10); Hypochromasia 1+; Lymphocytes 14 % (20-55); Ovalocytes Slight; Platelet Estimate Adequate; Segmented Neutrophils 68 % (50-85); Total Cells Counted 100
[2018-11-13] MEDS: AMBRISENTAN 10 MG PO SCH (08:12)
[2018-11-13] MEDS: ASPIRIN EC 81 MG TABLET PO SCH (08:13)
[2018-11-13] MEDS: FERROUS SULFATE 325 MG TABLET PO SCH ×2 (08:13→20:43)
[2018-11-13] MEDS: predniSONE 5 MG TABLET PO SCH (08:13)
[2018-11-13] MEDS: MONTELUKAST 10 MG TABLET PO SCH ×2 (08:13→20:42)
[2018-11-13] MEDS: ALLOPURINOL 100 MG TABLET PO SCH (08:13)
[2018-11-13] MEDS: COLCHICINE 0.6 MG CAPSULE PO SCH (08:13)
[2018-11-13] MEDS: DOCUSATE SODIUM 100 MG CAPSULE PO SCH ×2 (08:13→20:43)
[2018-11-13] MEDS: PANTOPRAZOLE 40 MG TABLET PO SCH (08:13)
[2018-11-13] MEDS: LINACLOTIDE 145 MCG CAPSULE PO SCH (08:13)
[2018-11-13] MEDS: BENZONATATE 100 MG CAPSULE PO SCH ×3 (08:13→20:43)
[2018-11-13] MEDS: MAGNESIUM OXIDE 400 MG TABLET PO SCH (08:13)
[2018-11-13] MEDS: FLUTICASONE/SALMETEROL 250-50 DISKUS 14 DOSE INH SCH ×2 (08:14→20:41)
[2018-11-13] MEDS: LEVOFLOXACIN 250 MG TABLET PO SCH (08:14)
[2018-11-13] MEDS: POTASSIUM CHLORIDE 20 MEQ TABLET PO SCH ×3 (08:14→20:42)
[2018-11-13] MEDS: FEXOFENADINE 60 MG TABLET PO SCH (08:14)
[2018-11-13] MEDS: CHOLECALCIFEROL 1,000 UNIT TABLET PO SCH (08:14)
[2018-11-13] MEDS: diphenhydrAMINE CAP 25 MG CAPSULE PO PRN (15:57)
[2018-11-13] MEDS: ACETAMINOPHEN 325 MG TABLET PO PRN (20:42)
[2018-11-13] MEDS: SIMVASTATIN 20 MG TABLET PO SCH (20:43)
[2018-11-14] MEDS: ALBUTEROL/IPRATROPIUM 3 ML NEB RESP TX SCH ×3 (02:00→11:10)
[2018-11-14] MEDS: ACETAMINOPHEN 325 MG TABLET PO PRN (02:22)
[2018-11-14] MEDS: LEVOFLOXACIN 250 MG TABLET PO SCH (08:50)
[2018-11-14] MEDS: DOCUSATE SODIUM 100 MG CAPSULE PO SCH (08:50)
[2018-11-14] MEDS: ALLOPURINOL 100 MG TABLET PO SCH (08:50)
[2018-11-14] MEDS: COLCHICINE 0.6 MG CAPSULE PO SCH (08:50)
[2018-11-14] MEDS: BENZONATATE 100 MG CAPSULE PO SCH (08:51)
[2018-11-14] MEDS: ASPIRIN EC 81 MG TABLET PO SCH (08:51)
[2018-11-14] MEDS: CHOLECALCIFEROL 1,000 UNIT TABLET PO SCH (08:51)
[2018-11-14] MEDS: MAGNESIUM OXIDE 400 MG TABLET PO SCH (08:51)
[2018-11-14] MEDS: POTASSIUM CHLORIDE 20 MEQ TABLET PO SCH ×2 (08:51→09:07)
[2018-11-14] MEDS: FERROUS SULFATE 325 MG TABLET PO SCH (08:51)
[2018-11-14] MEDS: PANTOPRAZOLE 40 MG TABLET PO SCH (08:51)
[2018-11-14] MEDS: MONTELUKAST 10 MG TABLET PO SCH (08:51)
[2018-11-14] MEDS: FEXOFENADINE 60 MG TABLET PO SCH (08:54)
[2018-11-14] MEDS: LINACLOTIDE 145 MCG CAPSULE PO SCH (08:54)
[2018-11-14] MEDS: FLUTICASONE/SALMETEROL 250-50 DISKUS 14 DOSE INH SCH (08:55)
[2018-11-14] MEDS: AMBRISENTAN 10 MG PO SCH (08:55)
[2018-11-14] MEDS: diphenhydrAMINE CAP 25 MG CAPSULE PO PRN (08:59)
[2018-11-14] MEDS: predniSONE 5 MG TABLET PO SCH (09:17)
[2018-11-14 12:44] VITALS: BP 112/69
== END 2018-11-14 12:50 | disposition home health service (06) | DRG 291 ==
LOC: N.TELES → INTOOBSV 10:24 → OBSVTOIN 10:24
PROVIDERS: ADMIT Family Medicine; ATTEND Family Medicine

== ENCOUNTER 2018-11-21 16:23 | Inpatient (IN) ==
[2018-11-21] MEDS ORDERED: ALBUTEROL/IPRATROPIUM 3 ML NEB RESP TX STA (16:48)
[2018-11-21] MEDS ORDERED: methylPREDNISolone SOD SUC 125 MG/2 ML VIAL IV STA (16:48)
[2018-11-21] MEDS ORDERED: FUROSEMIDE 100 MG/10 ML VIAL IV STA (16:48)
[2018-11-21] MEDS ORDERED: FUROSEMIDE 40 MG/4 ML VIAL ONE (16:53)
[2018-11-21 16:57] LABS: Basophils # 0.1 10*3/uL (0.0-0.2); Basophils % 1.4 % (0.0-0.8); Eosinophils # 1.2 10*3/uL (0.0-0.87); Eosinophils % 13.8 % (0.00-10.9); Hematocrit 34.2 VOL% (35.7-47.0); Hemoglobin 10.5 GM/DL (12.0-16.0); Immature Granulocytes % 0.8 %; Immature Granulocytes Absolute 0.07 #; Lymphocytes % 11.5 % (21.3-54.2); Mean Corpuscular HGB Conc 30.7 GM/DL (32-36); Mean Corpuscular Volume 92.9 FL (87-102); Mean Platelet Volume 10.2 FL (9.6-12.0); Monocytes % 5.6 % (1.7-12.7); Neutrophils % 66.9 % (38.7-73.9); Platelet Count 222 T/CUMM (130-400); Red Blood Count 3.68 MC/CUMM (3.8-5.5); Red Cell Distribution Width 16.2 % (9.3-17.3); White Blood Count 8.5 T/CUMM (4-12)
[2018-11-21 17:08] LABS: ABG Base Excess -6.1 MMOL/L (-2.5-2.5); ABG HCO3 19.1 MMOL/L (20-26); ABG Oxygen Saturation 76.2 % (95-100); ABG PCO2 39.1 MM HG (35-48); ABG PH 7.312 (7.35-7.45); ABG PO2 46.1 MM HG (80-95); Allen Test Positive
[2018-11-21 17:19] LABS: INR 1.1; PT Patient Result 11.6 SECS; Partial Thromboplastin Time 75.5 SECS (0-40)
[2018-11-21 17:23] LABS: Albumin 3.7 G/DL (3.4-5.0); Bilirubin,Total 0.5 MG/DL (0.2-1.0); Calcium 9.1 MG/DL (8.5-10.1); Osmolality,Calculated 277.4 MOS/KG (273-304); Total Protein 7.1 G/DL (6.4-8.3)
[2018-11-21 17:51] LABS: Apearance,Urine CLEAR (Clear); Bacteria,Urine Occasional /HPF (Few); Bilirubin,Urine Negative (Negative); Blood, Urine Negative (Negative); Glucose,Urine (UA) Negative (Negative); Hyaline Casts,Urine 7 /LPF (0-3); Ketones,Urine Negative (Negative); Mucus,Urine Occasional /LPF (Occasional); Nitrite,Urine Negative (Negative); Protein,Urine Negative; RBC,Urine <1 /HPF (0-4); Squamous Epithelial Cell,Urine Occasional /HPF (0-10); Urine Color Straw (Yellow); Urine Specific Gravity 1.004 (1.001-1.035); Urine Urobilinogen < 2.0 EU/DL (0.2-1.0)
[2018-11-21 17:56] LABS: Eosinophils 13 % (0-10); Lymphocytes 9 % (20-55); Segmented Neutrophils 73 % (50-85); Total Cells Counted 100
[2018-11-21 17:57] LABS: Acanthocytes Few; Anisocytosis Slight; Platelet Estimate Adequate; Sickle Cells Slight
[2018-11-21] MEDS ORDERED: diphenhydrAMINE CAP 25 MG CAPSULE ONE (18:49)
[2018-11-21] MEDS ORDERED: diphenhydrAMINE CAP 25 MG CAPSULE PO STA (18:56)
[2018-11-21] MEDS ORDERED: ONDANSETRON 4 MG/2 ML VIAL IV PRN ×3 (18:59→19:11)
[2018-11-21] MEDS ORDERED: ACETAMINOPHEN 325 MG TABLET PO PRN ×2 (19:05→19:11)
[2018-11-21] MEDS ORDERED: ALBUTEROL/IPRATROPIUM 3 ML NEB RESP TX PRN (19:19)
[2018-11-21] MEDS ORDERED: DOCUSATE SODIUM 100 MG CAPSULE PO SCH (21:00)
[2018-11-21 21:56] LABS: Osmolality,Calculated 281.3 MOS/KG (273-304)
[2018-11-21] MEDS: DOCUSATE SODIUM 100 MG CAPSULE PO SCH (22:23)
[2018-11-22] MEDS: ALBUTEROL/IPRATROPIUM 3 ML NEB RESP TX SCH ×4 (02:00→19:40)
[2018-11-22] MEDS ORDERED: NITROGLYCERIN SL 0.4 MG TABLET SL PRN (02:31)
[2018-11-22] MEDS ORDERED: MECLIZINE 12.5 MG TABLET PO PRN (02:31)
[2018-11-22] MEDS ORDERED: BENZONATATE 100 MG CAPSULE PO PRN (02:31)
[2018-11-22] MEDS ORDERED: ACETAMINOPHEN 325 MG TABLET PO PRN (02:31)
[2018-11-22] MEDS: methylPREDNISolone SOD SUC 125 MG/2 ML VIAL IV SCH ×3 (04:49→22:41)
[2018-11-22 05:44] LABS: Basophils % 0.2 % (0.0-0.8); Eosinophils % 0.2 % (0.00-10.9); Hematocrit 30.9 VOL% (35.7-47.0); Hemoglobin 9.6 GM/DL (12.0-16.0); Immature Granulocytes % 1.1 %; Immature Granulocytes Absolute 0.09 #; Lymphocytes # 0.6 10*3/uL (1.4-4.0); Lymphocytes % 7.3 % (21.3-54.2); Mean Corpuscular HGB Conc 31.1 GM/DL (32-36); Mean Platelet Volume 11.2 FL (9.6-12.0); Monocytes % 0.9 % (1.7-12.7); Neutrophils % 90.3 % (38.7-73.9); Platelet Count 218 T/CUMM (130-400); Red Blood Count 3.36 MC/CUMM (3.8-5.5); Red Cell Distribution Width 16.1 % (9.3-17.3); White Blood Count 8.5 T/CUMM (4-12)
[2018-11-22] MEDS ORDERED: methylPREDNISolone SOD SUC 125 MG/2 ML VIAL IV SCH (06:00)
[2018-11-22 06:06] LABS: Calcium 9.2 MG/DL (8.5-10.1); Osmolality,Calculated 282.4 MOS/KG (273-304)
[2018-11-22] MEDS: PANTOPRAZOLE 40 MG TABLET PO SCH ×2 (06:45→18:07)
[2018-11-22] MEDS: BUDESONIDE 0.25 MG/2 ML NEB RESP TX SCH ×2 (07:57→19:40)
[2018-11-22] MEDS ORDERED: PANTOPRAZOLE 40 MG TABLET PO SCH ×3 (09:00)
[2018-11-22] MEDS: FUROSEMIDE 100 MG/10 ML VIAL IV SCH (09:35)
[2018-11-22] MEDS: ASPIRIN EC 81 MG TABLET PO SCH (09:36)
[2018-11-22] MEDS: DOCUSATE SODIUM 100 MG CAPSULE PO SCH ×2 (09:36→22:40)
[2018-11-22] MEDS: MAGNESIUM GLUCONATE 500 MG TABLET PO SCH (09:36)
[2018-11-22] MEDS: POTASSIUM CHLORIDE 20 MEQ TABLET PO SCH ×3 (09:36→22:40)
[2018-11-22] MEDS: LINACLOTIDE 145 MCG CAPSULE PO SCH (09:37)
[2018-11-22] MEDS: ALLOPURINOL 100 MG TABLET PO SCH (09:37)
[2018-11-22] MEDS: MONTELUKAST 10 MG TABLET PO SCH ×2 (09:37→22:40)
[2018-11-22] MEDS: FERROUS SULFATE 325 MG TABLET PO SCH ×2 (09:37→22:41)
[2018-11-22] MEDS: DILTIAZEM CD 120 MG CAPSULE PO SCH ×2 (09:37→22:40)
[2018-11-22] MEDS: SILDENAFIL 20 MG TABLET PO SCH ×3 (09:37→22:39)
[2018-11-22] MEDS: traMADol 50 MG TABLET PO PRN (14:00)
[2018-11-22] MEDS: ACETAMINOPHEN 325 MG TABLET PO PRN (18:17)
[2018-11-23] MEDS: ALBUTEROL/IPRATROPIUM 3 ML NEB RESP TX SCH ×4 (00:50→19:40)
[2018-11-23] MEDS: methylPREDNISolone SOD SUC 125 MG/2 ML VIAL IV SCH ×3 (03:41→21:49)
[2018-11-23 05:25] LABS: Basophils % 0.1 % (0.0-0.8); Eosinophils % 0.1 % (0.00-10.9); Hematocrit 31.2 VOL% (35.7-47.0); Hemoglobin 9.9 GM/DL (12.0-16.0); Immature Granulocytes % 1.9 %; Immature Granulocytes Absolute 0.29 #; Lymphocytes # 0.8 10*3/uL (1.4-4.0); Lymphocytes % 4.9 % (21.3-54.2); Mean Corpuscular HGB Conc 31.7 GM/DL (32-36); Mean Corpuscular Volume 90.4 FL (87-102); Mean Platelet Volume 10.8 FL (9.6-12.0); Monocytes % 2.1 % (1.7-12.7); Neutrophils % 90.9 % (38.7-73.9); Platelet Count 243 T/CUMM (130-400); Red Blood Count 3.45 MC/CUMM (3.8-5.5); Red Cell Distribution Width 16.2 % (9.3-17.3); White Blood Count 15.5 T/CUMM (4-12)
[2018-11-23 05:43] LABS: Calcium 9.3 MG/DL (8.5-10.1); Osmolality,Calculated 281.5 MOS/KG (273-304)
[2018-11-23 06:46] LABS: Anisocytosis 2+; Band Neutrophils 9 % (0-10); Lymphocytes 2 % (20-55); Platelet Estimate Normal; Poikilocytosis 2+; Segmented Neutrophils 87 % (50-85); Total Cells Counted 100
[2018-11-23 06:47] LABS: Burr Cells 1+; Macrocytosis Slight
[2018-11-23] MEDS: BUDESONIDE 0.25 MG/2 ML NEB RESP TX SCH ×2 (07:46→19:40)
[2018-11-23] MEDS: PANTOPRAZOLE 40 MG TABLET PO SCH ×2 (08:21→18:39)
[2018-11-23] MEDS: LINACLOTIDE 145 MCG CAPSULE PO SCH (08:21)
[2018-11-23] MEDS: MONTELUKAST 10 MG TABLET PO SCH ×2 (08:54→21:57)
[2018-11-23] MEDS: DOCUSATE SODIUM 100 MG CAPSULE PO SCH ×2 (08:54→21:52)
[2018-11-23] MEDS: FUROSEMIDE 100 MG/10 ML VIAL IV SCH (08:54)
[2018-11-23] MEDS: DILTIAZEM CD 120 MG CAPSULE PO SCH ×2 (08:55→21:51)
[2018-11-23] MEDS: MAGNESIUM GLUCONATE 500 MG TABLET PO SCH (08:55)
[2018-11-23] MEDS: ALLOPURINOL 100 MG TABLET PO SCH (08:55)
[2018-11-23] MEDS: SILDENAFIL 20 MG TABLET PO SCH ×3 (08:55→21:51)
[2018-11-23] MEDS: FERROUS SULFATE 325 MG TABLET PO SCH ×2 (08:56→21:51)
[2018-11-23] MEDS: POTASSIUM CHLORIDE 20 MEQ TABLET PO SCH ×3 (08:56→21:51)
[2018-11-23] MEDS: AMBRISENTAN 10 MG PO SCH (08:56)
[2018-11-23] MEDS: ASPIRIN EC 81 MG TABLET PO SCH (08:56)
[2018-11-24] MEDS: ALBUTEROL/IPRATROPIUM 3 ML NEB RESP TX SCH ×4 (01:15→19:15)
[2018-11-24] MEDS: ACETAMINOPHEN 325 MG TABLET PO PRN ×2 (02:14→21:35)
[2018-11-24] MEDS: methylPREDNISolone SOD SUC 125 MG/2 ML VIAL IV SCH ×2 (04:16→14:20)
[2018-11-24] MEDS: PANTOPRAZOLE 40 MG TABLET PO SCH ×2 (06:01→20:30)
[2018-11-24] MEDS: BUDESONIDE 0.25 MG/2 ML NEB RESP TX SCH ×2 (07:35→19:15)
[2018-11-24] MEDS ORDERED: metOLazone 5 MG TABLET PO PRN (09:40)
[2018-11-24] MEDS: LINACLOTIDE 145 MCG CAPSULE PO SCH (09:41)
[2018-11-24] MEDS: AMBRISENTAN 10 MG PO SCH (09:42)
[2018-11-24] MEDS: MAGNESIUM GLUCONATE 500 MG TABLET PO SCH (09:42)
[2018-11-24] MEDS: DILTIAZEM CD 120 MG CAPSULE PO SCH ×2 (09:43→20:29)
[2018-11-24] MEDS: POTASSIUM CHLORIDE 20 MEQ TABLET PO SCH ×3 (09:43→20:29)
[2018-11-24] MEDS: FERROUS SULFATE 325 MG TABLET PO SCH ×2 (09:43→20:29)
[2018-11-24] MEDS: MONTELUKAST 10 MG TABLET PO SCH ×2 (09:44→20:28)
[2018-11-24] MEDS: DOCUSATE SODIUM 100 MG CAPSULE PO SCH ×2 (09:44→20:28)
[2018-11-24] MEDS: FUROSEMIDE 100 MG/10 ML VIAL IV SCH (09:44)
[2018-11-24] MEDS: SILDENAFIL 20 MG TABLET PO SCH ×3 (10:06→20:30)
[2018-11-24] MEDS: ASPIRIN EC 81 MG TABLET PO SCH (10:06)
[2018-11-24] MEDS: ALLOPURINOL 100 MG TABLET PO SCH (10:07)
[2018-11-24] MEDS: traMADol 50 MG TABLET PO PRN (14:21)
[2018-11-24] MEDS: methylPREDNISolone SOD SUC 40 MG/1 ML VIAL IV SCH (21:32)
[2018-11-25] MEDS: ALBUTEROL/IPRATROPIUM 3 ML NEB RESP TX SCH ×2 (01:14→07:56)
[2018-11-25] MEDS: methylPREDNISolone SOD SUC 40 MG/1 ML VIAL IV SCH (05:15)
[2018-11-25 05:50] LABS: Basophils % 0.1 % (0.0-0.8); Hematocrit 32.2 VOL% (35.7-47.0); Hemoglobin 10.5 GM/DL (12.0-16.0); Immature Granulocytes % 3.2 %; Immature Granulocytes Absolute 0.41 #; Lymphocytes # 0.7 10*3/uL (1.4-4.0); Lymphocytes % 5.6 % (21.3-54.2); Mean Corpuscular HGB Conc 32.6 GM/DL (32-36); Mean Corpuscular Volume 89.7 FL (87-102); Mean Platelet Volume 11.2 FL (9.6-12.0); Neutrophils % 89.1 % (38.7-73.9); Platelet Count 239 T/CUMM (130-400); Red Blood Count 3.59 MC/CUMM (3.8-5.5); Red Cell Distribution Width 16.1 % (9.3-17.3); White Blood Count 12.9 T/CUMM (4-12)
[2018-11-25 06:28] LABS: Calcium 8.6 MG/DL (8.5-10.1); Osmolality,Calculated 283.8 MOS/KG (273-304)
[2018-11-25] MEDS: BUDESONIDE 0.25 MG/2 ML NEB RESP TX SCH (08:02)
[2018-11-25 08:49] VITALS: BP 110/72
[2018-11-25] MEDS: DOCUSATE SODIUM 100 MG CAPSULE PO SCH (09:09)
[2018-11-25] MEDS: LINACLOTIDE 145 MCG CAPSULE PO SCH (09:10)
[2018-11-25] MEDS: MAGNESIUM GLUCONATE 500 MG TABLET PO SCH (09:11)
[2018-11-25] MEDS: FERROUS SULFATE 325 MG TABLET PO SCH (09:12)
[2018-11-25] MEDS: MONTELUKAST 10 MG TABLET PO SCH (09:12)
[2018-11-25] MEDS: ALLOPURINOL 100 MG TABLET PO SCH (09:13)
[2018-11-25] MEDS: SILDENAFIL 20 MG TABLET PO SCH (09:13)
[2018-11-25] MEDS: POTASSIUM CHLORIDE 20 MEQ TABLET PO SCH (09:13)
[2018-11-25] MEDS: PANTOPRAZOLE 40 MG TABLET PO SCH (09:14)
[2018-11-25] MEDS: ASPIRIN EC 81 MG TABLET PO SCH (09:15)
[2018-11-25] MEDS: DILTIAZEM CD 120 MG CAPSULE PO SCH (09:16)
[2018-11-25] MEDS: AMBRISENTAN 10 MG PO SCH (09:16)
[2018-11-25] MEDS: FUROSEMIDE 100 MG/10 ML VIAL IV SCH (09:17)
== END 2018-11-25 11:47 | disposition home health service (06) | DRG 291 ==
LOC: N.ED 16:23 → N.EDINP 18:59 → N.TELEN 19:54
PROVIDERS: ADMIT Family Medicine; ATTEND Family Medicine

== ENCOUNTER 2019-03-14 10:31 | Inpatient (IN) ==
[2019-03-14] MEDS ORDERED: LEVOFLOXACIN INJ 750 MG in PREMIX 1 EACH IV STA (10:50)
[2019-03-14] MEDS ORDERED: ONDANSETRON 4 MG/2 ML VIAL IV STA (10:50)
[2019-03-14] MEDS ORDERED: methylPREDNISolone SOD SUC 125 MG/2 ML VIAL IV STA (10:50)
[2019-03-14] MEDS ORDERED: ALBUTEROL NEB SOLN 5 MG/ML 20 ML/BOTTLE RESP TX SCH (11:00)
[2019-03-14 11:32] LABS: Basophils # 0.1 10*3/uL (0.0-0.2); Basophils % 0.7 % (0.0-0.8); Eosinophils # 0.6 10*3/uL (0.0-0.87); Eosinophils % 5.6 % (0.00-10.9); Hematocrit 35.5 VOL% (35.7-47.0); Hemoglobin 11.5 GM/DL (12.0-16.0); Immature Granulocytes % 0.9 %; Lymphocytes # 1.5 10*3/uL (1.4-4.0); Lymphocytes % 12.9 % (21.3-54.2); Mean Corpuscular HGB Conc 32.4 GM/DL (32-36); Mean Corpuscular Volume 93.9 FL (87-102); Mean Platelet Volume 10.5 FL (9.6-12.0); Monocytes % 11.6 % (1.7-12.7); Neutrophils % 68.3 % (38.7-73.9); Platelet Count 175 T/CUMM (130-400); Red Blood Count 3.78 MC/CUMM (3.8-5.5); Red Cell Distribution Width 13.7 % (9.3-17.3); White Blood Count 11.5 T/CUMM (4-12)
[2019-03-14 11:35] LABS: Apearance,Urine CLEAR (Clear); Bacteria,Urine Occasional /HPF (Few); Bilirubin,Urine Negative (Negative); Blood, Urine Negative (Negative); Glucose,Urine (UA) Negative (Negative); Hyaline Casts,Urine 9 /LPF (0-3); Ketones,Urine Negative (Negative); Mucus,Urine Occasional /LPF (Occasional); Nitrite,Urine Negative (Negative); Protein,Urine Negative; RBC,Urine 3 /HPF (0-4); Squamous Epithelial Cell,Urine Occasional /HPF (0-10); Urine Color Straw (Yellow); Urine Specific Gravity 1.006 (1.001-1.035); Urine Urobilinogen < 2.0 EU/DL (0.2-1.0); WBC,Urine 4 /HPF (0-6)
[2019-03-14 11:40] LABS: INR 0.9; PT Patient Result 10.2 SECS (9.6-12.2); Partial Thromboplastin Time 38.7 SECS (20.8-36.0)
[2019-03-14 11:53] LABS: Alanine Aminotransferase 12 U/L (13-56); Albumin 3.7 G/DL (3.4-5.0); Alkaline Phosphatase 72 U/L (45-117); Aspartate Amino Transferase 19 U/L (0-37); Blood Urea Nitrogen 53 MG/DL (7-18); Calcium 9.4 MG/DL (8.5-10.1); Glucose 93 MG/DL (74-106); Osmolality,Calculated 288.7 MOS/KG (273-304); Total Protein 7.2 G/DL (6.4-8.3); Troponin I < 0.015 NG/ML (0.00-0.045)
[2019-03-14] MEDS ORDERED: POTASSIUM BICARB EFFERVESCENT 25 MEQ TABLET PO ONE (11:58)
[2019-03-14] MEDS ORDERED: ONDANSETRON 4 MG/2 ML VIAL IV PRN (12:01)
[2019-03-14] MEDS ORDERED: GLUCAGON 1 MG VIAL IM PRN (12:01)
[2019-03-14] MEDS ORDERED: DEXTROSE 10% 25 GM/250 ML BAG IV PRN (12:01)
[2019-03-14] MEDS: ALBUTEROL/IPRATROPIUM 3 ML NEB RESP TX SCH ×2 (13:20→19:48)
[2019-03-14] MEDS: SODIUM CHLORIDE 0.45% 1,000 ML IV SCH ×2 (14:27→21:23)
[2019-03-14] MEDS: POTASSIUM CHLORIDE 8 MEQ CAPSULE PO SCH ×2 (14:58→21:15)
[2019-03-14] MEDS: INSULIN REGULAR 100 UNIT/ML SUBCUT SCH ×2 (15:46→21:33)
[2019-03-14] MEDS: methylPREDNISolone SOD SUC 125 MG/2 ML VIAL IV SCH (21:32)
[2019-03-14] MEDS: DILTIAZEM 60 MG TABLET PO SCH (21:32)
[2019-03-14] MEDS: diphenhydrAMINE CAP 25 MG CAPSULE PO PRN (22:06)
[2019-03-15] MEDS: ALBUTEROL/IPRATROPIUM 3 ML NEB RESP TX SCH ×4 (02:04→21:21)
[2019-03-15] MEDS: ACETAMINOPHEN 500 MG TABLET PO PRN (02:30)
[2019-03-15] MEDS: methylPREDNISolone SOD SUC 125 MG/2 ML VIAL IV SCH ×3 (04:34→21:13)
[2019-03-15] MEDS: diphenhydrAMINE CAP 25 MG CAPSULE PO PRN ×3 (04:47→21:23)
[2019-03-15] MEDS: SODIUM CHLORIDE 0.45% 1,000 ML IV SCH ×3 (05:24→21:13)
[2019-03-15 05:47] LABS: Basophils % 0.3 % (0.0-0.8); Eosinophils % 0.1 % (0.00-10.9); Hemoglobin 9.9 GM/DL (12.0-16.0); Immature Granulocytes % 1.3 %; Immature Granulocytes Absolute 0.18 #; Lymphocytes # 1.1 10*3/uL (1.4-4.0); Lymphocytes % 7.9 % (21.3-54.2); Mean Corpuscular HGB Conc 31.9 GM/DL (32-36); Mean Corpuscular Volume 93.9 FL (87-102); Mean Platelet Volume 10.5 FL (9.6-12.0); Monocytes % 2.5 % (1.7-12.7); Neutrophils % 87.9 % (38.7-73.9); Platelet Count 153 T/CUMM (130-400); Red Cell Distribution Width 13.4 % (9.3-17.3)
[2019-03-15 06:04] LABS: Calcium 8.6 MG/DL (8.5-10.1); Osmolality,Calculated 284.2 MOS/KG (273-304)
[2019-03-15] MEDS: PANTOPRAZOLE 40 MG TABLET PO SCH (08:37)
[2019-03-15] MEDS: ASPIRIN CHEW 81 MG TABLET PO SCH (08:37)
[2019-03-15] MEDS: DILTIAZEM 60 MG TABLET PO SCH ×2 (08:37→21:19)
[2019-03-15] MEDS: POTASSIUM CHLORIDE 8 MEQ CAPSULE PO SCH ×3 (08:37→23:07)
[2019-03-15] MEDS: INSULIN REGULAR 100 UNIT/ML SUBCUT SCH ×4 (08:37→21:30)
[2019-03-15] MEDS ORDERED: COLCHICINE 0.6 MG CAPSULE PO PRN (09:37)
[2019-03-15] MEDS ORDERED: BENZONATATE 100 MG CAPSULE PO PRN (09:37)
[2019-03-15] MEDS ORDERED: PROMETHAZINE 25 MG TABLET PO PRN (09:37)
[2019-03-15] MEDS ORDERED: ALLOPURINOL 100 MG TABLET PO PRN (09:37)
[2019-03-15] MEDS ORDERED: MECLIZINE 12.5 MG TABLET PO PRN (09:37)
[2019-03-15] MEDS ORDERED: NITROGLYCERIN SL 0.4 MG TABLET SL PRN (09:37)
[2019-03-15] MEDS ORDERED: MONTELUKAST 10 MG TABLET PO PRN (09:37)
[2019-03-15] MEDS ORDERED: ALBUTEROL 2.5 MG/3 ML NEB RESP TX PRN (13:00)
[2019-03-15] MEDS: POTASSIUM CHLORIDE 20 MEQ TABLET PO SCH ×2 (14:43→21:19)
[2019-03-15] MEDS: SILDENAFIL 20 MG TABLET PO SCH ×2 (14:44→21:18)
[2019-03-15] MEDS: SELEXIPAG PO SCH ×2 (21:16→21:17)
[2019-03-15] MEDS: FERROUS SULFATE 325 MG TABLET PO SCH (21:18)
[2019-03-15] MEDS: GABAPENTIN 100 MG CAPSULE PO SCH (21:18)
[2019-03-15] MEDS: CHOLECALCIFEROL 1,000 UNIT TABLET PO SCH (21:18)
[2019-03-15] MEDS: DOCUSATE SODIUM 100 MG CAPSULE PO SCH (21:19)
[2019-03-15] MEDS: BUDESONIDE 0.25 MG/2 ML NEB RESP TX SCH (21:21)
[2019-03-15] MEDS: CYCLOBENZAPRINE 10 MG TABLET PO PRN (21:23)
[2019-03-15] MEDS: METOPROLOL TARTRATE 25 MG TABLET PO SCH (23:07)
[2019-03-16] MEDS: ALBUTEROL/IPRATROPIUM 3 ML NEB RESP TX SCH ×4 (00:37→19:36)
[2019-03-16] MEDS: diphenhydrAMINE CAP 25 MG CAPSULE PO PRN ×3 (01:32→21:59)
[2019-03-16] MEDS: methylPREDNISolone SOD SUC 125 MG/2 ML VIAL IV SCH ×3 (04:38→21:58)
[2019-03-16] MEDS: SODIUM CHLORIDE 0.45% 1,000 ML IV SCH (04:57)
[2019-03-16] MEDS: BUDESONIDE 0.25 MG/2 ML NEB RESP TX SCH ×2 (07:50→19:36)
[2019-03-16] MEDS: INSULIN REGULAR 100 UNIT/ML SUBCUT SCH ×4 (10:21→22:01)
[2019-03-16] MEDS: SILDENAFIL 20 MG TABLET PO SCH ×3 (10:21→21:58)
[2019-03-16] MEDS: POTASSIUM CHLORIDE 20 MEQ TABLET PO SCH ×3 (10:22→21:59)
[2019-03-16] MEDS: DOCUSATE SODIUM 100 MG CAPSULE PO SCH ×2 (10:22→21:59)
[2019-03-16] MEDS: GABAPENTIN 100 MG CAPSULE PO SCH ×2 (10:22→21:59)
[2019-03-16] MEDS: MAGNESIUM GLUCONATE 500 MG TABLET PO SCH (10:22)
[2019-03-16] MEDS: CHOLECALCIFEROL 1,000 UNIT TABLET PO SCH ×2 (10:23→21:58)
[2019-03-16] MEDS: FERROUS SULFATE 325 MG TABLET PO SCH ×2 (10:23→21:58)
[2019-03-16] MEDS: ASPIRIN CHEW 81 MG TABLET PO SCH (10:23)
[2019-03-16] MEDS: POTASSIUM CHLORIDE 8 MEQ CAPSULE PO SCH ×3 (10:23→21:59)
[2019-03-16] MEDS: predniSONE 5 MG TABLET PO SCH (10:24)
[2019-03-16] MEDS: PANTOPRAZOLE 40 MG TABLET PO SCH (10:24)
[2019-03-16] MEDS: SPIRONOLACTONE 25 MG TABLET PO SCH (10:24)
[2019-03-16] MEDS: SELEXIPAG PO SCH ×4 (10:25→21:56)
[2019-03-16] MEDS: METOPROLOL TARTRATE 25 MG TABLET PO SCH ×2 (10:27→21:59)
[2019-03-16] MEDS: FUROSEMIDE 40 MG TABLET PO SCH (10:27)
[2019-03-16] MEDS: DILTIAZEM 60 MG TABLET PO SCH ×2 (10:27→21:59)
[2019-03-16] MEDS: LEVOFLOXACIN INJ 750 MG in PREMIX 1 EACH IV SCH (12:29)
[2019-03-16] MEDS: LINACLOTIDE 145 MCG CAPSULE PO SCH (12:43)
[2019-03-16] MEDS: ACETAMINOPHEN 500 MG TABLET PO PRN (16:40)
[2019-03-17] MEDS: ALBUTEROL/IPRATROPIUM 3 ML NEB RESP TX SCH ×4 (02:09→19:50)
[2019-03-17] MEDS: methylPREDNISolone SOD SUC 125 MG/2 ML VIAL IV SCH ×3 (04:41→14:42)
[2019-03-17] MEDS: BUDESONIDE 0.25 MG/2 ML NEB RESP TX SCH ×2 (07:50→19:50)
[2019-03-17] MEDS ORDERED: LINACLOTIDE 145 MCG CAPSULE PO SCH (09:00)
[2019-03-17] MEDS: SELEXIPAG PO SCH ×4 (09:22→21:22)
[2019-03-17] MEDS: FUROSEMIDE 40 MG TABLET PO SCH (09:23)
[2019-03-17] MEDS: POTASSIUM CHLORIDE 20 MEQ TABLET PO SCH ×3 (09:23→21:25)
[2019-03-17] MEDS: predniSONE 5 MG TABLET PO SCH (09:23)
[2019-03-17] MEDS: ASPIRIN CHEW 81 MG TABLET PO SCH (09:23)
[2019-03-17] MEDS: INSULIN REGULAR 100 UNIT/ML SUBCUT SCH ×4 (09:23→21:24)
[2019-03-17] MEDS: GABAPENTIN 100 MG CAPSULE PO SCH ×2 (09:24→21:24)
[2019-03-17] MEDS: DOCUSATE SODIUM 100 MG CAPSULE PO SCH ×2 (09:24→21:24)
[2019-03-17] MEDS: CHOLECALCIFEROL 1,000 UNIT TABLET PO SCH ×2 (09:24→21:25)
[2019-03-17] MEDS: METOPROLOL TARTRATE 25 MG TABLET PO SCH ×2 (09:24→21:24)
[2019-03-17] MEDS: POTASSIUM CHLORIDE 8 MEQ CAPSULE PO SCH ×3 (09:24→21:24)
[2019-03-17] MEDS: DILTIAZEM 60 MG TABLET PO SCH ×2 (09:25→21:25)
[2019-03-17] MEDS: MAGNESIUM GLUCONATE 500 MG TABLET PO SCH (09:25)
[2019-03-17] MEDS: SPIRONOLACTONE 25 MG TABLET PO SCH (09:26)
[2019-03-17] MEDS: SILDENAFIL 20 MG TABLET PO SCH ×3 (09:26→21:25)
[2019-03-17] MEDS: FERROUS SULFATE 325 MG TABLET PO SCH ×2 (09:26→21:25)
[2019-03-17] MEDS: PANTOPRAZOLE 40 MG TABLET PO SCH (09:26)
[2019-03-17] MEDS: diphenhydrAMINE CAP 25 MG CAPSULE PO PRN ×2 (11:55→21:25)
[2019-03-17 13:14] LABS: Basophils % 0.1 % (0.0-0.8); Hematocrit 30.8 VOL% (35.7-47.0); Hemoglobin 9.7 GM/DL (12.0-16.0); Immature Granulocytes % 3.2 %; Immature Granulocytes Absolute 0.49 #; Lymphocytes # 0.7 10*3/uL (1.4-4.0); Lymphocytes % 4.3 % (21.3-54.2); Mean Corpuscular HGB Conc 31.5 GM/DL (32-36); Mean Corpuscular Volume 94.8 FL (87-102); Mean Platelet Volume 10.4 FL (9.6-12.0); Monocytes % 2.4 % (1.7-12.7); Platelet Count 185 T/CUMM (130-400); Red Blood Count 3.25 MC/CUMM (3.8-5.5); Red Cell Distribution Width 13.5 % (9.3-17.3); White Blood Count 15.2 T/CUMM (4-12)
[2019-03-17 13:40] LABS: Albumin 3.1 G/DL (3.4-5.0); Bilirubin,Total 0.4 MG/DL (0.2-1.0); Calcium 8.7 MG/DL (8.5-10.1); Total Protein 6.3 G/DL (6.4-8.3)
[2019-03-17 14:22] LABS: Lymphocytes 2 % (20-55); Macrocytosis Slight; Segmented Neutrophils 97 % (50-85); Total Cells Counted 100
[2019-03-17 14:23] LABS: Burr Cells Slight; Platelet Estimate Normal
[2019-03-18] MEDS: methylPREDNISolone SOD SUC 125 MG/2 ML VIAL IV SCH ×2 (00:01→14:28)
[2019-03-18] MEDS: ALBUTEROL/IPRATROPIUM 3 ML NEB RESP TX SCH ×4 (01:05→19:45)
[2019-03-18] MEDS: BUDESONIDE 0.25 MG/2 ML NEB RESP TX SCH ×2 (06:54→19:46)
[2019-03-18] MEDS: INSULIN REGULAR 100 UNIT/ML SUBCUT SCH ×4 (07:33→23:32)
[2019-03-18] MEDS: MAGNESIUM GLUCONATE 500 MG TABLET PO SCH (08:51)
[2019-03-18] MEDS: CHOLECALCIFEROL 1,000 UNIT TABLET PO SCH ×2 (08:51→22:18)
[2019-03-18] MEDS: POTASSIUM CHLORIDE 8 MEQ CAPSULE PO SCH ×3 (08:51→22:17)
[2019-03-18] MEDS: LINACLOTIDE 145 MCG CAPSULE PO SCH (08:51)
[2019-03-18] MEDS: PANTOPRAZOLE 40 MG TABLET PO SCH (08:51)
[2019-03-18] MEDS: DILTIAZEM 60 MG TABLET PO SCH ×2 (08:51→22:13)
[2019-03-18] MEDS: POTASSIUM CHLORIDE 20 MEQ TABLET PO SCH ×3 (08:51→22:17)
[2019-03-18] MEDS: predniSONE 5 MG TABLET PO SCH (08:52)
[2019-03-18] MEDS: SPIRONOLACTONE 25 MG TABLET PO SCH (08:52)
[2019-03-18] MEDS: FUROSEMIDE 40 MG TABLET PO SCH (08:52)
[2019-03-18] MEDS: DOCUSATE SODIUM 100 MG CAPSULE PO SCH ×2 (08:52→22:14)
[2019-03-18] MEDS: ASPIRIN CHEW 81 MG TABLET PO SCH (08:52)
[2019-03-18] MEDS: FERROUS SULFATE 325 MG TABLET PO SCH ×2 (08:52→22:15)
[2019-03-18] MEDS: METOPROLOL TARTRATE 25 MG TABLET PO SCH ×2 (08:52→22:14)
[2019-03-18] MEDS: GABAPENTIN 100 MG CAPSULE PO SCH ×2 (08:53→22:15)
[2019-03-18] MEDS: SELEXIPAG PO SCH ×4 (08:56→22:19)
[2019-03-18] MEDS: diphenhydrAMINE CAP 25 MG CAPSULE PO PRN ×2 (09:00→22:16)
[2019-03-18] MEDS: LEVOFLOXACIN INJ 750 MG in PREMIX 1 EACH IV SCH (14:31)
[2019-03-18] MEDS: SILDENAFIL 20 MG TABLET PO SCH ×3 (14:36→22:15)
[2019-03-19] MEDS: ALBUTEROL/IPRATROPIUM 3 ML NEB RESP TX SCH ×3 (01:08→14:29)
[2019-03-19] MEDS: CYCLOBENZAPRINE 10 MG TABLET PO PRN (01:15)
[2019-03-19] MEDS: methylPREDNISolone SOD SUC 125 MG/2 ML VIAL IV SCH ×2 (03:18→13:00)
[2019-03-19] MEDS: BUDESONIDE 0.25 MG/2 ML NEB RESP TX SCH (07:59)
[2019-03-19] MEDS: INSULIN REGULAR 100 UNIT/ML SUBCUT SCH ×2 (08:05→12:59)
[2019-03-19] MEDS: SELEXIPAG PO SCH ×2 (08:50→08:51)
[2019-03-19] MEDS: DILTIAZEM 60 MG TABLET PO SCH (08:53)
[2019-03-19] MEDS: MAGNESIUM GLUCONATE 500 MG TABLET PO SCH (08:54)
[2019-03-19] MEDS: FERROUS SULFATE 325 MG TABLET PO SCH (08:54)
[2019-03-19] MEDS: CHOLECALCIFEROL 1,000 UNIT TABLET PO SCH (08:54)
[2019-03-19] MEDS: POTASSIUM CHLORIDE 8 MEQ CAPSULE PO SCH ×2 (08:54→14:43)
[2019-03-19] MEDS: SILDENAFIL 20 MG TABLET PO SCH ×2 (08:54→14:43)
[2019-03-19] MEDS: FUROSEMIDE 40 MG TABLET PO SCH (08:55)
[2019-03-19] MEDS: ASPIRIN CHEW 81 MG TABLET PO SCH (08:55)
[2019-03-19] MEDS: POTASSIUM CHLORIDE 20 MEQ TABLET PO SCH ×2 (08:55→14:43)
[2019-03-19] MEDS: DOCUSATE SODIUM 100 MG CAPSULE PO SCH (08:56)
[2019-03-19] MEDS: SPIRONOLACTONE 25 MG TABLET PO SCH (08:56)
[2019-03-19] MEDS: diphenhydrAMINE CAP 25 MG CAPSULE PO PRN ×2 (08:56→14:45)
[2019-03-19] MEDS: GABAPENTIN 100 MG CAPSULE PO SCH (08:56)
[2019-03-19] MEDS: predniSONE 5 MG TABLET PO SCH (08:56)
[2019-03-19] MEDS: METOPROLOL TARTRATE 25 MG TABLET PO SCH (08:56)
[2019-03-19] MEDS: PANTOPRAZOLE 40 MG TABLET PO SCH (08:56)
[2019-03-19 12:08] VITALS: BP 95/62
[2019-03-19] MEDS: ACETAMINOPHEN 500 MG TABLET PO PRN (14:45)
== END 2019-03-19 15:34 | disposition home health service (06) | DRG 194 ==
LOC: N.ED 10:31 → N.EDINP 12:00 → N.TELEN 13:38
PROVIDERS: ADMIT Family Medicine; ATTEND Family Medicine

== ENCOUNTER 2019-05-14 20:31 | Observation (INO) ==
[2019-05-14] MEDS ORDERED: ASPIRIN 325 MG TABLET PO STA (21:18)
[2019-05-14] MEDS ORDERED: NITROGLYCERIN SL 0.4 MG TABLET SL PRN (21:18)
[2019-05-14 21:28] LABS: Basophils # 0.1 10*3/uL (0.0-0.2); Eosinophils # 0.4 10*3/uL (0.0-0.87); Eosinophils % 4.6 % (0.00-10.9); Hematocrit 36.8 VOL% (35.7-47.0); Hemoglobin 12.1 GM/DL (12.0-16.0); Immature Granulocytes % 0.6 %; Immature Granulocytes Absolute 0.05 #; Lymphocytes % 21.7 % (21.3-54.2); Mean Corpuscular HGB Conc 32.9 GM/DL (32-36); Mean Platelet Volume 10.4 FL (9.6-12.0); Monocytes % 11.1 % (1.7-12.7); Platelet Count 168 T/CUMM (130-400)
[2019-05-14 21:47] LABS: PT Patient Result 10.7 SECS (9.6-12.2)
[2019-05-14 21:55] LABS: Alanine Aminotransferase 19 U/L (13-56); Albumin 4.1 G/DL (3.4-5.0); Alkaline Phosphatase 75 U/L (45-117); Aspartate Amino Transferase 23 U/L (0-37); Bilirubin,Total < 0.39 MG/DL (0.2-1.0); Blood Urea Nitrogen 63 MG/DL (7-18); Calcium 9.1 MG/DL (8.5-10.1); Estimated Glom Filtration Rate 28 ML/MIN; Glucose 101 MG/DL (74-106); Osmolality,Calculated 290.8 MOS/KG (273-304); Total Protein 6.9 G/DL (6.4-8.3)
[2019-05-14] MEDS ORDERED: DEXTROSE 50% 25 GM/50 ML VIAL IV PRN (22:31)
[2019-05-14] MEDS ORDERED: POTASSIUM CHLORIDE 20 MEQ TABLET PO PRN (22:31)
[2019-05-14] MEDS ORDERED: ZALEPLON 5 MG CAPSULE PO PRN (22:31)
[2019-05-14] MEDS ORDERED: GLUCAGON 1 MG VIAL IM PRN (22:31)
[2019-05-14] MEDS ORDERED: GABAPENTIN 100 MG CAPSULE PO ONE (23:09)
[2019-05-14] MEDS ORDERED: ACETAMINOPHEN 325 MG TABLET ONE (23:11)
[2019-05-14] MEDS ORDERED: ACETAMINOPHEN 325 MG TABLET PO ONE (23:13)
[2019-05-15] MEDS ORDERED: guaiFENesin/DM ER 600-30 MG TABLET PO PRN (03:52)
[2019-05-15] MEDS ORDERED: SODIUM CHLORIDE 0.9% 1,000 ML IV SCH (04:00)
[2019-05-15 05:39] LABS: CKMB % 3.4 %; Risk Ratio 4.31; Thyroid Stimulating Hormone 0.066 uIU/ml (0.358-3.74); VLDL CHOLESTEROL 17.2 MG/DL
[2019-05-15 06:10] LABS: Troponin I 0.053 NG/ML (0.00-0.045)
[2019-05-15] MEDS ORDERED: ASPIRIN EC 325 MG TABLET PO SCH (09:00)
[2019-05-15] MEDS ORDERED: FLUTICASONE 50 MCG NASAL SPRAY 16 GM BOTTLE BOTH NARES SCH (09:00)
[2019-05-15 12:50] VITALS: BP 99/66
== END 2019-05-15 14:10 | disposition home or self-care (01) ==
LOC: N.ED 20:31 → N.EDINP 20:31 → SUATTDRO 22:31 → N.2W 23:48
PROVIDERS: ADMIT Internal Medicine; ATTEND Family Medicine

== ENCOUNTER 2020-10-10 12:10 | Inpatient (IN) ==
[2020-10-10] MEDS ORDERED: SODIUM CHLORIDE 0.9% 1,000 ML IV STA (13:07)
[2020-10-10 13:43] LABS: Basophils # 0.1 10*3/uL (0.0-0.2); Basophils % 0.6 % (0.0-0.8); Eosinophils # 0.2 10*3/uL (0.0-0.87); Eosinophils % 1.6 % (0.00-10.9); Hematocrit 47.6 VOL% (35.7-47.0); Hemoglobin 15.5 GM/DL (12.0-16.0); Immature Granulocytes % 1.5 %; Immature Granulocytes Absolute 0.18 #; Lymphocytes % 8.9 % (21.3-54.2); Mean Corpuscular HGB Conc 32.6 GM/DL (32-36); Mean Corpuscular Volume 94.6 FL (87-102); Mean Platelet Volume 11.5 FL (9.6-12.0); Monocytes % 7.9 % (1.7-12.7); Neutrophils % 79.5 % (38.7-73.9); Platelet Count 133 T/CUMM (130-400); Red Blood Count 5.03 MC/CUMM (3.8-5.5); Red Cell Distribution Width 13.8 % (9.3-17.3); White Blood Count 11.8 T/CUMM (4-12)
[2020-10-10 13:56] LABS: Bilirubin,Urine Negative (Negative); Blood, Urine Negative (Negative); Glucose,Urine (UA) Negative (Negative); Hyaline Casts,Urine 46 /LPF (0-3); Ketones,Urine Negative (Negative); Mucus,Urine Occasional /LPF (Occasional); Nitrite,Urine Negative (Negative); Protein,Urine Negative; RBC,Urine <1 /HPF (0-4); Squamous Epithelial Cell,Urine Occasional /HPF (0-10); Urine Appearance CLEAR (Clear); Urine Color Yellow (Yellow); Urine Specific Gravity 1.006 (1.001-1.035); Urine Urobilinogen < 2.0 EU/DL (0.2-1.0); WBC,Urine <1 /HPF (0-6)
[2020-10-10 14:04] LABS: Albumin 3.5 G/DL (3.4-5.0); Bilirubin,Total 0.4 MG/DL (0.2-1.0); Osmolality,Calculated 276.9 MOS/KG (273-304); Total Protein 6.2 G/DL (6.4-8.2)
[2020-10-10] MEDS ORDERED: GLUCAGON 1 MG VIAL IM PRN (16:54)
[2020-10-10] MEDS ORDERED: ONDANSETRON 4 MG/2 ML VIAL IV PRN (16:54)
[2020-10-10] MEDS ORDERED: DEXTROSE 50% 25 GM/50 ML VIAL IV PRN (16:54)
[2020-10-10] MEDS ORDERED: allopurinoL 100 MG TABLET PO PRN (16:55)
[2020-10-10] MEDS ORDERED: NITROGLYCERIN SL 0.4 MG TABLET SL PRN (16:55)
[2020-10-10] MEDS ORDERED: PROMETHAZINE 25 MG TABLET PO PRN (16:55)
[2020-10-10] MEDS ORDERED: MAGNESIUM SULF RIDER 4 GM in PREMIX 1 EACH IV PRN (16:59)
[2020-10-10] MEDS ORDERED: MAGNESIUM SULF RIDER 2 GM in PREMIX 1 EACH IV PRN (16:59)
[2020-10-10] MEDS: SODIUM CHLORIDE 0.9% 1,000 ML IV SCH (17:16)
[2020-10-10] MEDS ORDERED: ALBUTEROL/IPRATROPIUM 3 ML NEB RESP TX ONE (19:16)
[2020-10-10] MEDS: ALBUTEROL/IPRATROPIUM 3 ML NEB RESP TX SCH (20:18)
[2020-10-10] MEDS: BUDESONIDE 0.25 MG/2 ML NEB RESP TX SCH (20:18)
[2020-10-10] MEDS ORDERED: FUROSEMIDE 40 MG TABLET PO SCH (21:00)
[2020-10-10] MEDS ORDERED: METOPROLOL TARTRATE 25 MG TABLET PO SCH (21:00)
[2020-10-10] MEDS: DILTIAZEM 30 MG TABLET PO SCH ×2 (22:51→23:28)
[2020-10-10] MEDS: SILDENAFIL 20 MG TABLET PO SCH (22:56)
[2020-10-10] MEDS: SODIUM POLYSTYRENE SULFATE 15 GM/60 ML BOTTLE PO SCH (23:07)
[2020-10-10] MEDS: PANTOPRAZOLE 40 MG TABLET PO SCH (23:33)
[2020-10-10] MEDS: DOCUSATE SODIUM 100 MG CAPSULE PO SCH (23:37)
[2020-10-11 00:10] LABS: Calcium 8.7 MG/DL (8.5-10.1); Osmolality,Calculated 279.7 MOS/KG (273-304); Potassium 5.6 MMOL/L (3.5-5.1)
[2020-10-11] MEDS: SODIUM CHLORIDE 0.9% 1,000 ML IV SCH ×3 (02:58→16:41)
[2020-10-11 04:18] LABS: Basophils # 0.1 10*3/uL (0.0-0.2); Basophils % 0.6 % (0.0-0.8); Eosinophils # 0.4 10*3/uL (0.0-0.87); Eosinophils % 3.5 % (0.00-10.9); Hematocrit 46.1 VOL% (35.7-47.0); Hemoglobin 15.1 GM/DL (12.0-16.0); Immature Granulocytes % 0.8 %; Immature Granulocytes Absolute 0.09 #; Lymphocytes # 2.5 10*3/uL (1.4-4.0); Lymphocytes % 23.1 % (21.3-54.2); Mean Corpuscular HGB Conc 32.8 GM/DL (32-36); Mean Corpuscular Volume 94.5 FL (87-102); Mean Platelet Volume 11.4 FL (9.6-12.0); Monocytes % 7.1 % (1.7-12.7); Neutrophils % 64.9 % (38.7-73.9); Platelet Count 156 T/CUMM (130-400); Red Blood Count 4.88 MC/CUMM (3.8-5.5); Red Cell Distribution Width 13.5 % (9.3-17.3); White Blood Count 10.7 T/CUMM (4-12)
[2020-10-11 04:48] LABS: Albumin 3.6 G/DL (3.4-5.0); Bilirubin,Total 0.9 MG/DL (0.2-1.0); Calcium 8.8 MG/DL (8.5-10.1); Osmolality,Calculated 281.4 MOS/KG (273-304); Potassium 5.9 MMOL/L (3.5-5.1); Total Protein 6.1 G/DL (6.4-8.2)
[2020-10-11] MEDS: BUDESONIDE 0.25 MG/2 ML NEB RESP TX SCH ×2 (07:50→19:39)
[2020-10-11] MEDS: ALBUTEROL/IPRATROPIUM 3 ML NEB RESP TX SCH ×2 (07:50→19:39)
[2020-10-11] MEDS ORDERED: MAGNESIUM SULF RIDER 2 GM in PREMIX 1 EACH IV STA (08:51)
[2020-10-11] MEDS ORDERED: PANTOPRAZOLE 40 MG TABLET PO SCH (09:00)
[2020-10-11] MEDS ORDERED: SPIRONOLACTONE 100 MG TABLET PO SCH (09:00)
[2020-10-11] MEDS ORDERED: FUROSEMIDE 40 MG TABLET ONE (09:07)
[2020-10-11] MEDS ORDERED: METOPROLOL TARTRATE 25 MG TABLET ONE (09:07)
[2020-10-11] MEDS: ASPIRIN CHEW 81 MG TABLET PO SCH (09:40)
[2020-10-11] MEDS: SODIUM POLYSTYRENE SULFATE 15 GM/60 ML BOTTLE PO SCH ×2 (09:40→20:42)
[2020-10-11] MEDS: CHOLECALCIFEROL 1,000 UNIT TABLET PO SCH (09:40)
[2020-10-11] MEDS: PANTOPRAZOLE 40 MG TABLET PO SCH ×2 (09:40→20:42)
[2020-10-11] MEDS: DULoxetine 30 MG CAPSULE PO SCH (09:40)
[2020-10-11] MEDS: DOCUSATE SODIUM 100 MG CAPSULE PO SCH ×2 (09:40→20:42)
[2020-10-11] MEDS: ASCORBIC ACID 500 MG TABLET PO SCH ×2 (10:00→20:42)
[2020-10-11] MEDS ORDERED: MONTELUKAST 10 MG TABLET PO PRN (11:30)
[2020-10-11] MEDS ORDERED: CALCIUM GLUCONATE 1,000 MG in SODIUM CHLORIDE 0.9% 100 ML IV ONE (11:33)
[2020-10-11] MEDS ORDERED: DEXTROSE 50% 25 GM/50 ML VIAL IV STA (11:34)
[2020-10-11] MEDS ORDERED: INSULIN REGULAR 100 UNIT/ML IV STA (11:36)
[2020-10-11] MEDS ORDERED: CALCIUM GLUCONATE 1,000 MG/10 ML VIAL IV ONE (11:57)
[2020-10-11] MEDS ORDERED: ALBUTEROL 2.5 MG/3 ML NEB RESP TX PRN (13:05)
[2020-10-11] MEDS: INSULIN LISPRO 100 UNIT/ML SUBCUT SCH ×4 (13:33→20:43)
[2020-10-11] MEDS: UPTRAVI PO SCH ×2 (13:33→20:43)
[2020-10-11] MEDS: SILDENAFIL 20 MG TABLET PO SCH (13:35)
[2020-10-11 14:55] LABS: Calcium 8.5 MG/DL (8.5-10.1); Osmolality,Calculated 277.5 MOS/KG (273-304)
[2020-10-11] MEDS ORDERED: DIGOXIN 0.125 MG TABLET PO SCH (16:55)
[2020-10-11] MEDS: diphenhydrAMINE CAP 25 MG CAPSULE PO PRN (17:53)
[2020-10-12] MEDS: SODIUM CHLORIDE 0.9% 1,000 ML IV SCH ×2 (00:35→09:38)
[2020-10-12 05:46] LABS: Basophils # 0.1 10*3/uL (0.0-0.2); Basophils % 0.7 % (0.0-0.8); Eosinophils # 0.5 10*3/uL (0.0-0.87); Eosinophils % 4.8 % (0.00-10.9); Hematocrit 43.6 VOL% (35.7-47.0); Hemoglobin 13.9 GM/DL (12.0-16.0); Immature Granulocytes % 1.2 %; Immature Granulocytes Absolute 0.12 #; Lymphocytes # 2.2 10*3/uL (1.4-4.0); Lymphocytes % 21.3 % (21.3-54.2); Mean Corpuscular HGB Conc 31.9 GM/DL (32-36); Mean Corpuscular Volume 95.4 FL (87-102); Mean Platelet Volume 11.2 FL (9.6-12.0); Monocytes % 10.6 % (1.7-12.7); NRBC # 0.02 10*3/uL; Neutrophils % 61.4 % (38.7-73.9); Platelet Count 137 T/CUMM (130-400); Red Blood Count 4.57 MC/CUMM (3.8-5.5); Red Cell Distribution Width 13.8 % (9.3-17.3); White Blood Count 10.1 T/CUMM (4-12)
[2020-10-12 06:05] LABS: Platelet Estimate Adequate
[2020-10-12 06:06] LABS: Albumin 3.1 G/DL (3.4-5.0); Bilirubin,Total 1.4 MG/DL (0.2-1.0); Calcium 8.2 MG/DL (8.5-10.1); Osmolality,Calculated 275.5 MOS/KG (273-304); Potassium 4.4 MMOL/L (3.5-5.1); Total Protein 5.3 G/DL (6.4-8.2)
[2020-10-12 06:07] LABS: Risk Ratio 4.09; VLDL CHOLESTEROL 20.6 MG/DL
[2020-10-12] MEDS: BUDESONIDE 0.25 MG/2 ML NEB RESP TX SCH ×2 (07:57→19:40)
[2020-10-12] MEDS: ALBUTEROL/IPRATROPIUM 3 ML NEB RESP TX SCH ×2 (07:57→19:40)
[2020-10-12] MEDS ORDERED: MAGNESIUM SULF RIDER 2 GM in PREMIX 1 EACH IV ONE ×2 (08:35→16:00)
[2020-10-12] MEDS: ASCORBIC ACID 500 MG TABLET PO SCH ×2 (09:36→21:01)
[2020-10-12] MEDS: ASPIRIN CHEW 81 MG TABLET PO SCH (09:36)
[2020-10-12] MEDS: PANTOPRAZOLE 40 MG TABLET PO SCH ×2 (09:36→21:02)
[2020-10-12] MEDS: CHOLECALCIFEROL 1,000 UNIT TABLET PO SCH (09:36)
[2020-10-12] MEDS: DULoxetine 30 MG CAPSULE PO SCH (09:36)
[2020-10-12] MEDS: MAGNESIUM OXIDE 400 MG TABLET PO SCH (09:36)
[2020-10-12] MEDS: DOCUSATE SODIUM 100 MG CAPSULE PO SCH ×2 (09:37→21:02)
[2020-10-12] MEDS: SODIUM POLYSTYRENE SULFATE 15 GM/60 ML BOTTLE PO SCH ×2 (09:37→21:02)
[2020-10-12] MEDS: predniSONE 5 MG TABLET PO SCH (09:37)
[2020-10-12] MEDS: INSULIN LISPRO 100 UNIT/ML SUBCUT SCH ×4 (09:38→21:02)
[2020-10-12] MEDS: UPTRAVI PO SCH ×2 (11:09→21:25)
[2020-10-12] MEDS: DIGOXIN 0.125 MG TABLET PO SCH (12:42)
[2020-10-12] MEDS ORDERED: SODIUM PHOSPHATE ENEMA 133 ML BOTTLE RECTAL PRN (16:08)
[2020-10-12] MEDS ORDERED: SODIUM CHLORIDE 0.9% 1,000 ML IV SCH (16:30)
[2020-10-12] MEDS: diphenhydrAMINE CAP 25 MG CAPSULE PO PRN (21:01)
[2020-10-12] MEDS: BISACODYL 10 MG SUPP RECTAL PRN (21:25)
[2020-10-13] MEDS: BUDESONIDE 0.25 MG/2 ML NEB RESP TX SCH ×2 (07:15→19:25)
[2020-10-13] MEDS: ALBUTEROL/IPRATROPIUM 3 ML NEB RESP TX SCH ×2 (07:15→19:25)
[2020-10-13 07:17] LABS: Basophils % 0.5 % (0.0-0.8); Eosinophils # 0.4 10*3/uL (0.0-0.87); Eosinophils % 4.2 % (0.00-10.9); Hematocrit 38.6 VOL% (35.7-47.0); Hemoglobin 12.9 GM/DL (12.0-16.0); Immature Granulocytes % 0.9 %; Immature Granulocytes Absolute 0.08 #; Lymphocytes # 1.1 10*3/uL (1.4-4.0); Lymphocytes % 12.9 % (21.3-54.2); Mean Corpuscular HGB Conc 33.4 GM/DL (32-36); Mean Corpuscular Volume 91.9 FL (87-102); Mean Platelet Volume 10.2 FL (9.6-12.0); Monocytes % 10.8 % (1.7-12.7); Neutrophils % 70.7 % (38.7-73.9); Platelet Count 108 T/CUMM (130-400); Red Cell Distribution Width 13.8 % (9.3-17.3); White Blood Count 8.9 T/CUMM (4-12)
[2020-10-13 07:28] LABS: Calcium 8.4 MG/DL (8.5-10.1); Osmolality,Calculated 273.2 MOS/KG (273-304); Potassium 3.5 MMOL/L (3.5-5.1)
[2020-10-13 07:48] LABS: Hypochromasia 1+; Microcytosis 1+
[2020-10-13 07:49] LABS: Ovalocytes Slight; Platelet Estimate Decreased
[2020-10-13] MEDS ORDERED: POTASSIUM CHLORIDE 20 MEQ TABLET PO ONE (08:51)
[2020-10-13] MEDS ORDERED: DIGOXIN 0.5 MG/2 ML AMP IV ONE (08:54)
[2020-10-13] MEDS: INSULIN LISPRO 100 UNIT/ML SUBCUT SCH ×4 (09:33→20:47)
[2020-10-13] MEDS: MAGNESIUM OXIDE 400 MG TABLET PO SCH (09:35)
[2020-10-13] MEDS: DULoxetine 30 MG CAPSULE PO SCH (09:36)
[2020-10-13] MEDS: CHOLECALCIFEROL 1,000 UNIT TABLET PO SCH (09:36)
[2020-10-13] MEDS: DOCUSATE SODIUM 100 MG CAPSULE PO SCH ×2 (09:36→20:41)
[2020-10-13] MEDS: PANTOPRAZOLE 40 MG TABLET PO SCH ×2 (09:36→20:41)
[2020-10-13] MEDS: ASPIRIN CHEW 81 MG TABLET PO SCH (09:36)
[2020-10-13] MEDS: ASCORBIC ACID 500 MG TABLET PO SCH ×2 (09:36→20:41)
[2020-10-13] MEDS: predniSONE 5 MG TABLET PO SCH (09:37)
[2020-10-13] MEDS: ACETAMINOPHEN 325 MG TABLET PO PRN (09:39)
[2020-10-13] MEDS: UPTRAVI PO SCH ×2 (09:41→20:41)
[2020-10-13] MEDS ORDERED: FUROSEMIDE 20 MG/2 ML VIAL IV PRN (11:40)
[2020-10-13] MEDS: SODIUM POLYSTYRENE SULFATE 15 GM/60 ML BOTTLE PO SCH (12:31)
[2020-10-13] MEDS: DIGOXIN 0.125 MG TABLET PO SCH (13:15)
[2020-10-13] MEDS: PIPERACILLIN/TAZOBACTAM 3,375 MG in SODIUM CHLORIDE 0.9% 100 ML IV SCH ×2 (15:50→23:30)
[2020-10-13] MEDS: diphenhydrAMINE CAP 25 MG CAPSULE PO PRN (20:41)
[2020-10-13] MEDS ORDERED: POTASSIUM CHLORIDE 20 MEQ TABLET PO SCH (21:00)
[2020-10-13] MEDS ORDERED: DILTIAZEM 25 MG/5 ML VIAL IV ONE (23:43)
[2020-10-14 05:22] LABS: Basophils # 0.1 10*3/uL (0.0-0.2); Basophils % 0.6 % (0.0-0.8); Eosinophils # 0.5 10*3/uL (0.0-0.87); Eosinophils % 4.3 % (0.00-10.9); Hematocrit 41.5 VOL% (35.7-47.0); Hemoglobin 13.4 GM/DL (12.0-16.0); Immature Granulocytes % 0.8 %; Immature Granulocytes Absolute 0.08 #; Lymphocytes # 1.3 10*3/uL (1.4-4.0); Mean Corpuscular HGB Conc 32.3 GM/DL (32-36); Mean Corpuscular Volume 95.4 FL (87-102); Mean Platelet Volume 11.2 FL (9.6-12.0); Monocytes % 9.2 % (1.7-12.7); Neutrophils % 73.1 % (38.7-73.9); Platelet Count 129 T/CUMM (130-400); Red Blood Count 4.35 MC/CUMM (3.8-5.5); White Blood Count 10.5 T/CUMM (4-12)
[2020-10-14 05:35] LABS: Calcium 8.8 MG/DL (8.5-10.1); Osmolality,Calculated 264.7 MOS/KG (273-304); Potassium 4.1 MMOL/L (3.5-5.1)
[2020-10-14 05:58] LABS: Hypochromasia Slight; Microcytosis 1+; Ovalocytes Slight
[2020-10-14 05:59] LABS: Platelet Estimate Adequate
[2020-10-14] MEDS: PIPERACILLIN/TAZOBACTAM 3,375 MG in SODIUM CHLORIDE 0.9% 100 ML IV SCH ×3 (06:20→23:40)
[2020-10-14] MEDS: ALBUTEROL/IPRATROPIUM 3 ML NEB RESP TX SCH ×2 (07:44→18:54)
[2020-10-14] MEDS: BUDESONIDE 0.25 MG/2 ML NEB RESP TX SCH ×2 (07:44→18:54)
[2020-10-14] MEDS: INSULIN LISPRO 100 UNIT/ML SUBCUT SCH ×4 (08:11→22:44)
[2020-10-14] MEDS: DULoxetine 30 MG CAPSULE PO SCH (08:21)
[2020-10-14] MEDS: MAGNESIUM OXIDE 400 MG TABLET PO SCH (08:21)
[2020-10-14] MEDS: DOCUSATE SODIUM 100 MG CAPSULE PO SCH ×2 (08:22→20:39)
[2020-10-14] MEDS: ASPIRIN CHEW 81 MG TABLET PO SCH (08:22)
[2020-10-14] MEDS: PANTOPRAZOLE 40 MG TABLET PO SCH ×2 (08:22→20:39)
[2020-10-14] MEDS: predniSONE 5 MG TABLET PO SCH (08:22)
[2020-10-14] MEDS: UPTRAVI PO SCH ×2 (08:23→20:41)
[2020-10-14] MEDS: CHOLECALCIFEROL 1,000 UNIT TABLET PO SCH (08:25)
[2020-10-14] MEDS: ASCORBIC ACID 500 MG TABLET PO SCH ×2 (08:25→20:38)
[2020-10-14] MEDS: diphenhydrAMINE CAP 25 MG CAPSULE PO PRN ×2 (08:28→20:38)
[2020-10-14] MEDS: DILTIAZEM 30 MG TABLET PO SCH ×2 (15:00→20:39)
[2020-10-14] MEDS: BISACODYL 10 MG SUPP RECTAL PRN (16:15)
[2020-10-14] MEDS: LINACLOTIDE 145 MCG CAPSULE PO PRN (18:17)
[2020-10-14] MEDS ORDERED: DILTIAZEM 25 MG/5 ML VIAL IV STA (22:50)
[2020-10-15 05:21] LABS: Basophils % 0.5 % (0.0-0.8); Eosinophils # 0.6 10*3/uL (0.0-0.87); Hematocrit 37.7 VOL% (35.7-47.0); Hemoglobin 12.5 GM/DL (12.0-16.0); Immature Granulocytes % 1.1 %; Immature Granulocytes Absolute 0.09 #; Lymphocytes % 12.3 % (21.3-54.2); Mean Corpuscular HGB Conc 33.2 GM/DL (32-36); Mean Corpuscular Volume 95.9 FL (87-102); Monocytes % 11.2 % (1.7-12.7); Neutrophils % 67.9 % (38.7-73.9); Red Blood Count 3.93 MC/CUMM (3.8-5.5); Red Cell Distribution Width 14.4 % (9.3-17.3); White Blood Count 8.2 T/CUMM (4-12)
[2020-10-15 05:32] LABS: Calcium 8.2 MG/DL (8.5-10.1); Osmolality,Calculated 268.4 MOS/KG (273-304); Potassium 4.2 MMOL/L (3.5-5.1)
[2020-10-15 06:17] LABS: Platelet Count 108 T/CUMM (130-400)
[2020-10-15] MEDS: BUDESONIDE 0.25 MG/2 ML NEB RESP TX SCH ×3 (06:30→19:40)
[2020-10-15] MEDS: PIPERACILLIN/TAZOBACTAM 3,375 MG in SODIUM CHLORIDE 0.9% 100 ML IV SCH ×2 (06:30→16:00)
[2020-10-15 06:54] LABS: Hypochromasia 1+; Platelet Estimate Decreased
[2020-10-15 06:55] LABS: Ovalocytes 1+; Polychromasia Few
[2020-10-15] MEDS: ALBUTEROL/IPRATROPIUM 3 ML NEB RESP TX SCH ×2 (07:36→19:40)
[2020-10-15] MEDS: INSULIN LISPRO 100 UNIT/ML SUBCUT SCH ×4 (09:08→22:06)
[2020-10-15] MEDS: DULoxetine 30 MG CAPSULE PO SCH (09:09)
[2020-10-15] MEDS: DILTIAZEM 30 MG TABLET PO SCH ×3 (09:09→22:01)
[2020-10-15] MEDS: ASCORBIC ACID 500 MG TABLET PO SCH ×2 (09:09→22:02)
[2020-10-15] MEDS: MAGNESIUM OXIDE 400 MG TABLET PO SCH (09:09)
[2020-10-15] MEDS: predniSONE 5 MG TABLET PO SCH (09:09)
[2020-10-15] MEDS: PANTOPRAZOLE 40 MG TABLET PO SCH ×2 (09:09→22:02)
[2020-10-15] MEDS: DOCUSATE SODIUM 100 MG CAPSULE PO SCH ×2 (09:09→22:02)
[2020-10-15] MEDS: CHOLECALCIFEROL 1,000 UNIT TABLET PO SCH (09:10)
[2020-10-15] MEDS: ASPIRIN CHEW 81 MG TABLET PO SCH (09:10)
[2020-10-15] MEDS: UPTRAVI PO SCH ×2 (09:10→22:06)
[2020-10-15] MEDS: diphenhydrAMINE CAP 25 MG CAPSULE PO PRN ×2 (09:15→22:05)
[2020-10-15] MEDS: DIGOXIN 0.125 MG TABLET PO SCH (12:39)
[2020-10-16] MEDS: PIPERACILLIN/TAZOBACTAM 3,375 MG in SODIUM CHLORIDE 0.9% 100 ML IV SCH ×3 (03:51→18:16)
[2020-10-16] MEDS: diphenhydrAMINE CAP 25 MG CAPSULE PO PRN ×2 (04:00→11:57)
[2020-10-16 06:05] LABS: Basophils % 0.5 % (0.0-0.8); Eosinophils # 0.5 10*3/uL (0.0-0.87); Eosinophils % 6.7 % (0.00-10.9); Hematocrit 35.3 VOL% (35.7-47.0); Hemoglobin 11.3 GM/DL (12.0-16.0); Immature Granulocytes % 1.2 %; Immature Granulocytes Absolute 0.09 #; Lymphocytes # 0.9 10*3/uL (1.4-4.0); Lymphocytes % 12.8 % (21.3-54.2); Mean Corpuscular Volume 97.2 FL (87-102); Mean Platelet Volume 10.7 FL (9.6-12.0); Monocytes % 10.1 % (1.7-12.7); Neutrophils % 68.7 % (38.7-73.9); Platelet Count 120 T/CUMM (130-400); Red Blood Count 3.63 MC/CUMM (3.8-5.5); Red Cell Distribution Width 14.4 % (9.3-17.3); White Blood Count 7.3 T/CUMM (4-12)
[2020-10-16 06:25] LABS: Calcium 8.3 MG/DL (8.5-10.1); Osmolality,Calculated 260.9 MOS/KG (273-304); Potassium 3.8 MMOL/L (3.5-5.1)
[2020-10-16 06:32] LABS: Burr Cells Slight; Ovalocytes Slight
[2020-10-16 06:33] LABS: Microcytosis Slight
[2020-10-16] MEDS: ALBUTEROL/IPRATROPIUM 3 ML NEB RESP TX SCH ×2 (07:35→19:17)
[2020-10-16] MEDS: BUDESONIDE 0.25 MG/2 ML NEB RESP TX SCH ×2 (07:35→19:17)
[2020-10-16] MEDS: INSULIN LISPRO 100 UNIT/ML SUBCUT SCH ×4 (08:21→21:21)
[2020-10-16] MEDS: CHOLECALCIFEROL 1,000 UNIT TABLET PO SCH (08:55)
[2020-10-16] MEDS: ASPIRIN CHEW 81 MG TABLET PO SCH (08:55)
[2020-10-16] MEDS: UPTRAVI PO SCH ×2 (08:55→21:21)
[2020-10-16] MEDS: PANTOPRAZOLE 40 MG TABLET PO SCH ×2 (08:55→21:20)
[2020-10-16] MEDS: DULoxetine 30 MG CAPSULE PO SCH (08:55)
[2020-10-16] MEDS: DILTIAZEM 30 MG TABLET PO SCH ×3 (08:55→21:19)
[2020-10-16] MEDS: DOCUSATE SODIUM 100 MG CAPSULE PO SCH ×2 (08:55→21:18)
[2020-10-16] MEDS: MAGNESIUM OXIDE 400 MG TABLET PO SCH (08:55)
[2020-10-16] MEDS: ASCORBIC ACID 500 MG TABLET PO SCH ×2 (08:55→21:18)
[2020-10-16] MEDS: predniSONE 5 MG TABLET PO SCH (10:32)
[2020-10-16] MEDS: DIGOXIN 0.125 MG TABLET PO SCH (12:00)
[2020-10-16] MEDS: DEXTROMETHORPHAN ER 6 MG/ML 90 ML/BOTTLE PO PRN ×2 (16:22→21:23)
[2020-10-16] MEDS: LINACLOTIDE 145 MCG CAPSULE PO PRN (21:23)
[2020-10-17] MEDS: diphenhydrAMINE CAP 25 MG CAPSULE PO PRN (02:08)
[2020-10-17] MEDS: PIPERACILLIN/TAZOBACTAM 3,375 MG in SODIUM CHLORIDE 0.9% 100 ML IV SCH ×2 (03:22→11:55)
[2020-10-17 05:49] LABS: Basophils % 0.5 % (0.0-0.8); Eosinophils # 0.5 10*3/uL (0.0-0.87); Eosinophils % 6.8 % (0.00-10.9); Hemoglobin 11.6 GM/DL (12.0-16.0); Immature Granulocytes % 1.3 %; Mean Corpuscular HGB Conc 33.1 GM/DL (32-36); Mean Corpuscular Volume 94.3 FL (87-102); Mean Platelet Volume 10.5 FL (9.6-12.0); Monocytes % 9.1 % (1.7-12.7); Neutrophils % 70.3 % (38.7-73.9); Platelet Count 103 T/CUMM (130-400); Red Blood Count 3.71 MC/CUMM (3.8-5.5); Red Cell Distribution Width 14.5 % (9.3-17.3); White Blood Count 7.9 T/CUMM (4-12)
[2020-10-17 06:08] LABS: Calcium 8.7 MG/DL (8.5-10.1); Osmolality,Calculated 263.8 MOS/KG (273-304)
[2020-10-17 06:25] LABS: Burr Cells Slight; Hypochromasia Slight; Ovalocytes Slight; Platelet Estimate Decreased
[2020-10-17 06:26] LABS: Microcytosis Slight
[2020-10-17] MEDS: ALBUTEROL/IPRATROPIUM 3 ML NEB RESP TX SCH (07:22)
[2020-10-17] MEDS: BUDESONIDE 0.25 MG/2 ML NEB RESP TX SCH (07:23)
[2020-10-17] MEDS: INSULIN LISPRO 100 UNIT/ML SUBCUT SCH ×2 (08:16→11:58)
[2020-10-17] MEDS: DULoxetine 30 MG CAPSULE PO SCH (08:30)
[2020-10-17] MEDS: predniSONE 5 MG TABLET PO SCH (08:31)
[2020-10-17] MEDS: DOCUSATE SODIUM 100 MG CAPSULE PO SCH (08:31)
[2020-10-17] MEDS: ASCORBIC ACID 500 MG TABLET PO SCH (08:31)
[2020-10-17] MEDS: CHOLECALCIFEROL 1,000 UNIT TABLET PO SCH (08:31)
[2020-10-17] MEDS: DILTIAZEM 30 MG TABLET PO SCH (08:32)
[2020-10-17] MEDS: ASPIRIN CHEW 81 MG TABLET PO SCH (08:32)
[2020-10-17] MEDS: PANTOPRAZOLE 40 MG TABLET PO SCH (08:32)
[2020-10-17] MEDS: MAGNESIUM OXIDE 400 MG TABLET PO SCH (08:32)
[2020-10-17] MEDS: UPTRAVI PO SCH (08:33)
[2020-10-17] MEDS: DEXTROMETHORPHAN ER 6 MG/ML 90 ML/BOTTLE PO PRN (08:36)
[2020-10-17] MEDS: ACETAMINOPHEN 325 MG TABLET PO PRN (08:41)
[2020-10-17 12:23] VITALS: BP 109/78
[2020-10-18] MEDS ORDERED: DILTIAZEM CD 120 MG CAPSULE PO SCH (09:00)
== END 2020-10-17 14:09 | disposition home health service (06) | DRG 683 ==
LOC: N.ED 12:10 → N.EDINP 12:10 → N.TELES 10-11 13:22
PROVIDERS: ADMIT Family Medicine; ATTEND Family Medicine

== ENCOUNTER 2020-12-06 19:46 | Inpatient (IN) ==
[2020-12-06] MEDS ORDERED: ENOXAPARIN 100 MG/ML SYRINGE SUBCUT STA (20:18)
[2020-12-06] MEDS ORDERED: FUROSEMIDE 100 MG/10 ML VIAL IV STA (20:18)
[2020-12-06] MEDS ORDERED: ONDANSETRON 4 MG/2 ML VIAL IV STA (20:18)
[2020-12-06] MEDS ORDERED: methylPREDNISolone SOD SUC 125 MG/2 ML VIAL IV STA (20:18)
[2020-12-06] MEDS ORDERED: ASPIRIN 325 MG TABLET PO STA (20:18)
[2020-12-06] MEDS ORDERED: DILTIAZEM 50 MG/10 ML VIAL IV STA (20:23)
[2020-12-06 20:30] LABS: Basophils # 0.1 10*3/uL (0.0-0.2); Basophils % 0.6 % (0.0-0.8); Eosinophils # 0.5 10*3/uL (0.0-0.87); Eosinophils % 5.9 % (0.00-10.9); Hematocrit 35.1 VOL% (35.7-47.0); Hemoglobin 11.1 GM/DL (12.0-16.0); Immature Granulocytes Absolute 0.08 #; Lymphocytes # 0.9 10*3/uL (1.4-4.0); Lymphocytes % 11.6 % (21.3-54.2); Mean Corpuscular HGB Conc 31.6 GM/DL (32-36); Mean Corpuscular Volume 97.8 FL (87-102); Mean Platelet Volume 10.4 FL (9.6-12.0); Monocytes % 9.1 % (1.7-12.7); Neutrophils % 71.8 % (38.7-73.9); Platelet Count 154 T/CUMM (130-400); Red Blood Count 3.59 MC/CUMM (3.8-5.5); Red Cell Distribution Width 15.5 % (9.3-17.3)
[2020-12-06] MEDS ORDERED: ALBUTEROL NEB SOLN 5 MG/ML 20 ML/BOTTLE CONT NEB SCH (20:30)
[2020-12-06 20:55] LABS: Albumin 3.8 G/DL (3.4-5.0); Bilirubin,Total 0.7 MG/DL (0.2-1.0); Calcium 8.6 MG/DL (8.5-10.1); Osmolality,Calculated 274.8 MOS/KG (273-304); Potassium 3.2 MMOL/L (3.5-5.1); Total Protein 6.4 G/DL (6.4-8.2)
[2020-12-06] MEDS ORDERED: DEXTROSE 50% 25 GM/50 ML VIAL IV STA (20:59)
[2020-12-06] MEDS ORDERED: DEXTROSE 50% 25 GM/50 ML SYRINGE IV ONE (20:59)
[2020-12-06] MEDS ORDERED: POTASSIUM CHLORIDE 20 MEQ TABLET PO STA (21:05)
[2020-12-06 21:27] LABS: Bacteria,Urine Occasional /HPF (Few); Bilirubin,Urine Negative (Negative); Blood, Urine Negative (Negative); Glucose,Urine (UA) Negative (Negative); Hyaline Casts,Urine 13 /LPF (0-3); Ketones,Urine Negative (Negative); Mucus,Urine Occasional /LPF (Occasional); Nitrite,Urine Negative (Negative); Protein,Urine 100 MG/DL; RBC,Urine 1 /HPF (0-4); Squamous Epithelial Cell,Urine Occasional /HPF (0-10); Urine Appearance CLEAR (Clear); Urine Color Straw (Yellow); Urine Specific Gravity 1.004 (1.001-1.035); Urine Urobilinogen < 2.0 EU/DL (0.2-1.0)
[2020-12-06 21:43] LABS: INR 1.2; PT Patient Result 12.8 SECS (10.5-12.0)
[2020-12-06] MEDS ORDERED: MAGNESIUM SULF RIDER 2 GM/50 ML PREMIX IV STA (21:50)
[2020-12-06] MEDS ORDERED: ALBUTEROL/IPRATROPIUM 3 ML NEB RESP TX ONE ×2 (22:18→23:40)
[2020-12-06] MEDS ORDERED: AMIODARONE INJ 450 MG in DEXTROSE 5% 241 ML IV SCH (22:30)
[2020-12-06] MEDS ORDERED: METOPROLOL TARTRATE 5 MG/5 ML VIAL IV STA (22:49)
[2020-12-07] MEDS ORDERED: ONDANSETRON 4 MG TABLET PO PRN (01:13)
[2020-12-07] MEDS ORDERED: ONDANSETRON 4 MG/2 ML VIAL IV PRN (01:13)
[2020-12-07] MEDS ORDERED: DEXTROSE 50% 25 GM/50 ML VIAL IV PRN (01:13)
[2020-12-07] MEDS ORDERED: ALBUTEROL 2.5 MG/3 ML NEB RESP TX PRN (01:13)
[2020-12-07] MEDS ORDERED: PROMETHAZINE 25 MG TABLET PO PRN (01:13)
[2020-12-07] MEDS ORDERED: NITROGLYCERIN SL 0.4 MG TABLET SL PRN (01:13)
[2020-12-07] MEDS ORDERED: GLUCAGON 1 MG VIAL IM PRN (01:13)
[2020-12-07] MEDS ORDERED: MONTELUKAST 10 MG TABLET PO PRN (01:13)
[2020-12-07] MEDS ORDERED: DICLOFENAC 1% GEL 100 GM TUBE TOP PRN (01:13)
[2020-12-07] MEDS ORDERED: LINACLOTIDE 145 MCG CAPSULE PO PRN (01:13)
[2020-12-07] MEDS ORDERED: CYCLOBENZAPRINE 10 MG TABLET PO PRN (01:13)
[2020-12-07] MEDS ORDERED: ACETAMINOPHEN 325 MG TABLET PO PRN (01:13)
[2020-12-07 01:46] LABS: Basophils % 0.4 % (0.0-0.8); Eosinophils # 0.2 10*3/uL (0.0-0.87); Eosinophils % 1.9 % (0.00-10.9); Hematocrit 37.2 VOL% (35.7-47.0); Hemoglobin 11.6 GM/DL (12.0-16.0); Immature Granulocytes % 1.1 %; Lymphocytes # 0.6 10*3/uL (1.4-4.0); Lymphocytes % 6.7 % (21.3-54.2); Mean Corpuscular HGB Conc 31.2 GM/DL (32-36); Mean Corpuscular Volume 97.9 FL (87-102); Mean Platelet Volume 11.4 FL (9.6-12.0); Neutrophils % 87.9 % (38.7-73.9); Platelet Count 149 T/CUMM (130-400); Red Cell Distribution Width 15.6 % (9.3-17.3); White Blood Count 9.2 T/CUMM (4-12)
[2020-12-07 02:31] LABS: Albumin 3.8 G/DL (3.4-5.0); Bilirubin,Total 0.7 MG/DL (0.2-1.0); Calcium 8.7 MG/DL (8.5-10.1); Osmolality,Calculated 276.1 MOS/KG (273-304); Potassium 4.3 MMOL/L (3.5-5.1); Risk Ratio 3.05; Total Protein 6.6 G/DL (6.4-8.2); VLDL CHOLESTEROL 7.2 MG/DL
[2020-12-07] MEDS: INSULIN REGULAR 100 UNIT/ML SUBCUT SCH ×4 (04:24→18:29)
[2020-12-07] MEDS: ALBUTEROL/IPRATROPIUM 3 ML NEB RESP TX SCH ×4 (05:40→19:17)
[2020-12-07] MEDS: BUDESONIDE 0.25 MG/2 ML NEB RESP TX SCH ×2 (07:32→19:17)
[2020-12-07] MEDS: SODIUM CHLORIDE 0.9% 1,000 ML IV SCH (07:35)
[2020-12-07] MEDS: DULoxetine 30 MG CAPSULE PO SCH (08:46)
[2020-12-07] MEDS: DOCUSATE SODIUM 100 MG CAPSULE PO SCH ×2 (08:46→21:12)
[2020-12-07] MEDS: DILTIAZEM 30 MG TABLET PO SCH ×4 (08:46→23:53)
[2020-12-07] MEDS: POTASSIUM CHLORIDE 20 MEQ TABLET PO SCH (08:47)
[2020-12-07] MEDS: allopurinoL 100 MG TABLET PO SCH (08:47)
[2020-12-07] MEDS: PANTOPRAZOLE 40 MG TABLET PO SCH ×2 (08:47→21:12)
[2020-12-07] MEDS: ASPIRIN CHEW 81 MG TABLET PO SCH (08:47)
[2020-12-07] MEDS: FERROUS SULFATE 325 MG TABLET PO SCH ×2 (08:47→21:12)
[2020-12-07] MEDS: ASCORBIC ACID 500 MG TABLET PO SCH ×2 (08:48→21:12)
[2020-12-07] MEDS: CHOLECALCIFEROL 1,000 UNIT TABLET PO SCH (08:48)
[2020-12-07] MEDS: COLCHICINE 0.6 MG CAPSULE PO SCH (08:48)
[2020-12-07] MEDS: MAGNESIUM OXIDE 400 MG TABLET PO SCH (08:48)
[2020-12-07] MEDS: SELEXIPAG 1600 MCG PO SCH ×2 (08:49→21:14)
[2020-12-07] MEDS ORDERED: FUROSEMIDE 80 MG TABLET PO SCH (09:00)
[2020-12-07] MEDS ORDERED: ALBUTEROL/IPRATROPIUM 3 ML NEB RESP TX SCH (09:00)
[2020-12-07] MEDS ORDERED: predniSONE 5 MG TABLET PO SCH (09:00)
[2020-12-07] MEDS ORDERED: PANTOPRAZOLE 40 MG TABLET PO SCH (09:00)
[2020-12-07] MEDS ORDERED: cefTRIAXone 1,000 MG in SODIUM CHLORIDE 0.9% 100 ML IV SCH (15:30)
[2020-12-07] MEDS: methylPREDNISolone SOD SUC 40 MG/1 ML VIAL IV SCH (18:15)
[2020-12-07] MEDS: CLINDAMYCIN INJ 300 MG/50 ML PREMIX IV SCH ×2 (18:15→23:57)
[2020-12-08] MEDS: INSULIN REGULAR 100 UNIT/ML SUBCUT SCH ×4 (00:04→17:40)
[2020-12-08] MEDS: ALBUTEROL/IPRATROPIUM 3 ML NEB RESP TX SCH ×4 (00:08→20:50)
[2020-12-08] MEDS: methylPREDNISolone SOD SUC 40 MG/1 ML VIAL IV SCH ×2 (04:15→16:00)
[2020-12-08 05:13] LABS: Basophils % 0.1 % (0.0-0.8); Eosinophils % 0.1 % (0.00-10.9); Hematocrit 34.9 VOL% (35.7-47.0); Lymphocytes # 0.5 10*3/uL (1.4-4.0); Lymphocytes % 3.6 % (21.3-54.2); Mean Corpuscular HGB Conc 31.5 GM/DL (32-36); Mean Corpuscular Volume 96.9 FL (87-102); Monocytes % 4.4 % (1.7-12.7); Neutrophils % 89.8 % (38.7-73.9); Platelet Count 176 T/CUMM (130-400); Red Cell Distribution Width 15.2 % (9.3-17.3); White Blood Count 14.9 T/CUMM (4-12)
[2020-12-08 05:37] LABS: Lymphocytes 6 % (20-55); Segmented Neutrophils 86 % (50-85); Total Cells Counted 100
[2020-12-08 05:38] LABS: Platelet Estimate Adequate
[2020-12-08] MEDS: DILTIAZEM 30 MG TABLET PO SCH ×3 (05:38→17:48)
[2020-12-08 05:52] LABS: Calcium 8.7 MG/DL (8.5-10.1); Osmolality,Calculated 269.9 MOS/KG (273-304); Potassium 4.7 MMOL/L (3.5-5.1)
[2020-12-08] MEDS: BUDESONIDE 0.25 MG/2 ML NEB RESP TX SCH ×2 (07:20→20:50)
[2020-12-08] MEDS: DOCUSATE SODIUM 100 MG CAPSULE PO SCH ×2 (09:29→20:19)
[2020-12-08] MEDS: POTASSIUM CHLORIDE 20 MEQ TABLET PO SCH (09:30)
[2020-12-08] MEDS: allopurinoL 100 MG TABLET PO SCH (09:30)
[2020-12-08] MEDS: COLCHICINE 0.6 MG CAPSULE PO SCH (09:30)
[2020-12-08] MEDS: FERROUS SULFATE 325 MG TABLET PO SCH ×2 (09:30→20:19)
[2020-12-08] MEDS: CHOLECALCIFEROL 1,000 UNIT TABLET PO SCH (09:30)
[2020-12-08] MEDS: DULoxetine 30 MG CAPSULE PO SCH (09:30)
[2020-12-08] MEDS: SELEXIPAG 1600 MCG PO SCH ×2 (09:30→20:19)
[2020-12-08] MEDS: PANTOPRAZOLE 40 MG TABLET PO SCH ×2 (09:30→20:19)
[2020-12-08] MEDS: ASCORBIC ACID 500 MG TABLET PO SCH ×2 (09:30→20:19)
[2020-12-08] MEDS: ASPIRIN CHEW 81 MG TABLET PO SCH (09:30)
[2020-12-08] MEDS: MAGNESIUM OXIDE 400 MG TABLET PO SCH (09:30)
[2020-12-08] MEDS: CLINDAMYCIN INJ 300 MG/50 ML PREMIX IV SCH ×3 (09:35→23:55)
[2020-12-08] MEDS: SODIUM CHLORIDE 0.9% 1,000 ML IV SCH (09:38)
[2020-12-08] MEDS ORDERED: diphenhydrAMINE CAP 25 MG CAPSULE PO PRN (10:11)
[2020-12-08] MEDS ORDERED: DIGOXIN 0.125 MG TABLET PO SCH (13:00)
[2020-12-08] MEDS: BENZONATATE 100 MG CAPSULE PO PRN (21:28)
[2020-12-09] MEDS: ALBUTEROL/IPRATROPIUM 3 ML NEB RESP TX SCH ×2 (01:02→08:15)
[2020-12-09] MEDS: SODIUM CHLORIDE 0.9% 1,000 ML IV SCH (04:33)
[2020-12-09] MEDS: methylPREDNISolone SOD SUC 40 MG/1 ML VIAL IV SCH (04:45)
[2020-12-09 06:26] LABS: Basophils % 0.1 % (0.0-0.8); Eosinophils % 0.1 % (0.00-10.9); Hematocrit 33.8 VOL% (35.7-47.0); Hemoglobin 11.1 GM/DL (12.0-16.0); Immature Granulocytes % 2.3 %; Immature Granulocytes Absolute 0.28 #; Lymphocytes # 0.6 10*3/uL (1.4-4.0); Lymphocytes % 4.9 % (21.3-54.2); Mean Corpuscular HGB Conc 32.8 GM/DL (32-36); Mean Corpuscular Volume 94.2 FL (87-102); Mean Platelet Volume 10.9 FL (9.6-12.0); Monocytes % 8.1 % (1.7-12.7); Neutrophils % 84.5 % (38.7-73.9); Platelet Count 175 T/CUMM (130-400); Red Blood Count 3.59 MC/CUMM (3.8-5.5); Red Cell Distribution Width 15.1 % (9.3-17.3); White Blood Count 12.1 T/CUMM (4-12)
[2020-12-09] MEDS: INSULIN REGULAR 100 UNIT/ML SUBCUT SCH ×2 (06:36)
[2020-12-09 06:48] LABS: Calcium 8.5 MG/DL (8.5-10.1); Osmolality,Calculated 268.2 MOS/KG (273-304); Potassium 4.5 MMOL/L (3.5-5.1)
[2020-12-09 07:05] LABS: Lymphocytes 8 % (20-55); Ovalocytes Few; Segmented Neutrophils 89 % (50-85); Total Cells Counted 100
[2020-12-09 07:06] LABS: Platelet Estimate Adequate; Target Cells Slight
[2020-12-09] MEDS: BUDESONIDE 0.25 MG/2 ML NEB RESP TX SCH (08:15)
[2020-12-09] MEDS ORDERED: DILTIAZEM CD 120 MG CAPSULE PO SCH (09:00)
[2020-12-09] MEDS: SELEXIPAG 1600 MCG PO SCH (09:45)
[2020-12-09] MEDS: CLINDAMYCIN INJ 300 MG/50 ML PREMIX IV SCH (09:45)
[2020-12-09] MEDS: DOCUSATE SODIUM 100 MG CAPSULE PO SCH (09:46)
[2020-12-09] MEDS: FERROUS SULFATE 325 MG TABLET PO SCH (09:46)
[2020-12-09] MEDS: CHOLECALCIFEROL 1,000 UNIT TABLET PO SCH (09:46)
[2020-12-09] MEDS: DULoxetine 30 MG CAPSULE PO SCH (09:46)
[2020-12-09] MEDS: BENZONATATE 100 MG CAPSULE PO PRN (09:46)
[2020-12-09] MEDS: allopurinoL 100 MG TABLET PO SCH (09:46)
[2020-12-09] MEDS: ASCORBIC ACID 500 MG TABLET PO SCH (09:46)
[2020-12-09] MEDS: ASPIRIN CHEW 81 MG TABLET PO SCH (09:46)
[2020-12-09] MEDS: POTASSIUM CHLORIDE 20 MEQ TABLET PO SCH (09:47)
[2020-12-09] MEDS: PANTOPRAZOLE 40 MG TABLET PO SCH (09:47)
[2020-12-09] MEDS: COLCHICINE 0.6 MG CAPSULE PO SCH (09:47)
[2020-12-09] MEDS: MAGNESIUM OXIDE 400 MG TABLET PO SCH (09:47)
[2020-12-09 12:35] VITALS: BP 136/81
== END 2020-12-09 13:44 | disposition home health service (06) | DRG 291 ==
LOC: N.ED 19:46 → N.EDINP 22:01 → N.TELES 23:23
PROVIDERS: ADMIT Family Medicine; ATTEND Family Medicine

== ENCOUNTER 2021-02-06 11:17 | Observation (INO) ==
[2021-02-06 12:04] LABS: Basophils # 0.1 10*3/uL (0.0-0.2); Basophils % 1.2 % (0.0-0.8); Eosinophils # 0.7 10*3/uL (0.0-0.87); Eosinophils % 8.5 % (0.00-10.9); Hematocrit 40.7 VOL% (35.7-47.0); Immature Granulocytes % 1.1 %; Immature Granulocytes Absolute 0.09 #; Lymphocytes # 1.3 10*3/uL (1.4-4.0); Lymphocytes % 15.9 % (21.3-54.2); Mean Corpuscular HGB Conc 31.9 GM/DL (32-36); Mean Corpuscular Volume 95.5 FL (87-102); Mean Platelet Volume 10.3 FL (9.6-12.0); Monocytes % 9.3 % (1.7-12.7); Platelet Count 169 T/CUMM (130-400); Red Blood Count 4.26 MC/CUMM (3.8-5.5); Red Cell Distribution Width 15.3 % (9.3-17.3); White Blood Count 8.2 T/CUMM (4-12)
[2021-02-06 12:23] LABS: Albumin 4.1 G/DL (3.4-5.0); Bilirubin,Total 0.8 MG/DL (0.20-1.00); Calcium 8.9 MG/DL (8.5-10.1); Osmolality,Calculated 284.4 MOS/KG (273-304); Potassium 3.6 MMOL/L (3.5-5.1); Total Protein 6.4 G/DL (6.4-8.2)
[2021-02-06 15:59] LABS: Ferritin 86.7 ng/ml (8-252)
[2021-02-06] MEDS ORDERED: ACETAMINOPHEN 325 MG TABLET PO PRN (19:18)
[2021-02-06] MEDS ORDERED: ALBUTEROL 2.5 MG/3 ML NEB RESP TX PRN ×2 (19:18→21:00)
[2021-02-06] MEDS ORDERED: ALBUTEROL/IPRATROPIUM 3 ML NEB RESP TX SCH (19:18)
[2021-02-06] MEDS ORDERED: LINACLOTIDE 145 MCG CAPSULE PO PRN (19:18)
[2021-02-06] MEDS ORDERED: PIPERACILLIN/TAZOBACTAM 3,375 MG in SODIUM CHLORIDE 0.9% 100 ML IV STA (19:18)
[2021-02-06] MEDS ORDERED: BENZONATATE 100 MG CAPSULE PO PRN (19:18)
[2021-02-06] MEDS ORDERED: ONDANSETRON 4 MG/2 ML VIAL IV PRN (19:18)
[2021-02-06] MEDS: BUDESONIDE 0.25 MG/2 ML NEB RESP TX SCH (20:02)
[2021-02-06] MEDS ORDERED: LEVALBUTEROL 1.25 MG/3 ML NEB RESP TX PRN (20:06)
[2021-02-06] MEDS: methylPREDNISolone SOD SUC 40 MG/1 ML VIAL IV SCH (20:55)
[2021-02-06] MEDS: ASCORBIC ACID 500 MG TABLET PO SCH (20:55)
[2021-02-06] MEDS: FUROSEMIDE 40 MG/4 ML VIAL IV SCH (20:55)
[2021-02-06] MEDS: DOCUSATE SODIUM 100 MG CAPSULE PO SCH (20:57)
[2021-02-06] MEDS ORDERED: NITROGLYCERIN SL 0.4 MG TABLET SL PRN (22:59)
[2021-02-06] MEDS ORDERED: MONTELUKAST 10 MG TABLET PO PRN (22:59)
[2021-02-06 23:18] LABS: High Sensitive Troponin I* 32.7 ng/L (0-54)
[2021-02-07] MEDS: BUDESONIDE 0.25 MG/2 ML NEB RESP TX SCH ×2 (07:36→20:13)
[2021-02-07] MEDS: LEVALBUTEROL 1.25 MG/3 ML NEB RESP TX SCH ×5 (07:36→23:15)
[2021-02-07] MEDS: DOCUSATE SODIUM 100 MG CAPSULE PO SCH ×2 (08:30→20:48)
[2021-02-07] MEDS: methylPREDNISolone SOD SUC 40 MG/1 ML VIAL IV SCH ×2 (08:30→20:53)
[2021-02-07] MEDS: FUROSEMIDE 40 MG/4 ML VIAL IV SCH ×2 (08:30→16:38)
[2021-02-07] MEDS: DULoxetine 30 MG CAPSULE PO SCH (08:30)
[2021-02-07] MEDS: ASCORBIC ACID 500 MG TABLET PO SCH ×2 (08:30→20:48)
[2021-02-07] MEDS: ASPIRIN CHEW 81 MG TABLET PO SCH (08:31)
[2021-02-07] MEDS: PANTOPRAZOLE 40 MG TABLET PO SCH (08:31)
[2021-02-07] MEDS: POTASSIUM CHLORIDE 20 MEQ TABLET PO SCH ×3 (08:31→20:48)
[2021-02-07] MEDS: MAGNESIUM OXIDE 400 MG TABLET PO SCH (08:31)
[2021-02-07] MEDS: allopurinoL 100 MG TABLET PO SCH (08:31)
[2021-02-07] MEDS: DILTIAZEM CD 120 MG CAPSULE PO SCH (08:31)
[2021-02-07] MEDS: METOPROLOL TARTRATE 25 MG TABLET PO SCH ×2 (08:31→20:49)
[2021-02-07 10:31] LABS: Basophils # 0.1 10*3/uL (0.0-0.2); Basophils % 0.4 % (0.0-0.8); Eosinophils % 0.2 % (0.00-10.9); Hematocrit 42.5 VOL% (35.7-47.0); Hemoglobin 13.9 GM/DL (12.0-16.0); Immature Granulocytes Absolute 0.13 #; Lymphocytes # 0.9 10*3/uL (1.4-4.0); Lymphocytes % 6.8 % (21.3-54.2); Mean Corpuscular HGB Conc 32.7 GM/DL (32-36); Mean Corpuscular Volume 96.2 FL (87-102); Mean Platelet Volume 10.4 FL (9.6-12.0); Monocytes % 2.8 % (1.7-12.7); Neutrophils % 88.8 % (38.7-73.9); Platelet Count 209 T/CUMM (130-400); Red Blood Count 4.42 MC/CUMM (3.8-5.5); Red Cell Distribution Width 14.9 % (9.3-17.3); White Blood Count 13.3 T/CUMM (4-12)
[2021-02-07 10:51] LABS: Albumin 4.2 G/DL (3.4-5.0); Bilirubin,Total 0.6 MG/DL (0.20-1.00); Calcium 9.3 MG/DL (8.5-10.1); Potassium 4.3 MMOL/L (3.5-5.1)
[2021-02-07] MEDS: DIGOXIN 0.125 MG TABLET PO SCH (14:00)
[2021-02-08] MEDS: LEVALBUTEROL 1.25 MG/3 ML NEB RESP TX SCH ×3 (04:30→11:16)
[2021-02-08] MEDS: BUDESONIDE 0.25 MG/2 ML NEB RESP TX SCH (07:42)
[2021-02-08 07:43] LABS: Basophils % 0.1 % (0.0-0.8); Eosinophils % 0.1 % (0.00-10.9); Hematocrit 41.6 VOL% (35.7-47.0); Hemoglobin 13.3 GM/DL (12.0-16.0); Immature Granulocytes % 2.4 %; Lymphocytes # 0.9 10*3/uL (1.4-4.0); Lymphocytes % 5.3 % (21.3-54.2); Mean Corpuscular Volume 96.1 FL (87-102); Mean Platelet Volume 10.8 FL (9.6-12.0); Monocytes % 3.6 % (1.7-12.7); Neutrophils % 88.5 % (38.7-73.9); Platelet Count 205 T/CUMM (130-400); Red Blood Count 4.33 MC/CUMM (3.8-5.5); White Blood Count 16.5 T/CUMM (4-12)
[2021-02-08 07:51] LABS: Bilirubin,Total 0.6 MG/DL (0.20-1.00); Calcium 8.5 MG/DL (8.5-10.1); Potassium 4.7 MMOL/L (3.5-5.1); Total Protein 6.6 G/DL (6.4-8.2)
[2021-02-08] MEDS: PANTOPRAZOLE 40 MG TABLET PO SCH (08:36)
[2021-02-08] MEDS: ASCORBIC ACID 500 MG TABLET PO SCH (08:36)
[2021-02-08] MEDS: ASPIRIN CHEW 81 MG TABLET PO SCH (08:36)
[2021-02-08] MEDS: DOCUSATE SODIUM 100 MG CAPSULE PO SCH ×2 (08:36→08:57)
[2021-02-08] MEDS: allopurinoL 100 MG TABLET PO SCH (08:36)
[2021-02-08] MEDS: DULoxetine 30 MG CAPSULE PO SCH (08:36)
[2021-02-08] MEDS: POTASSIUM CHLORIDE 20 MEQ TABLET PO SCH ×2 (08:37→15:16)
[2021-02-08] MEDS: METOPROLOL TARTRATE 25 MG TABLET PO SCH (08:37)
[2021-02-08] MEDS: DILTIAZEM CD 120 MG CAPSULE PO SCH (08:37)
[2021-02-08] MEDS: MAGNESIUM OXIDE 400 MG TABLET PO SCH (08:37)
[2021-02-08] MEDS: methylPREDNISolone SOD SUC 40 MG/1 ML VIAL IV SCH (08:39)
[2021-02-08] MEDS: FUROSEMIDE 40 MG/4 ML VIAL IV SCH (08:43)
[2021-02-08 12:46] VITALS: BP 100/76
[2021-02-08] MEDS: DIGOXIN 0.125 MG TABLET PO SCH (13:01)
== END 2021-02-08 15:46 | disposition home health service (06) ==
LOC: N.EDINP 11:17 → N.ED 11:17 → N.EDINP 02-07 06:40 → N.TELEN 02-07 06:55
PROVIDERS: ADMIT Family Medicine; ATTEND Family Medicine